=== PATIENT | male | born 1950 | race Caucasian/White ===

== ENCOUNTER 2019-08-12 12:22 | Emergency (ER) | payer MEDICARE, BC ==
[2019-08-12 12:59] VITALS: BP 138/66; PULSE 92
--- NOTE | 2019-08-12 14:16 | EDM.PDOC ---
ED HPI GENERAL MEDICAL PROBLEM - General Chief Complaint: Head Injury Stated Complaint: FALL - R EYE SWOLLEN Time Seen by Provider: 08/12/19 13:45 Source of Information: Reports: Patient History Limitations: Reports: No Limitations - History of Present Illness INITIAL COMMENTS - FREE TEXT/NARRATIVE: Very pleasant 69-year-old presents with his son today for evaluation of head trauma. He has had ongoing issues with falls at home, currently undergoing workup by multiple specialists and working with his PCP to determine the etiology of this. He presents today because two nights ago he had 3 falls at home and struck the right side of his face. This morning he noted the bruising and swelling had become quite prominent, his son contacted a friend who is an ER doctor and they were instructed to come to the emergency department. 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 In addition to this he has COPD , currently on home O2, as well as extensive coronary artery disease. The patient denies any significant pain. He is having no headache. No vision changes. No numbness or weakness in the extremities. No neck pain. - Related Data Allergies Allergy/AdvReac Type Severity Reaction Status Date / Time No Known Allergies Allergy Verified 08/12/19 12:41 Home Meds: Home Meds Latanoprost [Xalatan 0.005% Ophth Soln] 1 drop EYEBOTH BEDTIME 02/03/14 [History ] Metoprolol Tartrate [Lopressor] 25 mg PO BID 02/03/14 [History] Multivitamin [Multivitamins] 1 each PO DAILY 02/03/14 [History] Simvastatin [Zocor] 20 mg PO BEDTIME 02/07/14 [History] Citalopram Hydrobromide [Celexa] 20 mg PO DAILY 08/03/19 [History] ClonazePAM [KlonoPIN] 0.5 mg PO BEDTIME 08/03/19 [History] Furosemide 40 mg PO BID 08/03/19 [History] Losartan [Cozaar] 25 mg PO DAILY 08/03/19 [History] Melatonin 5 mg PO BEDTIME 08/03/19 [History] NIFEdipine [Adalat cc] 30 mg PO DAILY 08/03/19 [History] Naproxen Sodium 220 mg PO DAILY 08/03/19 [History] Rivaroxaban [Xarelto] 20 mg PO BEDTIME 08/03/19 [History] Timolol [Betimol 0.5% Ophth Soln] 1 drop EYEBOTH ASDIRECTED 08/03/19 [History] Zolpidem Tartrate 10 mg PO BEDTIME 08/03/19 [History] Past Medical History HEENT History: Reports: Hard of Hearing, Impaired Vision Cardiovascular History: Reports: CAD, Heart Failure, High Cholesterol, Hypertension, PVD, Stents Respiratory History: Reports: COPD, Sleep Apnea, SOB Musculoskeletal History: Reports: None Psychiatric History: Reports: Anxiety, Depression Endocrine/Metabolic History: Reports: Obesity/BMI 30+ Hematologic History: Reports: Anticoagulation Therapy, Blood Transfusion(s) Oncologic (Cancer) History: Reports: Basal Cell Carcinoma 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 Dermatologic History: Reports: None - Past Surgical History Head Surgeries/Procedures: Reports: None HEENT Surgical History: Reports: None Cardiovascular Surgical History: Reports: Coronary Artery Stent Respiratory Surgical History: Reports: None Endocrine Surgical History: Reports: None Musculoskeletal Surgical History: Reports: Other (See Below) Other Musculoskeletal Surgeries/Procedures:: right leg, right thumb, knee surgery Oncologic Surgical History: Reports: None Dermatological Surgical History: Reports: Skin Biopsy, Skin Graft Social & Family History - Tobacco Use Smoking Status *Q: Current Every Day Smoker Years of Tobacco use: 55 Packs/Tins Daily: 1 Used Tobacco, but Quit: No Second Hand Smoke Exposure: No - Caffeine Use Caffeine Use: Reports: Coffee, Soda - Recreational Drug Use Recreational Drug Use: No ED ROS GENERAL - Review of Systems Review Of Systems: See Below Constitutional: Reports: No Symptoms HEENT: Reports: No Symptoms Respiratory: Reports: No Symptoms Cardiovascular: Reports: No Symptoms Endocrine: Reports: No Symptoms GI/Abdominal: Reports: No Symptoms : Reports: No Symptoms Musculoskeletal: Reports: No Symptoms Skin: Reports: Bruising Neurological: Reports: No Symptoms Psychiatric: Reports: No Symptoms Hematologic/Lymphatic: Reports: Easy Bruising Immunologic: Reports: No Symptoms ED EXAM, HEAD INJURY - Physical Exam Exam: See Below Exam Limited By: No Limitations General Appearance: Alert, No Apparent Distress Head: Other (Scattered ecchymosis on the right forehead, periorbital, and right cheek. Extraocular movements are intact without pain. No proptosis. No facial bone instability.) Nexus Criteria: No: Posterior, Midline Cervical Tenderness, Evidence of Intoxication, Altered Level of Consciousness, Focal Neurological Deficit, Painful Distraction Injuries Eyes: Bilateral Eye: EOMI Ears: Normal External Exam Nose: Normal Inspection Throat/Mouth: Normal Inspection Neck: Non-Tender. No: Limited Range of Motion, Painful Range of Motion, Paraspinous Muscle Tender, Spinous Processes Tender, Tenderness, Tender Lateral , Tender Midline Respiratory: No Respiratory Distress, Other (distant lung sounds) Cardiovascular: Regular Rate, Rhythm GI/Abdominal Exam: Soft, Non-Tender Back Exam: Other (old appearing soft tissue echymosis right flank) Neurologic: No Motor/Sensory Deficits, Oriented x 3. No: Motor Weakness Skin: Normal Color, Warm/Dry Course - Vital Signs Last Recorded V/S: Last Vital Signs Temp 35.9 C 08/12/19 12:51 Pulse 92 08/12/19 12:51 Resp 18 08/12/19 12:51 BP 138/66 08/12/19 12:51 Pulse Ox 91 L 08/12/19 12:51 - Re-Assessments/Exams Free Text/Narrative Re-Assessment/Exam: 69-year-old presents with concerns of right-sided facial trauma after mechanical fall. He is on xarelto. He is neurologically intact. We had a long discussion regarding the risks benefits of his Xarelto given his frequent falls at home. Is not clear to me whether he is on this for provoked vs unprovoked DVT. He is planning to discuss this with his jewelry finisher at upcoming appointment this week and his PCP. His son was also present and understands the importance of sorting out whether it is appropriate to continue him on anticoagulation. Regarding the traumatic workup, he has no evidence of facial bone instability, intact extraocular movements setting of previous dedicated facial bone imaging. We will obtain a noncontrast CT of the head. I have clinically cleared his C-spine. Do not feel that further traumatic workup is indicated at this time. 08/12/19 14:18 Free Text/Narrative Re-Assessment/Exam: Head CT unremarkable Safe for discharge in care of his son 08/12/19 15:25 Departure - Departure Time of Disposition: 15:25 Disposition: Home, Self-Care 01 Clinical Impression: Anticoagulant long-term use Facial bruising Qualifiers: Encounter type: initial encounter Qualified Code(s): S00.83XA - Contusion of other part of head, initial encounter Fall Qualifiers: Encounter type: initial encounter Qualified Code(s): W19.XXXA - Unspecified fall, initial encounter - Discharge Information Referrals: Sixto Kay MD [Primary Care Provider] - Forms: ED Department Discharge Additional Instructions: Please discuss your falls with your jewelry finisher and primary doctor, as you may want to consider stopping your blood thinner. Return to the ER anytime you fall and hit your head while you are on blood thinners.
--- NOTE | 2019-08-12 15:17 | CRLCT ---
INDICATION: Fall. Patient on blood thinners. TECHNIQUE: CT head without contrast. COMPARISON: Brain MRI August 08, 2019. FINDINGS: CSF spaces: Within normal limits for age. Brain parenchyma and extra-axial spaces: The jasso-white differentiation is normal. No sign of mass, hemorrhage, or midline shift. No extra-axial fluid collection. Skull base and calvarium: The visualized paranasal sinuses and mastoid air cells demonstrate no acute or significant findings. The visualized orbits are grossly unremarkable. No skull fractures. There are right frontal post craniotomy changes. A frontal scalp hematoma is present. IMPRESSION: Frontal scalp hematoma. No intracranial hemorrhage or fracture. Dictated by Monroe Hayes MD @ 08/12/2019 3:16:19 PM Please note that all CT scans at this facility use dose modulation, iterative reconstruction, and/or weight-based dosing when appropriate to reduce radiation dose to as low as reasonably achievable. Dictated by: Monroe Hayes MD @ 08/12/2019 15:16:23 (Electronically Signed)
== END 2019-08-12 15:36 | disposition home or self-care (01) ==
LOC: JP.ED 12:22
DX: S00.83XA Contusion of other part of head, initial encounter (principal); J44.9 Chronic obstructive pulmonary disease, unspecified; F17.210 Nicotine dependence, cigarettes, uncomplicated; E78.00 Pure hypercholesterolemia, unspecified; E66.9 Obesity, unspecified; F41.9 Anxiety disorder, unspecified; F32.9 Major depressive disorder, single episode, unspecified; Z79.01 Long term (current) use of anticoagulants; Z79.899 Other long term (current) drug therapy; Z68.43 Body mass index [BMI] 50.0-59.9, adult; W19.XXXA Unspecified fall, initial encounter
CPT/HCPCS: 70450; 99282; 99283-25

== ENCOUNTER 2019-08-25 11:37 | Inpatient (IN) | payer MEDICARE, BC ==
[2019-08-25] MEDS ORDERED: Albuterol 0.083% 2.5 MG/3 ML Neb Soln NEB PRN (11:53)
[2019-08-25] MEDS ORDERED: Sodium Chloride 0.9% 10 ML Syringe FLUSH PRN (11:53)
--- NOTE | 2019-08-25 12:07 | PCM.HP.2 ---
H&P History of Present Illness - General Date of Service: 08/25/19 Admit Problem/Dx: Admission Diagnosis/Problem Admission Diagnosis/Problem Edema of lower extremity Source of Information: Patient, Family, Old Records, Provider, RN Notes Reviewed History Limitations: Reports: No Limitations - History of Present Illness Initial Comments - Free Text/Narative: Mr. Wilson is a 69-year-old gentleman who was admitted direct admission from the clinic with progressive hypoxia and anasarca. He has had difficulty over the past 3 months with progressive increase in shortness of breath and progressive fluid retention. He is undergone fairly extensive evaluation including CT scan of the chest without contrast that showed no obvious abnormalities. CT scan of the chest with IV contrast showing no evidence of pulmonary emboli or other significant abnormalities. Echocardiogram showing normal left ventricular systolic function with severe left ventricular hypertrophy and moderate diastolic dysfunction. There were no significant valvular abnormalities, they were unable to accurately assess right ventricular pressures. He has received diuretic therapy and is experienced moderate weight loss. Extremely sleepy and lethargic when seen today, commonly falling asleep during the interview. He has been evaluated for sleep apnea and is awaiting a second study for CPAP titration. Supplemental oxygen which she had not previously required. - Related Data Allergies/Adverse Reactions: Allergies Allergy/AdvReac Type Severity Reaction Status Date / Time cephalexin [From Keflex] Allergy Intermediate Swelling Verified 08/25/19 12:33 Home Medications: Home Meds Latanoprost [Xalatan 0.005% Ophth Soln] 1 drop EYEBOTH BEDTIME 02/03/14 [History ] Metoprolol Tartrate [Lopressor] 25 mg PO BID 02/03/14 [History] Multivitamin [Multivitamins] 1 each PO DAILY 02/03/14 [History] Simvastatin [Zocor] 20 mg PO BEDTIME 02/07/14 [History] Citalopram Hydrobromide [Celexa] 20 mg PO DAILY 08/03/19 [History] ClonazePAM [KlonoPIN] 0.5 mg PO BEDTIME PRN 08/03/19 [History] Furosemide 40 mg PO BID 08/03/19 [History] Losartan [Cozaar] 25 mg PO DAILY 08/03/19 [History] Melatonin 5 mg PO BEDTIME 08/03/19 [History] NIFEdipine [Adalat cc] 30 mg PO DAILY 08/03/19 [History] Naproxen Sodium 220 mg PO DAILY 08/03/19 [History] Rivaroxaban [Xarelto] 20 mg PO BEDTIME 08/03/19 [History] Zolpidem Tartrate 10 mg PO BEDTIME 08/03/19 [History] Albuterol/Ipratropium [DuoNeb 3.0-0.5 MG/3 ML] 1 vial INH Q4H PRN 08/25/19 [ History] Past Medical History HEENT History: Reports: Hard of Hearing, Impaired Vision Cardiovascular History: Reports: CAD, Heart Failure, High Cholesterol, Hypertension, PVD, Stents Respiratory History: Reports: COPD, Sleep Apnea, SOB Musculoskeletal History: Reports: None Psychiatric History: Reports: Anxiety, Depression Endocrine/Metabolic History: Reports: Obesity/BMI 30+ Hematologic History: Reports: Anticoagulation Therapy, Blood Transfusion(s) Oncologic (Cancer) History: Reports: Basal Cell Carcinoma 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 Dermatologic History: Reports: None - Past Surgical History Head Surgeries/Procedures: Reports: None HEENT Surgical History: Reports: None Cardiovascular Surgical History: Reports: Coronary Artery Stent Respiratory Surgical History: Reports: None Endocrine Surgical History: Reports: None Musculoskeletal Surgical History: Reports: Other (See Below) Other Musculoskeletal Surgeries/Procedures:: right leg, right thumb, knee surgery Oncologic Surgical History: Reports: None Dermatological Surgical History: Reports: Skin Biopsy, Skin Graft Social & Family History - Caffeine Use Caffeine Use: Reports: Coffee, Soda H&P Review of Systems - Review of Systems: Review Of Systems: See Below General: Reports: Malaise, Weakness. Denies: Fever, Chills HEENT: Reports: No Symptoms Pulmonary: Reports: Shortness of Breath, Cough. Denies: Wheezing, Pleuritic Chest Pain, Sputum, Hemoptysis Cardiovascular: Reports: Dyspnea on Exertion, Edema. Denies: Chest Pain, Palpitations, Orthopnea, PND, Lightheadedness Gastrointestinal: Reports: No Symptoms Genitourinary: Reports: No Symptoms Musculoskeletal: Reports: No Symptoms Skin: Reports: No Symptoms Psychiatric: Reports: No Symptoms Neurological: Reports: No Symptoms Hematologic/Lymphatic: Reports: No Symptoms Immunologic: Reports: No Symptoms Exam - Exam Exam: See Below - Exam Quality Assessment: DVT Prophylaxis General: Oriented, Cooperative, Mild Distress, Lethargic HEENT: Conjunctiva Clear, Hearing Intact, Mucosa Moist & [place], Normal Nasal Septum, Posterior Pharynx Clear, Pupils Equal Neck: Supple, Trachea Midline, +2 Carotid Pulse wo Bruit Lungs: Clear to Auscultation, Normal Respiratory Effort, Decreased Breath Sounds. No: Rales, Rhonchi, Wheezing Cardiovascular: Regular Rate, Regular Rhythm, Normal S1, Normal S2. No: Systolic Murmur, Diastolic Murmur GI/Abdominal Exam: Soft, Non-Tender, No Organomegaly, No Distention Back Exam: Normal Inspection, Full Range of Motion Extremities: Other (Anasarca with changes of chronic venous stasis) Skin: Warm, Dry Neurological: Cranial Nerves Intact, Strength Equal Bilateral, Normal Speech, Normal Tone, Sensation Intact. No: Focal Deficit Neuro Extensive - Mental Status: Normal Mood/Affect, Normal Cognition, Memory Intact - Patient Data Result Diagrams: 08/25/19 12:22 08/25/19 12:22 *Q Meaningful Use (ADM) - VTE Risk Assess *Q Each Risk Factor Represents 1 Point: Obesity ( BMI > 25 kg/m2), Congestive heart failure (CHF), Abnormal Pulmonary Function (COPD) Total Score 1 Point Risk Factors: 3 Each Risk Factor Represents 2 Points: Age 60 - 74 Years Total Score 2 Point Risk Factors: 2 Each Risk Factor Represents 3 Points: None Total Score 3 Point Risk Factors: 0 Each Risk Factor Represents 5 Points: None Total Score 5 Point Risk Factors: 0 Venous Thromboembolism Risk Factor Score *Q: 5 Problem List Initiated/Reviewed/Updated: Yes Orders Last 24hrs: Active Orders 24 hr Category Date Time Status Patient Status [ADT] Routine ADT 08/25/19 11:53 Active Ambulate [RC] QID Care 08/25/19 11:53 Active Cardiac Monitoring [RC] .As Directed Care 08/25/19 11:55 Active Height and Weight [RC] DAILY Care 08/25/19 11:53 Active Intake and Output [RC] QSHIFT Care 08/25/19 11:53 Active Notify Provider Vital Signs [RC] ASDIRECTED Care 08/25/19 11:53 Active Oxygen Therapy [RC] PRN Care 08/25/19 11:53 Active Pulse Oximetry [RC] CONTINUOUS Care 08/25/19 11:56 Active RT Aerosol Therapy [RC] ASDIRECTED Care 08/25/19 11:59 Active Up With Assistance [RC] ASDIRECTED Care 08/25/19 11:53 Active Up to Chair [RC] QID Care 08/25/19 11:53 Active VTE/DVT Education [RC] Per Unit Routine Care 08/25/19 11:53 Active Vital Signs [RC] Q4H Care 08/25/19 11:53 Active 2 Gram Sodium Diet [DIET] Diet 08/25/19 Lunch Active Chest 2V [CR] Stat Exams 08/25/19 11:53 Ordered CBC WITH AUTO DIFF [HEME] Stat Lab 08/25/19 11:53 Ordered COMPREHENSIVE METABOLIC PN,CMP [CHEM] Stat Lab 08/25/19 11:53 Ordered MAGNESIUM [CHEM] Stat Lab 08/25/19 11:53 Ordered Acetaminophen [Tylenol] Med 08/25/19 11:53 Active 650 mg PO Q4H PRN Albuterol [Proventil Neb Soln] Med 08/25/19 11:53 Active 2.5 mg NEB Q4H PRN Albuterol/Ipratropium [DuoNeb 3.0-0.5 MG/3 ML] Med 08/25/19 16:00 Ordered 3 ml NEB QID Bumetanide [Bumex] Med 08/25/19 11:53 Once 4 mg IVPUSH ONETIME ONE Polyethylene Glycol 3350 [MiraLAX] Med 08/25/19 11:53 Ordered 17 gm PO DAILY PRN Sodium Chloride 0.9% [Saline Flush] Med 08/25/19 11:53 Ordered 10 ml FLUSH ASDIRECTED PRN Saline Lock Insert [OM.PC] Routine Oth 08/25/19 11:53 Ordered Resuscitation Status Routine Resus Stat 08/25/19 11:53 Ordered Medication Orders Acetaminophen (Tylenol) 650 mg PO Q4H PRN PRN Reason: Pain (Mild 1-3)/fever Albuterol (Proventil Neb Soln) 2.5 mg NEB Q4H PRN PRN Reason: Shortness Of Breath/wheezing Albuterol/Ipratropium (Duoneb 3.0-0.5 Mg/3 Ml) 3 ml NEB QID VANESSA Bumetanide (Bumex) 4 mg IVPUSH ONETIME ONE Stop: 08/25/19 11:54 Polyethylene Glycol (Miralax) 17 gm PO DAILY PRN PRN Reason: Constipation Sodium Chloride (Saline Flush) 10 ml FLUSH ASDIRECTED PRN PRN Reason: Keep Vein Open Assessment/Plan Comment:: ASSESSMENT AND PLAN HYPOXIA-likely multifactorial secondary to hypoventilation from obesity and chronic sleep apnea. There also appears to be some component of diastolic congestive heart failure. As the x-ray shows atelectasis versus infiltrate right middle lobe. White blood cell count is within normal range, he has had no significant temperature elevation, minimal cough, moderate elevation in CRP and normal procalcitonin. Previous evaluation has included negative CT scan for pulmonary emboli and echocardiogram showing normal systolic function with moderate diastolic dysfunction and severe left ventricular hypertrophy. -Arterial blood gases -Hold on antibiotic therapy -Trial of BiPAP -IV Bumex for diuresis -Repeat echocardiogram to reassess left ventricular function ANASARCA-he has a known history of chronic peripheral edema with venous stasis, significantly worse over the past few months. Echocardiogram was unable to estimate right-sided pressures, suspect that he does have some component of cor pulmonale related to underlying lung disease and sleep apnea. -2 g sodium diet -Diuretic therapy as above DIASTOLIC CONGESTIVE HEART FAILURE -Diuretic therapy as above SLEEP APNEA-he has undergone a sleep study showing evidence of obstructive sleep apnea. He has been unable to get in for his CPAP titration study. -Trial of BiPAP as above CORONARY ARTERY DISEASE-currently asymptomatic, denies any symptoms of chest pain or pressure. Recently saw cardiology and did undergo some testing in [place]. Will obtain cardiology notes for review. -Continue outpatient medical therapy MAINTENANCE ISSUES -DVT prophylaxis; current therapy with Xarelto should provide adequate DVT prophylaxis -GI prophylaxis; not indicated -Pena catheter; not indicated -Nutrition; 2 g sodium diet -Nicotine dependence; 21 mg nicotine patch CODE STATUS-FULL CODE ADMISSION STATUS-patient will be admitted to inpatient status, expect at least a 2 night hospital stay for evaluation and management of problems as outlined above. At the time of this admission I do not reasonably expected evaluation and management of this problem will require more than a 96 hour hospital stay. DISPOSITION-anticipate discharge to home after the hospital stay. PRIMARY CARE PROVIDER-Dr. Kay - Mortality Measure Prognosis:: Good
--- NOTE | 2019-08-25 13:01 | CRLCR ---
Indication: Hypoxia Technique: Chest 2 views Comparison: None Findings: Cardiovascular and mediastinum: Cardiomegaly with diffuse pulmonary vascular congestion. Lungs and pleural spaces: Large dense airspace opacity in the right middle lobe. Remainder of the lungs and pleural spaces are clear. No pneumothorax. Bones and soft tissues: No significant findings. Impression: Large area of pneumonia and/or atelectasis in the right middle lobe. There is also evidence of CHF with diffuse interstitial edema. Dictated by Monroe Hayes MD @ Aug 25 2019 12:58PM Signed by Dr. Monroe Hayes @ Aug 25 2019 12:59PM
[2019-08-25] MEDS ORDERED: Bumetanide 1 MG/4 ML MDV IVPUSH ONE (14:00)
[2019-08-25] MEDS: Albuterol/Ipratropium 3.0-0.5 MG/3 ML Neb Soln NEB SCH ×2 (14:27→20:24)
[2019-08-25] MEDS: Rivaroxaban 10 MG Tab PO SCH (17:04)
[2019-08-25] MEDS: Levofloxacin/Dextrose 5%-Water 750 MG in Premix Bag 1 BAG IV SCH (20:29)
[2019-08-25] MEDS ORDERED: Non-Formulary Medication 1 Each (Rivaroxaban [Xarelto] 20 MG) PO SCH (21:00)
[2019-08-25] MEDS ORDERED: Non-Formulary Medication 1 Each (Melatonin [Melatonin] 5 MG) PO SCH (21:00)
[2019-08-25] MEDS: Melatonin 3 MG Tab PO SCH (21:20)
[2019-08-25] MEDS: Latanoprost 0.005% Ophth Soln 2.5 ML Bottle EYEBOTH SCH (21:21)
[2019-08-25] MEDS: Metoprolol Tartrate 25 MG Tab PO SCH (21:21)
[2019-08-26] MEDS: ClonazePAM 0.5 MG Tab PO PRN ×2 (03:37→22:40)
[2019-08-26] MEDS: Albuterol/Ipratropium 3.0-0.5 MG/3 ML Neb Soln NEB SCH ×4 (06:59→21:07)
[2019-08-26] MEDS ORDERED: Potassium Chloride 20 MEQ Tab.ER PO ONE ×2 (09:00→17:00)
[2019-08-26] MEDS ORDERED: Bumetanide 1 MG/4 ML MDV IVPUSH ONE (09:00)
[2019-08-26] MEDS ORDERED: Non-Formulary Medication 1 Each (Citalopram Hydrobromide [Celexa] 20 MG) PO SCH (09:00)
[2019-08-26] MEDS ORDERED: Citalopram 20 MG Tab PO SCH (09:00)
[2019-08-26] MEDS: Losartan 25 MG Tab PO SCH (09:02)
[2019-08-26] MEDS: Metoprolol Tartrate 25 MG Tab PO SCH ×2 (09:03→21:14)
--- NOTE | 2019-08-26 10:55 | CRLCR ---
Indication: Follow-up atelectasis/infiltrate. Technique: Single AP portable view of the chest was obtained Comparison: August 25, 2019. Findings: The heart is enlarged. Bibasilar atelectasis and/or infiltrates are identified. There is improved aeration of the right lower lobe. No pleural effusion or pneumothorax identified. Median sternotomy wires are identified. Impression: Improved aeration of the right lower lobe Dictated by Sarah Roche MD @ Aug 26 2019 10:53AM Signed by Dr. Sarah Roche @ Aug 26 2019 10:54AM
--- NOTE | 2019-08-26 10:56 | PCM.PN ---
- General Info Date of Service: 08/26/19 Subjective Update: Mr. Wilson is shown only very minimal improvement since admission yesterday. He is currently on noninvasive positive pressure ventilation with adequate tidal volumes. Chest x-ray shows area of atelectasis versus infiltrate somewhat improved. Continued evidence of congestive heart failure. Renal function slightly worse with diuresis yesterday. He remains very sleepy and lethargic, difficult to arouse and does admit to ongoing depression. He is not very interested in participating in conversation, unable to obtain a meaningful history concerning symptoms or review of systems. - Review of Systems General: Denies: Chills - Patient Data Vitals - Most Recent: Last Vital Signs Temp 96.0 F 08/26/19 07:00 Pulse 88 08/26/19 09:03 Resp 22 H 08/26/19 09:00 BP 133/78 08/26/19 09:03 Pulse Ox 96 08/26/19 09:00 Weight - Most Recent: 336 lb 6.4 oz I&O - Last 24 Hours: Intake & Output 08/25/19 08/26/19 08/26/19 22:59 06:59 14:59 Intake Total 690 780 Output Total 2400 900 600 Balance -1710 -120 -600 Lab Results Last 24 Hours: Laboratory Results - last 24 hr 08/25/19 08/25/19 08/25/19 Range/Units 12:20 12:22 12:22 WBC 8.6 (4.5-11.0) K/uL RBC 4.13 L (4.30-5.90) M/uL Hgb 10.8 L (12.0-15.0) g/dL Hct 37.6 L (40.0-54.0) % MCV 91 (80-98) fL MCH 26 L (27-31) pg MCHC 29 L (32-36) % Plt Count 191 (150-400) K/uL Neut % (Auto) 71 H (36-66) % Lymph % (Auto) 14 L (24-44) % [place] % (Auto) 13 H (2-6) % Eos % (Auto) 2 (2-4) % Baso % (Auto) 1 (0-1) % Puncture Site ABG pH (7.350-7.450) ABG pCO2 (35.0-42.0) mmHg ABG pO2 (75.0-100.0) mmHg ABG HCO3 (22.0-26.0) mmol/L ABG Total CO2 (23.0-27.0) mmol/L ABG O2 Saturation (95.0-98.0) % ABG O2 Content (15.0-23.0) %vol ABG Base Excess mm/L ABG Hemoglobin (13.5-18.0) g/dL ABG Oxyhemoglobin % ABG Carboxyhemoglobin (0.0-1.6) % ABG Methemoglobin % Santiago Test O2 Delivery Device Oxygen Flow Rate L Sodium 141 (140-148) mmol/L Potassium 3.9 (3.6-5.2) mmol/L Chloride 101 (100-108) mmol/L Carbon Dioxide 33 H (21-32) mmol/L Anion Gap 10.9 (5.0-14.0) mmol/L BUN 32 H (7-18) mg/dL Creatinine 1.3 (0.8-1.3) mg/dL Est Cr Clr Drug Dosing 53.81 mL/min Estimated GFR (MDRD) 54 L (>60) Glucose 104 (74-106) mg/dL Calcium 9.0 (8.5-10.1) mg/dL Magnesium 2.2 (1.8-2.4) mg/dL Total Bilirubin 0.8 (0.2-1.0) mg/dL AST 37 (15-37) U/L ALT 41 (12-78) U/L Alkaline Phosphatase 80 (46-116) U/L C-Reactive Protein (0.0-0.3) mg/dL Total Protein 7.5 (6.4-8.2) g/dL Albumin 2.9 L (3.4-5.0) g/dL Globulin 4.6 H (2.3-3.5) g/dL Albumin/Globulin Ratio 0.6 L (1.2-2.2) Procalcitonin < 0.05 ng/mL TSH, Ultra Sensitive (0.358-3.740) uIU/mL 08/25/19 08/25/19 08/25/19 Range/Units 15:21 15:21 22:35 WBC (4.5-11.0) K/uL RBC (4.30-5.90) M/uL Hgb (12.0-15.0) g/dL Hct (40.0-54.0) % MCV (80-98) fL MCH (27-31) pg MCHC (32-36) % Plt Count (150-400) K/uL Neut % (Auto) (36-66) % Lymph % (Auto) (24-44) % [place] % (Auto) (2-6) % Eos % (Auto) (2-4) % Baso % (Auto) (0-1) % Puncture Site Rt radial ABG pH 7.416 (7.350-7.450) ABG pCO2 55.3 H (35.0-42.0) mmHg ABG pO2 62.4 L (75.0-100.0) mmHg ABG HCO3 34.9 H (22.0-26.0) mmol/L ABG Total CO2 32.2 H (23.0-27.0) mmol/L ABG O2 Saturation 91.2 L (95.0-98.0) % ABG O2 Content 12.8 L (15.0-23.0) %vol ABG Base Excess 9.2 mm/L ABG Hemoglobin 10.3 L (13.5-18.0) g/dL ABG Oxyhemoglobin 88.4 % ABG Carboxyhemoglobin 2.6 H (0.0-1.6) % ABG Methemoglobin 0.5 % Santiago Test Pass O2 Delivery Device Nasal cannula Oxygen Flow Rate L Sodium (140-148) mmol/L Potassium (3.6-5.2) mmol/L Chloride (100-108) mmol/L Carbon Dioxide (21-32) mmol/L Anion Gap (5.0-14.0) mmol/L BUN (7-18) mg/dL Creatinine (0.8-1.3) mg/dL Est Cr Clr Drug Dosing mL/min Estimated GFR (MDRD) (>60) Glucose (74-106) mg/dL Calcium (8.5-10.1) mg/dL Magnesium (1.8-2.4) mg/dL Total Bilirubin (0.2-1.0) mg/dL AST (15-37) U/L ALT (12-78) U/L Alkaline Phosphatase (46-116) U/L C-Reactive Protein 2.71 H (0.0-0.3) mg/dL Total Protein (6.4-8.2) g/dL Albumin (3.4-5.0) g/dL Globulin (2.3-3.5) g/dL Albumin/Globulin Ratio (1.2-2.2) Procalcitonin ng/mL TSH, Ultra Sensitive 1.613 (0.358-3.740) uIU/mL 08/26/19 08/26/19 08/26/19 Range/Units 05:40 05:40 10:25 WBC 7.9 (4.5-11.0) K/uL RBC 3.86 L (4.30-5.90) M/uL Hgb 10.3 L (12.0-15.0) g/dL Hct 35.4 L (40.0-54.0) % MCV 92 (80-98) fL MCH 27 (27-31) pg MCHC 29 L (32-36) % Plt Count 179 (150-400) K/uL Neut % (Auto) 72 H (36-66) % Lymph % (Auto) 14 L (24-44) % [place] % (Auto) 12 H (2-6) % Eos % (Auto) 2 (2-4) % Baso % (Auto) 0 (0-1) % Puncture Site Rt radial ABG pH 7.421 (7.350-7.450) ABG pCO2 53.3 H (35.0-42.0) mmHg ABG pO2 64.1 L (75.0-100.0) mmHg ABG HCO3 34.0 H (22.0-26.0) mmol/L ABG Total CO2 31.3 H (23.0-27.0) mmol/L ABG O2 Saturation 92.0 L (95.0-98.0) % ABG O2 Content 13.3 L (15.0-23.0) %vol ABG Base Excess 8.6 mm/L ABG Hemoglobin 10.6 L (13.5-18.0) g/dL ABG Oxyhemoglobin 89.3 % ABG Carboxyhemoglobin 2.3 H (0.0-1.6) % ABG Methemoglobin 0.6 % Santiago Test Passed O2 Delivery Device Bipap Oxygen Flow Rate L Sodium 140 (140-148) mmol/L Potassium 3.4 L (3.6-5.2) mmol/L Chloride 100 (100-108) mmol/L Carbon Dioxide 34 H (21-32) mmol/L Anion Gap 9.4 (5.0-14.0) mmol/L BUN 32 H (7-18) mg/dL Creatinine 1.4 H (0.8-1.3) mg/dL Est Cr Clr Drug Dosing 49.97 mL/min Estimated GFR (MDRD) 50 L (>60) Glucose 99 (74-106) mg/dL Calcium 8.3 L (8.5-10.1) mg/dL Magnesium (1.8-2.4) mg/dL Total Bilirubin (0.2-1.0) mg/dL AST (15-37) U/L ALT (12-78) U/L Alkaline Phosphatase (46-116) U/L C-Reactive Protein (0.0-0.3) mg/dL Total Protein (6.4-8.2) g/dL Albumin (3.4-5.0) g/dL Globulin (2.3-3.5) g/dL Albumin/Globulin Ratio (1.2-2.2) Procalcitonin ng/mL TSH, Ultra Sensitive (0.358-3.740) uIU/mL Med Orders - Current: Current Medications Acetaminophen (Tylenol) 650 mg PO Q4H PRN PRN Reason: Pain (Mild 1-3)/fever Albuterol (Proventil Neb Soln) 2.5 mg NEB Q4H PRN PRN Reason: Shortness Of Breath/wheezing Albuterol/Ipratropium (Duoneb 3.0-0.5 Mg/3 Ml) 3 ml NEB QIDRT [facility] Last Admin: 08/26/19 06:59 Dose: 3 ml Bumetanide (Bumex) 2 mg IVPUSH Q12H [facility] Citalopram Hydrobromide (Celexa) 40 mg PO DAILY [facility] Clonazepam (Klonopin) 0.5 mg PO BEDTIME PRN PRN Reason: Anxiety Last Admin: 08/26/19 03:37 Dose: 0.5 mg Levofloxacin/Dextrose 750 mg/ (Premix) 150 mls @ 100 mls/hr IV Q24H [facility] Last Admin: 08/25/19 20:29 Dose: 100 mls/hr Latanoprost (Xalatan 0.005% Ophth Soln) 0 ml EYEBOTH BEDTIME [facility] Last Admin: 08/25/19 21:21 Dose: 1 drop Losartan Potassium (Cozaar) 25 mg PO DAILY [facility] Last Admin: 08/26/19 09:02 Dose: 25 mg Melatonin (Melatonin) 6 mg PO BEDTIME [facility] Last Admin: 08/25/19 21:20 Dose: Not Given Metoprolol Tartrate (Lopressor) 25 mg PO BID [facility] Last Admin: 08/26/19 09:03 Dose: 25 mg Polyethylene Glycol (Miralax) 17 gm PO DAILY PRN PRN Reason: Constipation Potassium Chloride (Klor-Con M20) 40 meq PO ONETIME ONE Stop: 08/26/19 17:01 Rivaroxaban (Xarelto) 20 mg PO WITHDINNER [facility] Last Admin: 08/25/19 17:04 Dose: 20 mg Sodium Chloride (Saline Flush) 10 ml FLUSH ASDIRECTED PRN PRN Reason: Keep Vein Open Discontinued Medications Bumetanide (Bumex) 4 mg IVPUSH ONETIME ONE Stop: 08/25/19 14:01 Last Admin: 08/25/19 13:56 Dose: 4 mg Bumetanide (Bumex) 2 mg IVPUSH ONETIME ONE Stop: 08/26/19 09:01 Last Admin: 08/26/19 09:39 Dose: 2 mg Citalopram Hydrobromide (Celexa) 20 mg PO DAILY [facility] Last Admin: 08/26/19 09:02 Dose: 20 mg Potassium Chloride (Klor-Con M20) 40 meq PO ONETIME ONE Stop: 08/26/19 09:01 Last Admin: 08/26/19 09:03 Dose: 40 meq - Exam Quality Assessment: Supplemental Oxygen (Noninvasive positive pressure ventilation), DVT Prophylaxis General: Alert, Oriented. No: Cooperative Lungs: Decreased Breath Sounds, Rales. No: Rhonchi, Rub, Wheezing Cardiovascular: Regular Rate, No Murmurs, Irregular Rhythm GI/Abdominal Exam: Soft, Non-Tender, No Organomegaly, No Distention Extremities: Pedal Edema Sepsis Event Note - Evaluation Sepsis Screening Result: No Definite Risk - Focused Exam Vital Signs: Vital Signs Temp Pulse Pulse Resp BP BP Pulse Ox 08/26/19 09:03 88 133/78 08/26/19 09:02 133/78 08/26/19 09:00 88 22 H 133/78 96 08/26/19 07:35 95 08/26/19 07:00 96.0 F 82 22 H 137/75 90 L 08/26/19 06:59 78 08/26/19 02:47 98.0 F 83 18 114/50 L 95 08/26/19 01:21 96 Date Exam was Performed: 08/26/19 Time Exam was Performed: 10:50 - Problem List Review Problem List Initiated/Reviewed/Updated: Yes - My Orders Last 24 Hours: My Active Orders 08/25/19 11:53 Patient Status [ADT] Routine Ambulate [RC] QID Height and Weight [RC] 0400 Intake and Output [RC] QSHIFT Notify Provider Vital Signs [RC] ASDIRECTED Oxygen Therapy [RC] PRN Up With Assistance [RC] ASDIRECTED Up to Chair [RC] QID VTE/DVT Education [RC] Per Unit Routine Vital Signs [RC] Q4H Acetaminophen [Tylenol] 650 mg PO Q4H PRN Albuterol [Proventil Neb Soln] 2.5 mg NEB Q4H PRN Polyethylene Glycol 3350 [MiraLAX] 17 gm PO DAILY PRN Sodium Chloride 0.9% [Saline Flush] 10 ml FLUSH ASDIRECTED PRN Saline Lock Insert [OM.PC] Routine Resuscitation Status Routine 08/25/19 11:55 Cardiac Monitoring [RC] .As Directed 08/25/19 11:56 Pulse Oximetry [RC] CONTINUOUS 08/25/19 11:59 RT Aerosol Therapy [RC] ASDIRECTED 08/25/19 12:19 ClonazePAM [KlonoPIN] 0.5 mg PO BEDTIME PRN 08/25/19 15:00 Albuterol/Ipratropium [DuoNeb 3.0-0.5 MG/3 ML] 3 ml NEB QIDRT 08/25/19 15:54 BIPAP Adult [RT BiPAP/CPAP] [RC] ASDIRECTED 08/25/19 17:00 Rivaroxaban [Xarelto] 20 mg PO WITHDINNER 08/25/19 18:58 Blood Culture x2 Reflex Set [OM.PC] Urgent 08/25/19 19:15 CULTURE BLOOD [BC] Stat 08/25/19 19:25 CULTURE BLOOD [BC] Stat 08/25/19 20:00 Levofloxacin/Dextrose 5%-Water [Levaquin in D5W 750 MG/150 ML] 750 mg Premix Bag 1 bag IV Q24H 08/25/19 21:00 Latanoprost [Xalatan 0.005% Ophth Soln] 0 ml EYEBOTH BEDTIME Melatonin 6 mg PO BEDTIME Metoprolol Tartrate [Lopressor] 25 mg PO BID 08/25/19 Lunch 2 Gram Sodium Diet [DIET] 08/26/19 05:00 Chest 1V Frontal [CR] Routine 08/26/19 09:00 Losartan [Cozaar] 25 mg PO DAILY 08/26/19 17:00 Potassium Chloride [Klor-Con M20] 40 meq PO ONETIME ONE 08/26/19 18:30 Bumetanide [Bumex] 2 mg IVPUSH Q12H 08/27/19 05:00 BASIC METABOLIC PANEL,BMP [CHEM] Timed CBC WITH AUTO DIFF [HEME] Timed 08/27/19 09:00 Citalopram [Celexa] 40 mg PO DAILY - Plan Plan:: ASSESSMENT AND PLAN HYPOXIC AND HYPERCAPNIC RESPIRATORY FAILURE-likely multifactorial secondary to hypoventilation from obesity and chronic sleep apnea. There also appears to be some component of diastolic congestive heart failure. Possible pneumonia versus atelectasis on chest x-ray. Arterial blood gases did show evidence of CO2 retention. Repeat blood gases from this morning show that this is stable. He remains very weak and lethargic. -Continue BiPAP -IV Bumex for diuresis -Repeat echocardiogram to reassess left ventricular function RIGHT LUNG INFILTRATE-not entirely clear as to whether there is actual underlying infection. Given his very compromised respiratory status I have opted to treat for pneumonia until this becomes more clear. -Cultures pending -IV levofloxacin ANASARCA-he has a known history of chronic peripheral edema with venous stasis, significantly worse over the past few months. Echocardiogram was unable to estimate right-sided pressures, suspect that he does have some component of cor pulmonale related to underlying lung disease and sleep apnea. -2 g sodium diet -Diuretic therapy as above DIASTOLIC CONGESTIVE HEART FAILURE -Diuretic therapy as above SLEEP APNEA-he has undergone a sleep study showing evidence of obstructive sleep apnea. He has been unable to get in for his CPAP titration study. -Trial of BiPAP as above CORONARY ARTERY DISEASE-currently asymptomatic, denies any symptoms of chest pain or pressure. Recently saw cardiology and did undergo some testing in [place]. Will obtain cardiology notes for review. -Continue outpatient medical therapy MAINTENANCE ISSUES -DVT prophylaxis; current therapy with Xarelto should provide adequate DVT prophylaxis -GI prophylaxis; not indicated -Pena catheter; not indicated -Nutrition; 2 g sodium diet -Nicotine dependence; 21 mg nicotine patch CODE STATUS-FULL CODE ADMISSION STATUS-patient will be admitted to inpatient status, expect at least a 2 night hospital stay for evaluation and management of problems as outlined above. At the time of this admission I do not reasonably expected evaluation and management of this problem will require more than a 96 hour hospital stay. DISPOSITION-anticipate discharge to home after the hospital stay. PRIMARY CARE PROVIDER-Dr. Kay
[2019-08-26] MEDS: Rivaroxaban 10 MG Tab PO SCH (17:18)
[2019-08-26] MEDS: Bumetanide 2.5 MG/10 ML MDV IVPUSH SCH (17:30)
[2019-08-26] MEDS: Levofloxacin/Dextrose 5%-Water 750 MG in Premix Bag 1 BAG IV SCH (21:05)
[2019-08-26] MEDS: Melatonin 3 MG Tab PO SCH (21:14)
[2019-08-26] MEDS: Latanoprost 0.005% Ophth Soln 2.5 ML Bottle EYEBOTH SCH (21:14)
[2019-08-27] MEDS: Acetaminophen 325 MG Tab PO PRN ×3 (00:37→15:41)
[2019-08-27] MEDS: Bumetanide 2.5 MG/10 ML MDV IVPUSH SCH ×2 (06:29→17:31)
[2019-08-27] MEDS: Albuterol/Ipratropium 3.0-0.5 MG/3 ML Neb Soln NEB SCH ×4 (06:59→21:01)
[2019-08-27] MEDS: Metoprolol Tartrate 25 MG Tab PO SCH ×2 (08:36→21:21)
[2019-08-27] MEDS: Citalopram 20 MG Tab PO SCH (08:36)
[2019-08-27] MEDS: Losartan 25 MG Tab PO SCH (08:37)
[2019-08-27] MEDS ORDERED: Potassium Chloride 20 MEQ Tab.ER PO ONE ×3 (08:45→17:00)
[2019-08-27] MEDS ORDERED: Bumetanide 1 MG/4 ML MDV IVPUSH ONE (09:00)
[2019-08-27] MEDS: Polyethylene Glycol 3350 Powder 17 GM Packet PO PRN (10:55)
--- NOTE | 2019-08-27 11:20 | PCM.PN ---
- General Info Date of Service: 08/27/19 Subjective Update: Mr. Wilson is more alert and interactive today, good diuresis over the last 24 hours with IV Bumex. He has continued to experience intermittent episodes of severe anxiety with depression and suicidal ideation. Does not feel suicidal most of the time but it does seem to be triggered by severe anxiety. His dose of Celexa was increased to 40 mg yesterday. He does seem to be slowly improving with diuresis and use of non-invasive positive pressure ventilation. Functional Status: Reports: Tolerating Diet, Urinating - Review of Systems General: Reports: Weakness. Denies: Fever, Chills Pulmonary: Reports: Shortness of Breath, Cough. Denies: Pleuritic Chest Pain, Sputum, Hemoptysis, Wheezing Cardiovascular: Reports: Dyspnea on Exertion, Edema. Denies: Chest Pain, Palpitations, Orthopnea, PND, Lightheadedness Gastrointestinal: Reports: No Symptoms Psychiatric: Reports: Depression, Anxiety, Suicidal Ideation - Patient Data Vitals - Most Recent: Last Vital Signs Temp 97.7 F 08/27/19 11:03 Pulse 80 08/27/19 11:03 Resp 20 08/27/19 11:03 BP 109/46 L 08/27/19 11:03 Pulse Ox 92 L 08/27/19 11:03 Weight - Most Recent: 332 lb 12.8 oz I&O - Last 24 Hours: Intake & Output 08/26/19 08/27/19 08/27/19 22:59 06:59 14:59 Intake Total 1130 100 360 Output Total 1999 Balance -404 -539 -5878 Lab Results Last 24 Hours: Laboratory Results - last 24 hr 08/27/19 08/27/19 Range/Units 05:20 05:20 WBC 7.3 (4.5-11.0) K/uL RBC 3.98 L (4.30-5.90) M/uL Hgb 10.5 L (12.0-15.0) g/dL Hct 36.6 L (40.0-54.0) % MCV 92 (80-98) fL MCH 26 L (27-31) pg MCHC 29 L (32-36) % Plt Count 181 (150-400) K/uL Neut % (Auto) 70 H (36-66) % Lymph % (Auto) 15 L (24-44) % [place] % (Auto) 13 H (2-6) % Eos % (Auto) 2 (2-4) % Baso % (Auto) 0 (0-1) % Sodium 141 (140-148) mmol/L Potassium 3.4 L (3.6-5.2) mmol/L Chloride 99 L (100-108) mmol/L Carbon Dioxide 34 H (21-32) mmol/L Anion Gap 11.4 (5.0-14.0) mmol/L BUN 30 H (7-18) mg/dL Creatinine 1.4 H (0.8-1.3) mg/dL Est Cr Clr Drug Dosing 49.97 mL/min Estimated GFR (MDRD) 50 L (>60) Glucose 127 H (74-106) mg/dL Calcium 8.5 (8.5-10.1) mg/dL [place] Results Last 24 Hours: Microbiology 08/25/19 19:25 Aerobic Blood Culture - Preliminary Blood - Arm, Right NO GROWTH AFTER 1 DAY Anaerobic Blood Culture - Preliminary NO GROWTH AFTER 1 DAY 08/25/19 19:15 Aerobic Blood Culture - Preliminary Blood - Arm, Right NO GROWTH AFTER 1 DAY Anaerobic Blood Culture - Preliminary NO GROWTH AFTER 1 DAY Med Orders - Current: Current Medications Acetaminophen (Tylenol) 650 mg PO Q4H PRN PRN Reason: Pain (Mild 1-3)/fever Last Admin: 08/27/19 09:31 Dose: 650 mg Albuterol (Proventil Neb Soln) 2.5 mg NEB Q4H PRN PRN Reason: Shortness Of Breath/wheezing Albuterol/Ipratropium (Duoneb 3.0-0.5 Mg/3 Ml) 3 ml NEB QIDRT [facility] Last Admin: 08/27/19 10:58 Dose: 3 ml Bumetanide (Bumex) 2 mg IVPUSH Q12H [facility] Last Admin: 08/27/19 06:29 Dose: 2 mg Citalopram Hydrobromide (Celexa) 40 mg PO DAILY [facility] Last Admin: 08/27/19 08:36 Dose: 40 mg Clonazepam (Klonopin) 0.5 mg PO BEDTIME PRN PRN Reason: Anxiety Last Admin: 08/26/19 22:40 Dose: 0.5 mg Levofloxacin/Dextrose 750 mg/ (Premix) 150 mls @ 100 mls/hr IV Q24H [facility] Last Admin: 08/26/19 21:05 Dose: 100 mls/hr Latanoprost (Xalatan 0.005% Ophth Soln) 0 ml EYEBOTH BEDTIME [facility] Last Admin: 08/26/19 21:14 Dose: 1 drop Lorazepam (Ativan) 0.5 mg IVPUSH Q4H PRN PRN Reason: Anxiety Losartan Potassium (Cozaar) 25 mg PO DAILY [facility] Last Admin: 08/27/19 08:37 Dose: 25 mg Melatonin (Melatonin) 6 mg PO BEDTIME [facility] Last Admin: 08/26/19 21:14 Dose: 6 mg Metoprolol Tartrate (Lopressor) 25 mg PO BID [facility] Last Admin: 08/27/19 08:36 Dose: 25 mg Polyethylene Glycol (Miralax) 17 gm PO DAILY PRN PRN Reason: Constipation Last Admin: 08/27/19 10:55 Dose: 17 gm Potassium Chloride (Klor-Con M20) 40 meq PO ONETIME ONE Stop: 08/27/19 12:01 Potassium Chloride (Klor-Con M20) 40 meq PO ONETIME ONE Stop: 08/27/19 17:01 Rivaroxaban (Xarelto) 20 mg PO WITHDINNER [facility] Last Admin: 08/26/19 17:18 Dose: 20 mg Sodium Chloride (Saline Flush) 10 ml FLUSH ASDIRECTED PRN PRN Reason: Keep Vein Open Discontinued Medications Bumetanide (Bumex) 4 mg IVPUSH ONETIME ONE Stop: 08/25/19 14:01 Last Admin: 08/25/19 13:56 Dose: 4 mg Bumetanide (Bumex) 2 mg IVPUSH ONETIME ONE Stop: 08/26/19 09:01 Last Admin: 08/26/19 09:39 Dose: 2 mg Bumetanide (Bumex) 2 mg IVPUSH ONETIME ONE Stop: 08/27/19 09:01 Last Admin: 08/27/19 08:56 Dose: 2 mg Citalopram Hydrobromide (Celexa) 20 mg PO DAILY [facility] Last Admin: 08/26/19 09:02 Dose: 20 mg Potassium Chloride (Klor-Con M20) 40 meq PO ONETIME ONE Stop: 08/26/19 09:01 Last Admin: 08/26/19 09:03 Dose: 40 meq Potassium Chloride (Klor-Con M20) 40 meq PO ONETIME ONE Stop: 08/26/19 17:01 Last Admin: 08/26/19 17:17 Dose: 40 meq Potassium Chloride (Klor-Con M20) 40 meq PO ONETIME ONE Stop: 08/27/19 08:46 Last Admin: 08/27/19 08:37 Dose: 40 meq - Exam Quality Assessment: DVT Prophylaxis General: Alert, Oriented, Cooperative, Mild Distress Lungs: Clear to Auscultation, Normal Respiratory Effort, Decreased Breath Sounds Cardiovascular: Regular Rate, No Murmurs, Irregular Rhythm GI/Abdominal Exam: Soft, Non-Tender, No Organomegaly, No Distention Extremities: Pedal Edema Sepsis Event Note - Evaluation Sepsis Screening Result: No Definite Risk - Focused Exam Vital Signs: Vital Signs Temp Pulse Pulse Resp BP BP Pulse Ox 08/27/19 11:03 97.7 F 80 20 109/46 L 92 L 08/27/19 10:58 80 08/27/19 08:37 122/67 08/27/19 08:36 81 122/67 08/27/19 07:10 94 L 08/27/19 07:00 97.1 F 81 20 122/67 93 L 08/27/19 03:00 96.9 F 82 20 105/65 89 L 08/27/19 01:07 90 L Date Exam was Performed: 08/27/19 Time Exam was Performed: 11:10 - Problem List Review Problem List Initiated/Reviewed/Updated: Yes - My Orders Last 24 Hours: My Active Orders 08/26/19 10:54 Communication Order [RC] ASDIRECTED 08/26/19 18:30 Bumetanide [Bumex] 2 mg IVPUSH Q12H 08/27/19 09:00 Citalopram [Celexa] 40 mg PO DAILY 08/27/19 11:04 LORazepam [Ativan] 0.5 mg IVPUSH Q4H PRN 08/27/19 12:00 Potassium Chloride [Klor-Con M20] 40 meq PO ONETIME ONE 08/27/19 17:00 Potassium Chloride [Klor-Con M20] 40 meq PO ONETIME ONE 08/28/19 05:00 BASIC METABOLIC PANEL,BMP [CHEM] Timed MAGNESIUM [CHEM] Timed - Plan Plan:: ASSESSMENT AND PLAN HYPOXIC AND HYPERCAPNIC RESPIRATORY FAILURE-likely multifactorial secondary to hypoventilation from obesity and chronic sleep apnea. There also appears to be a component of diastolic congestive heart failure. Possible pneumonia versus atelectasis on chest x-ray. Arterial blood gases did show evidence of CO2 retention. Modest improvement thus far, excellent diuresis over the past 2 days. -Continue BiPAP, plan for discharged home with BiPAP -IV Bumex 2 mg every 12 hours -Repeat echocardiogram to reassess left ventricular systolic and diastolic function RIGHT LUNG INFILTRATE-not entirely clear as to whether there is actual underlying infection. Given his very compromised respiratory status I have opted to treat for pneumonia until this becomes more clear. -Cultures pending -IV levofloxacin ANASARCA-he has a known history of chronic peripheral edema with venous stasis, significantly worse over the past few months. Echocardiogram was unable to estimate right-sided pressures, suspect that he does have some component of cor pulmonale related to underlying lung disease and sleep apnea. -2 g sodium diet -Diuretic therapy as above DEPRESSION AND ANXIETY-ongoing difficulty with sleep disturbance intermittent episodes of panic attack with worsening depression and suicidal ideation. Much of this seems to be situational related to his worsening health over the past 3 months. 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 Suicidal ideation seems to be related to sporadic episodes of severe anxiety and depression with panic attacks. -Dose of Citalopram increased to 40 mg daily -Lorazepam 0.5 mg IV every 4 hours as needed -Outpatient psychiatry consult HYPOKALEMIA -Oral potassium replacement -Recheck potassium in the a.m. DIASTOLIC CONGESTIVE HEART FAILURE -Diuretic therapy as above SLEEP APNEA-he has undergone a sleep study showing evidence of obstructive sleep apnea. He has been unable to get in for his CPAP titration study. -Trial of BiPAP as above CORONARY ARTERY DISEASE-currently asymptomatic, denies any symptoms of chest pain or pressure. -Continue outpatient medical therapy MAINTENANCE ISSUES -DVT prophylaxis; current therapy with Xarelto should provide adequate DVT prophylaxis -GI prophylaxis; not indicated -Pena catheter; not indicated -Nutrition; 2 g sodium diet -Nicotine dependence; 21 mg nicotine patch CODE STATUS-FULL CODE ADMISSION STATUS-patient will be admitted to inpatient status, expect at least a 2 night hospital stay for evaluation and management of problems as outlined above. At the time of this admission I do not reasonably expected evaluation and management of this problem will require more than a 96 hour hospital stay. DISPOSITION-anticipate discharge to home after the hospital stay. PRIMARY CARE PROVIDER-Dr. Kay
[2019-08-27] MEDS ORDERED: Nicotine Polacrilex 2 MG Gum CHEW PRN (11:23)
[2019-08-27] MEDS: Nicotine 21 MG/24 Hr Patch TRDERM SCH (12:31)
[2019-08-27] MEDS: Rivaroxaban 10 MG Tab PO SCH (17:29)
[2019-08-27] MEDS: Levofloxacin/Dextrose 5%-Water 750 MG in Premix Bag 1 BAG IV SCH (19:51)
[2019-08-27] MEDS: oxyCODONE 5 MG Tab PO PRN (20:22)
[2019-08-27] MEDS: Melatonin 3 MG Tab PO SCH (21:21)
[2019-08-27] MEDS: Latanoprost 0.005% Ophth Soln 2.5 ML Bottle EYEBOTH SCH (21:22)
[2019-08-28] MEDS: oxyCODONE 5 MG Tab PO PRN ×5 (01:54→22:05)
[2019-08-28] MEDS: Polyethylene Glycol 3350 Powder 17 GM Packet PO PRN ×2 (02:05→21:07)
[2019-08-28] MEDS: Acetaminophen 325 MG Tab PO PRN ×2 (04:42→13:56)
[2019-08-28] MEDS: Bumetanide 2.5 MG/10 ML MDV IVPUSH SCH ×2 (07:10→17:55)
[2019-08-28] MEDS: Albuterol/Ipratropium 3.0-0.5 MG/3 ML Neb Soln NEB SCH ×4 (07:25→21:05)
[2019-08-28] MEDS: Nicotine 21 MG/24 Hr Patch TRDERM SCH (08:43)
[2019-08-28] MEDS: Metoprolol Tartrate 25 MG Tab PO SCH (08:44)
[2019-08-28] MEDS: Citalopram 20 MG Tab PO SCH (08:45)
[2019-08-28] MEDS: Losartan 25 MG Tab PO SCH (08:45)
--- NOTE | 2019-08-28 10:32 | PCM.PN ---
- General Info Date of Service: 08/28/19 Subjective Update: There were no acute events overnight. Patient had an excellent response to diuresis again yesterday and lower extremity edema remains fairly impressive but has been steadily improving. He is more alert and interactive today. He reports that he slept fairly well last night. He has been tolerating the NIPPV mask fairly well. Vital signs have otherwise been stable. Echocardiogram this morning showed tricuspid and mitral insufficiency as well as severe LVH and significant diastolic heart failure. Kidney function stable. Potassium normal today. Functional Status: Reports: Pain Controlled, Tolerating Diet - Review of Systems General: Reports: Weakness, Fatigue Pulmonary: Reports: Shortness of Breath Cardiovascular: Reports: Edema - Patient Data Vitals - Most Recent: Last Vital Signs Temp 36.3 C 08/28/19 07:00 Pulse 85 08/28/19 08:44 Resp 18 08/28/19 07:00 BP 140/67 08/28/19 08:45 Pulse Ox 86 L 08/28/19 10:00 Weight - Most Recent: 149.685 kg I&O - Last 24 Hours: Intake & Output 08/27/19 08/28/19 08/28/19 22:59 06:59 14:59 Intake Total 390 360 640 Output Total 1125 100 900 Balance -735 260 -260 Lab Results Last 24 Hours: Laboratory Results - last 24 hr 08/28/19 Range/Units 05:15 Sodium 141 (140-148) mmol/L Potassium 4.0 (3.6-5.2) mmol/L Chloride 100 (100-108) mmol/L Carbon Dioxide 33 H (21-32) mmol/L Anion Gap 12.0 (5.0-14.0) mmol/L BUN 28 H (7-18) mg/dL Creatinine 1.4 H (0.8-1.3) mg/dL Est Cr Clr Drug Dosing 49.97 mL/min Estimated GFR (MDRD) 50 L (>60) Glucose 104 (74-106) mg/dL Calcium 9.0 (8.5-10.1) mg/dL Magnesium 2.1 (1.8-2.4) mg/dL [facility] Results Last 24 Hours: Microbiology 08/25/19 19:15 Aerobic Blood Culture - Preliminary Blood - Arm, Right NO GROWTH AFTER 2 DAYS Anaerobic Blood Culture - Preliminary NO GROWTH AFTER 2 DAYS 08/25/19 19:25 Aerobic Blood Culture - Preliminary Blood - Arm, Right NO GROWTH AFTER 2 DAYS Anaerobic Blood Culture - Preliminary NO GROWTH AFTER 2 DAYS Med Orders - Current: Current Medications Acetaminophen (Tylenol) 650 mg PO Q4H PRN PRN Reason: Pain (Mild 1-3)/fever Last Admin: 08/28/19 04:42 Dose: 650 mg Albuterol (Proventil Neb Soln) 2.5 mg NEB Q4H PRN PRN Reason: Shortness Of Breath/wheezing Albuterol/Ipratropium (Duoneb 3.0-0.5 Mg/3 Ml) 3 ml NEB QIDRT [facility] Last Admin: 08/28/19 07:25 Dose: 3 ml Bumetanide (Bumex) 2 mg IVPUSH Q12H [facility] Last Admin: 08/28/19 07:10 Dose: 2 mg Citalopram Hydrobromide (Celexa) 40 mg PO DAILY [facility] Last Admin: 08/28/19 08:45 Dose: 40 mg Clonazepam (Klonopin) 0.5 mg PO BEDTIME PRN PRN Reason: Anxiety Last Admin: 08/26/19 22:40 Dose: 0.5 mg Latanoprost (Xalatan 0.005% Ophth Soln) 0 ml EYEBOTH BEDTIME [facility] Last Admin: 08/27/19 21:22 Dose: 1 drop Lorazepam (Ativan) 0.5 mg IVPUSH Q4H PRN PRN Reason: Anxiety Losartan Potassium (Cozaar) 25 mg PO DAILY [facility] Last Admin: 08/28/19 08:45 Dose: 25 mg Melatonin (Melatonin) 6 mg PO BEDTIME [facility] Last Admin: 08/27/19 21:21 Dose: 6 mg Nicotine (Habitrol) 21 mg TRDERM DAILY [facility] Last Admin: 08/28/19 08:43 Dose: 21 mg Nicotine Polacrilex (Nicorelief) 2 mg CHEW Q1H PRN PRN Reason: Other Oxycodone HCl (Oxycodone) 5 mg PO Q4H PRN PRN Reason: Pain Last Admin: 08/28/19 05:45 Dose: 5 mg Polyethylene Glycol (Miralax) 17 gm PO DAILY PRN PRN Reason: Constipation Last Admin: 08/28/19 02:05 Dose: 17 gm Rivaroxaban (Xarelto) 20 mg PO WITHDINNER [facility] Last Admin: 08/27/19 17:29 Dose: 20 mg Sodium Chloride (Saline Flush) 10 ml FLUSH ASDIRECTED PRN PRN Reason: Keep Vein Open Discontinued Medications Bumetanide (Bumex) 4 mg IVPUSH ONETIME ONE Stop: 08/25/19 14:01 Last Admin: 08/25/19 13:56 Dose: 4 mg Bumetanide (Bumex) 2 mg IVPUSH ONETIME ONE Stop: 08/26/19 09:01 Last Admin: 08/26/19 09:39 Dose: 2 mg Bumetanide (Bumex) 2 mg IVPUSH ONETIME ONE Stop: 08/27/19 09:01 Last Admin: 08/27/19 08:56 Dose: 2 mg Citalopram Hydrobromide (Celexa) 20 mg PO DAILY [facility] Last Admin: 08/26/19 09:02 Dose: 20 mg Levofloxacin/Dextrose 750 mg/ (Premix) 150 mls @ 100 mls/hr IV Q24H [facility] Last Admin: 08/27/19 19:51 Dose: 100 mls/hr Metoprolol Tartrate (Lopressor) 25 mg PO BID [facility] Last Admin: 08/28/19 08:44 Dose: 25 mg Potassium Chloride (Klor-Con M20) 40 meq PO ONETIME ONE Stop: 08/26/19 09:01 Last Admin: 08/26/19 09:03 Dose: 40 meq Potassium Chloride (Klor-Con M20) 40 meq PO ONETIME ONE Stop: 08/26/19 17:01 Last Admin: 08/26/19 17:17 Dose: 40 meq Potassium Chloride (Klor-Con M20) 40 meq PO ONETIME ONE Stop: 08/27/19 08:46 Last Admin: 08/27/19 08:37 Dose: 40 meq Potassium Chloride (Klor-Con M20) 40 meq PO ONETIME ONE Stop: 08/27/19 12:01 Last Admin: 08/27/19 12:32 Dose: 40 meq Potassium Chloride (Klor-Con M20) 40 meq PO ONETIME ONE Stop: 08/27/19 17:01 Last Admin: 08/27/19 17:29 Dose: 40 meq - Exam Quality Assessment: Supplemental Oxygen General: Alert, Oriented, Cooperative, No Acute Distress Lungs: Clear to Auscultation, Normal Respiratory Effort Cardiovascular: Regular Rate, Regular Rhythm GI/Abdominal Exam: Soft, No Distention Extremities: Pedal Edema (left > right ). No: Increased Warmth Skin: Warm, Dry Psy/Mental Status: Alert, Normal Affect Sepsis Event Note - Evaluation Sepsis Screening Result: No Definite Risk - Focused Exam Vital Signs: Vital Signs Temp Pulse Pulse Resp BP BP Pulse Ox 08/28/19 10:00 86 L 08/28/19 09:23 92 L 08/28/19 08:45 140/67 08/28/19 08:44 85 140/67 08/28/19 07:26 79 94 L 08/28/19 07:00 36.3 C 85 18 140/67 92 L 08/28/19 02:09 95 08/28/19 02:08 36.2 C 68 18 131/76 92 L 08/27/19 23:44 35.8 C 80 18 119/62 96 Pulse Ox 08/28/19 10:00 08/28/19 09:23 08/28/19 08:45 08/28/19 08:44 08/28/19 07:26 95 08/28/19 07:00 08/28/19 02:09 08/28/19 02:08 08/27/19 23:44 Date Exam was Performed: 08/28/19 Time Exam was Performed: 11:48 - Problem List Review Problem List Initiated/Reviewed/Updated: Yes - My Orders Last 24 Hours: My Active Orders 08/28/19 10:30 Discontinue Telemetry Monitoring [Cardiac Monitoring Discontinue] [RC] Click to Edit 08/28/19 20:00 levoFLOXacin [Levaquin] 750 mg PO Q24H 08/29/19 05:00 BASIC METABOLIC PANEL,BMP [CHEM] Timed - Plan Plan:: ASSESSMENT AND PLAN HYPOXIC AND HYPERCAPNIC RESPIRATORY FAILURE-likely multifactorial secondary to hypoventilation from obesity and chronic sleep apnea. There is also a component of diastolic congestive heart failure as noted on the echocardiogram today. Arterial blood gases did show evidence of CO2 retention. Modest improvement thus far, excellent diuresis over the past 3 days. -Continue nocturnal NIPPV, plan for discharge home with NIPPV -IV Bumex 2 mg every 12 hours RIGHT LUNG INFILTRATE-not entirely clear as to whether there is actual underlying infection. Given his very compromised respiratory status I have opted to treat for pneumonia until this becomes more clear. -Cultures pending, negative so far -Continue levofloxacin for 3 more days ANASARCA-he has a known history of chronic peripheral edema with venous stasis, significantly worse over the past few months. Echocardiogram showed diastolic dysfunction. He is improving with diuretic therapy and management as above. -2 g sodium diet -Diuretic therapy as above DEPRESSION AND ANXIETY-ongoing difficulty with sleep disturbance intermittent episodes of panic attack with worsening depression and suicidal ideation. Much of this seems to be situational related to his worsening health over the past 3 months. 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 Suicidal ideation seems to be related to sporadic episodes of severe anxiety and depression with panic attacks. -Dose of Citalopram increased to 40 mg daily -Lorazepam 0.5 mg IV every 4 hours as needed -Outpatient psychiatry consult HYPOKALEMIA improved with supplementation- -Recheck potassium in the a.m. DIASTOLIC CONGESTIVE HEART FAILURE-slowly improving. With his LVH I think he would benefit from carvedilol more than the metoprolol tartrate. -Change beta-soraida to carvedilol twice daily -Diuretic therapy as above SLEEP APNEA-he has undergone a sleep study showing evidence of obstructive sleep apnea. He has been unable to get in for his CPAP titration study. -Trial of NIPPV as above CORONARY ARTERY DISEASE-currently asymptomatic, denies any symptoms of chest pain or pressure. -Continue outpatient medical therapy MAINTENANCE ISSUES -DVT prophylaxis; current therapy with Xarelto should provide adequate DVT prophylaxis -GI prophylaxis; not indicated -Pena catheter; not indicated -Nutrition; 2 g sodium diet -Nicotine dependence; 21 mg nicotine patch DISPOSITION-anticipate discharge to home after the hospital stay. Sp Garcia MD
[2019-08-28] MEDS: Rivaroxaban 10 MG Tab PO SCH (17:55)
[2019-08-28] MEDS ORDERED: Levofloxacin 500 MG Tab PO SCH (20:00)
[2019-08-28] MEDS: Melatonin 3 MG Tab PO SCH (21:08)
[2019-08-28] MEDS: Latanoprost 0.005% Ophth Soln 2.5 ML Bottle EYEBOTH SCH (21:08)
[2019-08-28] MEDS: ClonazePAM 0.5 MG Tab PO PRN (23:37)
[2019-08-29] MEDS: oxyCODONE 5 MG Tab PO PRN ×5 (03:13→22:53)
[2019-08-29] MEDS: Acetaminophen 325 MG Tab PO PRN (03:13)
[2019-08-29] MEDS: Bumetanide 2.5 MG/10 ML MDV IVPUSH SCH ×2 (06:00→17:56)
[2019-08-29] MEDS: Albuterol/Ipratropium 3.0-0.5 MG/3 ML Neb Soln NEB SCH ×4 (07:00→20:14)
[2019-08-29] MEDS: Losartan 25 MG Tab PO SCH (08:47)
[2019-08-29] MEDS: Citalopram 20 MG Tab PO SCH (08:48)
[2019-08-29] MEDS: Nicotine 21 MG/24 Hr Patch TRDERM SCH (08:56)
[2019-08-29] MEDS ORDERED: Gabapentin 100 MG Cap PO ONE (09:35)
--- NOTE | 2019-08-29 09:38 | PCM.PN ---
- General Info Date of Service: 08/29/19 Subjective Update: Overnight the patient had difficulty with urinary frequency and urgency. He had several small frequent voids. This seems to be a little bit better this morning. He also had difficulty with pain in his right buttocks and right hip. He had some weakness in the right leg last night but this has improved this morning. He had some anxiety overnight but seems to be doing okay this morning. Still weak and requiring a walker as well as an assist of 2 to get up from the chair. Good response to diuresis again yesterday. Kidney function stable. He did have difficulty with the NIPPV last night because of the frequent urination. Functional Status: Reports: Pain Controlled, Tolerating Diet - Review of Systems General: Reports: Weakness Musculoskeletal: Reports: Leg Pain (right hip ) - Patient Data Vitals - Most Recent: Last Vital Signs Temp 36.2 C 08/29/19 06:44 Pulse 88 08/29/19 07:01 Resp 22 H 08/29/19 06:44 BP 144/82 H 08/29/19 08:47 Pulse Ox 90 L 08/29/19 06:44 Weight - Most Recent: 146.51 kg I&O - Last 24 Hours: Intake & Output 08/28/19 08/29/19 08/29/19 22:59 06:59 14:59 Intake Total 440 60 240 Output Total 750 175 650 Balance -310 -115 -410 Lab Results Last 24 Hours: Laboratory Results - last 24 hr 08/29/19 Range/Units 05:51 Sodium 139 L (140-148) mmol/L Potassium 3.7 (3.6-5.2) mmol/L Chloride 98 L (100-108) mmol/L Carbon Dioxide 33 H (21-32) mmol/L Anion Gap 11.7 (5.0-14.0) mmol/L BUN 28 H (7-18) mg/dL Creatinine 1.4 H (0.8-1.3) mg/dL Est Cr Clr Drug Dosing 50.09 mL/min Estimated GFR (MDRD) 50 L (>60) Glucose 107 H (74-106) mg/dL Calcium 9.1 (8.5-10.1) mg/dL [facility] Results Last 24 Hours: Microbiology 08/25/19 19:25 Aerobic Blood Culture - Preliminary Blood - Arm, Right NO GROWTH AFTER 3 DAYS Anaerobic Blood Culture - Preliminary NO GROWTH AFTER 3 DAYS 08/25/19 19:15 Aerobic Blood Culture - Preliminary Blood - Arm, Right NO GROWTH AFTER 3 DAYS Anaerobic Blood Culture - Preliminary NO GROWTH AFTER 3 DAYS Med Orders - Current: Current Medications Acetaminophen (Tylenol) 650 mg PO Q4H PRN PRN Reason: Pain (Mild 1-3)/fever Last Admin: 08/29/19 03:13 Dose: 650 mg Albuterol (Proventil Neb Soln) 2.5 mg NEB Q4H PRN PRN Reason: Shortness Of Breath/wheezing Albuterol/Ipratropium (Duoneb 3.0-0.5 Mg/3 Ml) 3 ml NEB QIDRT [facility] Last Admin: 08/29/19 07:00 Dose: 3 ml Bumetanide (Bumex) 2 mg IVPUSH Q12H [facility] Last Admin: 08/29/19 06:00 Dose: 2 mg Citalopram Hydrobromide (Celexa) 40 mg PO DAILY [facility] Last Admin: 08/29/19 08:48 Dose: 40 mg Clonazepam (Klonopin) 0.5 mg PO BEDTIME PRN PRN Reason: Anxiety Last Admin: 08/28/19 23:37 Dose: 0.5 mg Latanoprost (Xalatan 0.005% Ophth Soln) 0 ml EYEBOTH BEDTIME [facility] Last Admin: 08/28/19 21:08 Dose: 1 drop Levofloxacin 250 mg/ (Levofloxacin 500 mg) 750 mg PO Q24H [facility] Stop: 08/30/19 20:01 Last Admin: 08/28/19 19:15 Dose: 750 mg Lorazepam (Ativan) 0.5 mg IVPUSH Q4H PRN PRN Reason: Anxiety Losartan Potassium (Cozaar) 25 mg PO DAILY [facility] Last Admin: 08/29/19 08:47 Dose: 25 mg Melatonin (Melatonin) 6 mg PO BEDTIME [facility] Last Admin: 08/28/19 21:08 Dose: 6 mg Nicotine (Habitrol) 21 mg TRDERM DAILY [facility] Last Admin: 08/29/19 08:56 Dose: 21 mg Nicotine Polacrilex (Nicorelief) 2 mg CHEW Q1H PRN PRN Reason: Other Oxycodone HCl (Oxycodone) 5 mg PO Q4H PRN PRN Reason: Pain Last Admin: 08/29/19 08:53 Dose: 5 mg Polyethylene Glycol (Miralax) 17 gm PO DAILY PRN PRN Reason: Constipation Last Admin: 08/28/19 21:07 Dose: 17 gm Rivaroxaban (Xarelto) 20 mg PO WITHDINNER [facility] Last Admin: 08/28/19 17:55 Dose: 20 mg Sodium Chloride (Saline Flush) 10 ml FLUSH ASDIRECTED PRN PRN Reason: Keep Vein Open Last Admin: 08/29/19 08:49 Dose: 10 ml Discontinued Medications Bumetanide (Bumex) 4 mg IVPUSH ONETIME ONE Stop: 08/25/19 14:01 Last Admin: 08/25/19 13:56 Dose: 4 mg Bumetanide (Bumex) 2 mg IVPUSH ONETIME ONE Stop: 08/26/19 09:01 Last Admin: 08/26/19 09:39 Dose: 2 mg Bumetanide (Bumex) 2 mg IVPUSH ONETIME ONE Stop: 08/27/19 09:01 Last Admin: 08/27/19 08:56 Dose: 2 mg Citalopram Hydrobromide (Celexa) 20 mg PO DAILY [facility] Last Admin: 08/26/19 09:02 Dose: 20 mg Levofloxacin/Dextrose 750 mg/ (Premix) 150 mls @ 100 mls/hr IV Q24H [facility] Last Admin: 08/27/19 19:51 Dose: 100 mls/hr Metoprolol Tartrate (Lopressor) 25 mg PO BID [facility] Last Admin: 08/28/19 08:44 Dose: 25 mg Potassium Chloride (Klor-Con M20) 40 meq PO ONETIME ONE Stop: 08/26/19 09:01 Last Admin: 08/26/19 09:03 Dose: 40 meq Potassium Chloride (Klor-Con M20) 40 meq PO ONETIME ONE Stop: 08/26/19 17:01 Last Admin: 08/26/19 17:17 Dose: 40 meq Potassium Chloride (Klor-Con M20) 40 meq PO ONETIME ONE Stop: 08/27/19 08:46 Last Admin: 08/27/19 08:37 Dose: 40 meq Potassium Chloride (Klor-Con M20) 40 meq PO ONETIME ONE Stop: 08/27/19 12:01 Last Admin: 08/27/19 12:32 Dose: 40 meq Potassium Chloride (Klor-Con M20) 40 meq PO ONETIME ONE Stop: 08/27/19 17:01 Last Admin: 08/27/19 17:29 Dose: 40 meq - Exam Quality Assessment: Supplemental Oxygen General: Alert, Oriented, Cooperative, No Acute Distress Lungs: Normal Respiratory Effort GI/Abdominal Exam: Soft, No Distention Extremities: Pedal Edema. No: Increased Warmth Skin: Warm, Dry Psy/Mental Status: Alert, Normal Affect Sepsis Event Note - Evaluation Sepsis Screening Result: No Definite Risk - Focused Exam Vital Signs: Vital Signs Temp Pulse Resp BP BP Pulse Ox 08/29/19 08:47 144/82 H 08/29/19 07:01 88 08/29/19 06:44 36.2 C 113 H 22 H 144/82 H 90 L 08/29/19 03:08 36.6 C 111 H 18 134/59 L 91 L 08/28/19 23:26 36.6 C 50 L 20 128/60 96 Date Exam was Performed: 08/29/19 Time Exam was Performed: 11:20 - Problem List Review Problem List Initiated/Reviewed/Updated: Yes - My Orders Last 24 Hours: My Active Orders 08/28/19 20:00 Levofloxacin [Levaquin] 750 mg PO Q24H 08/29/19 09:07 PT Evaluation and Treatment [CONS] Routine 08/29/19 09:35 Gabapentin [Neurontin] 100 mg PO ONETIME ONE 08/29/19 21:00 Gabapentin [Neurontin] 300 mg PO BEDTIME 08/30/19 05:00 BASIC METABOLIC PANEL,BMP [CHEM] Timed - Plan Plan:: ASSESSMENT AND PLAN Acute on chronic respiratory failure-likely multifactorial with COPD as well as diastolic congestive heart failure and possibly a component of obesity hypoventilation. He has chronic CO2 retention. Does seem to be improving with the NIPPV and would benefit from ongoing use of a noninvasive ventilation unit such as a trilogy. This will help reduce the work of breathing, decrease interruption of respiratory status and reduce the risk and severity of CO2 retention. I would anticipate this will be a lifelong treatment modality. He is receiving optimal therapy for both COPD and diastolic congestive heart failure. -Continue nocturnal NIPPV, plan for discharge home with NIPPV -IV Bumex 2 mg every 12 hours RIGHT LUNG INFILTRATE-not entirely clear as to whether there is actual underlying infection. Given his very compromised respiratory status we have opted to treat for pneumonia. -Cultures pending, negative so far -Continue levofloxacin for 2 more days ANASARCA-he has a known history of chronic peripheral edema with venous stasis, significantly worse over the past few months. Echocardiogram showed diastolic dysfunction. He is improving with diuretic therapy and management as above but still has significant fluid retention. -2 g sodium diet -Diuretic therapy as above DEPRESSION AND ANXIETY-ongoing difficulty with sleep disturbance intermittent episodes of panic attack with worsening depression and suicidal ideation. Much of this seems to be situational related to his worsening health over the past 3 months. 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 Suicidal ideation seems to be related to sporadic episodes of severe anxiety and depression with panic attacks. -Dose of Citalopram increased to 40 mg daily -Lorazepam 0.5 mg IV every 4 hours as needed, consider transition to p.o. -Outpatient psychiatry consult HYPOKALEMIA-improved with supplementation. -Recheck potassium in the a.m. DIASTOLIC CONGESTIVE HEART FAILURE-slowly improving. With his LVH I think he would benefit from carvedilol more than the metoprolol tartrate. -Continue carvedilol twice daily -Diuretic therapy as above SLEEP APNEA-he has undergone a sleep study showing evidence of obstructive sleep apnea. He has been unable to get in for his CPAP titration study. -Trial of NIPPV as above -Plan for home NIPPV CORONARY ARTERY DISEASE-currently asymptomatic, denies any symptoms of chest pain or pressure. -Continue outpatient medical therapy MAINTENANCE ISSUES -DVT prophylaxis; current therapy with rivaroxaban should provide adequate DVT prophylaxis -GI prophylaxis; not indicated -Pena catheter; not indicated -Nutrition; 2 g sodium diet -Nicotine dependence; 21 mg nicotine patch DISPOSITION-anticipate discharge to home with home care after the hospital stay. Sp Garcia MD
[2019-08-29] MEDS: LORazepam 2 MG/ML SDV IVPUSH PRN ×2 (10:16→16:47)
[2019-08-29] MEDS: Rivaroxaban 10 MG Tab PO SCH (16:48)
[2019-08-29] MEDS: Gabapentin 300 MG Cap PO SCH (20:13)
[2019-08-29] MEDS: Melatonin 3 MG Tab PO SCH (20:13)
[2019-08-29] MEDS: Latanoprost 0.005% Ophth Soln 2.5 ML Bottle EYEBOTH SCH (20:14)
[2019-08-29] MEDS: Magnesium Hydroxide 400 MG/5 ML Susp 30 ML Cup PO PRN (21:35)
[2019-08-29] MEDS: ClonazePAM 0.5 MG Tab PO PRN (22:53)
[2019-08-30] MEDS: Bumetanide 2.5 MG/10 ML MDV IVPUSH SCH (06:09)
[2019-08-30] MEDS: oxyCODONE 5 MG Tab PO PRN ×3 (07:22→22:35)
[2019-08-30] MEDS: Albuterol/Ipratropium 3.0-0.5 MG/3 ML Neb Soln NEB SCH ×4 (07:37→20:58)
[2019-08-30] MEDS: Losartan 25 MG Tab PO SCH (08:47)
[2019-08-30] MEDS: Citalopram 20 MG Tab PO SCH (08:47)
[2019-08-30] MEDS: Nicotine 21 MG/24 Hr Patch TRDERM SCH (08:48)
--- NOTE | 2019-08-30 10:11 | PCM.PN ---
- General Info Date of Service: 08/30/19 Subjective Update: No acute events overnight but patient did again have trouble with urinary frequency as well as pain in the right lower back and into the right buttocks and right thigh. He did have a bowel movement last night. He continues to require supplemental oxygen. Lower extremity edema and anasarca slightly better again today. Creatinine is slightly higher today than it was yesterday. Patient did sleep a little better last night than the night before. Only able to use his noninvasive ventilation for short periods of time because of the urinary frequency and leg pain. Functional Status: Reports: Tolerating Diet. Denies: Pain Controlled - Review of Systems General: Reports: Weakness. Denies: Fever Pulmonary: Reports: Shortness of Breath Musculoskeletal: Reports: Leg Pain - Patient Data Vitals - Most Recent: Last Vital Signs Temp 36.8 C 08/30/19 08:58 Pulse 119 H 08/30/19 08:58 Resp 18 08/30/19 08:58 BP 142/75 H 08/30/19 08:58 Pulse Ox 89 L 08/30/19 08:58 Weight - Most Recent: 144.696 kg I&O - Last 24 Hours: Intake & Output 08/29/19 08/30/19 08/30/19 22:59 06:59 14:59 Intake Total 300 Output Total 1350 450 100 Balance -1050 -450 -100 Lab Results Last 24 Hours: Laboratory Results - last 24 hr 08/30/19 Range/Units 05:15 Sodium 140 (140-148) mmol/L Potassium 3.8 (3.6-5.2) mmol/L Chloride 99 L (100-108) mmol/L Carbon Dioxide 36 H (21-32) mmol/L Anion Gap 8.8 (5.0-14.0) mmol/L BUN 33 H (7-18) mg/dL Creatinine 1.7 H (0.8-1.3) mg/dL Est Cr Clr Drug Dosing 41.25 mL/min Estimated GFR (MDRD) 40 L (>60) Glucose 99 (74-106) mg/dL Calcium 9.1 (8.5-10.1) mg/dL [place] Results Last 24 Hours: Microbiology 08/25/19 19:15 Aerobic Blood Culture - Preliminary Blood - Arm, Right NO GROWTH AFTER 4 DAYS Anaerobic Blood Culture - Preliminary NO GROWTH AFTER 4 DAYS 08/25/19 19:25 Aerobic Blood Culture - Preliminary Blood - Arm, Right NO GROWTH AFTER 4 DAYS Anaerobic Blood Culture - Preliminary NO GROWTH AFTER 4 DAYS Med Orders - Current: Current Medications Acetaminophen (Tylenol) 650 mg PO Q4H PRN PRN Reason: Pain (Mild 1-3)/fever Last Admin: 08/29/19 03:13 Dose: 650 mg Albuterol (Proventil Neb Soln) 2.5 mg NEB Q4H PRN PRN Reason: Shortness Of Breath/wheezing Albuterol/Ipratropium (Duoneb 3.0-0.5 Mg/3 Ml) 3 ml NEB QIDRT [facility] Last Admin: 08/30/19 07:37 Dose: 3 ml Citalopram Hydrobromide (Celexa) 40 mg PO DAILY [facility] Last Admin: 08/30/19 08:47 Dose: 40 mg Clonazepam (Klonopin) 0.5 mg PO BEDTIME PRN PRN Reason: Anxiety Last Admin: 08/29/19 22:53 Dose: 0.5 mg Gabapentin (Neurontin) 300 mg PO BEDTIME [facility] Last Admin: 08/29/19 20:13 Dose: 300 mg Latanoprost (Xalatan 0.005% Ophth Soln) 0 ml EYEBOTH BEDTIME [facility] Last Admin: 08/29/19 20:14 Dose: 1 drop Lorazepam (Ativan) 0.5 mg IVPUSH Q4H PRN PRN Reason: Anxiety Last Admin: 08/29/19 16:47 Dose: 0.5 mg Losartan Potassium (Cozaar) 25 mg PO DAILY [facility] Last Admin: 08/30/19 08:47 Dose: 25 mg Magnesium Hydroxide (Milk Of Magnesia) 30 ml PO Q4H PRN PRN Reason: Constipation Last Admin: 08/29/19 21:35 Dose: 30 ml Melatonin (Melatonin) 6 mg PO BEDTIME [facility] Last Admin: 08/29/19 20:13 Dose: 6 mg Nicotine (Habitrol) 21 mg TRDERM DAILY [facility] Last Admin: 08/30/19 08:48 Dose: 21 mg Nicotine Polacrilex (Nicorelief) 2 mg CHEW Q1H PRN PRN Reason: Other Oxycodone HCl (Oxycodone) 5 mg PO Q4H PRN PRN Reason: Pain Last Admin: 08/30/19 07:22 Dose: 5 mg Polyethylene Glycol (Miralax) 17 gm PO DAILY PRN PRN Reason: Constipation Last Admin: 08/28/19 21:07 Dose: 17 gm Rivaroxaban (Xarelto) 20 mg PO WITHDINNER [facility] Last Admin: 08/29/19 16:48 Dose: 20 mg Sodium Chloride (Saline Flush) 10 ml FLUSH ASDIRECTED PRN PRN Reason: Keep Vein Open Last Admin: 08/29/19 08:49 Dose: 10 ml Tamsulosin HCl (Flomax) 0.4 mg PO PCBREAKFAST [facility] Tamsulosin HCl (Flomax) 0.4 mg PO ONETIME ONE Stop: 08/30/19 10:10 Discontinued Medications Bumetanide (Bumex) 4 mg IVPUSH ONETIME ONE Stop: 08/25/19 14:01 Last Admin: 08/25/19 13:56 Dose: 4 mg Bumetanide (Bumex) 2 mg IVPUSH ONETIME ONE Stop: 08/26/19 09:01 Last Admin: 08/26/19 09:39 Dose: 2 mg Bumetanide (Bumex) 2 mg IVPUSH Q12H [facility] Last Admin: 08/30/19 06:09 Dose: 2 mg Bumetanide (Bumex) 2 mg IVPUSH ONETIME ONE Stop: 08/27/19 09:01 Last Admin: 08/27/19 08:56 Dose: 2 mg Citalopram Hydrobromide (Celexa) 20 mg PO DAILY [facility] Last Admin: 08/26/19 09:02 Dose: 20 mg Gabapentin (Neurontin) 100 mg PO ONETIME ONE Stop: 08/29/19 09:36 Last Admin: 08/29/19 10:16 Dose: 100 mg Levofloxacin/Dextrose 750 mg/ (Premix) 150 mls @ 100 mls/hr IV Q24H [facility] Last Admin: 08/27/19 19:51 Dose: 100 mls/hr Levofloxacin 250 mg/ (Levofloxacin 500 mg) 750 mg PO Q24H [facility] Stop: 08/30/19 20:01 Last Admin: 08/29/19 20:13 Dose: 750 mg Metoprolol Tartrate (Lopressor) 25 mg PO BID [facility] Last Admin: 08/28/19 08:44 Dose: 25 mg Potassium Chloride (Klor-Con M20) 40 meq PO ONETIME ONE Stop: 08/26/19 09:01 Last Admin: 08/26/19 09:03 Dose: 40 meq Potassium Chloride (Klor-Con M20) 40 meq PO ONETIME ONE Stop: 08/26/19 17:01 Last Admin: 08/26/19 17:17 Dose: 40 meq Potassium Chloride (Klor-Con M20) 40 meq PO ONETIME ONE Stop: 08/27/19 08:46 Last Admin: 08/27/19 08:37 Dose: 40 meq Potassium Chloride (Klor-Con M20) 40 meq PO ONETIME ONE Stop: 08/27/19 12:01 Last Admin: 08/27/19 12:32 Dose: 40 meq Potassium Chloride (Klor-Con M20) 40 meq PO ONETIME ONE Stop: 08/27/19 17:01 Last Admin: 08/27/19 17:29 Dose: 40 meq - Exam Quality Assessment: Supplemental Oxygen General: Alert, Oriented, Cooperative, No Acute Distress Lungs: Normal Respiratory Effort Cardiovascular: Regular Rate, Regular Rhythm GI/Abdominal Exam: Soft, No Distention Back Exam: Other (ttp right lateral buttocks). No: Full Range of Motion, Vertebral Tenderness Extremities: Pedal Edema. No: Increased Warmth Skin: Warm, Dry, Ecchymosis (bilateral lower back ) Psy/Mental Status: Alert, Normal Affect Sepsis Event Note - Evaluation Sepsis Screening Result: No Definite Risk - Focused Exam Vital Signs: Vital Signs Temp Pulse Resp BP BP Pulse Ox Pulse Ox 08/30/19 08:58 36.8 C 119 H 18 142/75 H 89 L 08/30/19 08:47 142/75 H 08/30/19 07:38 125 H 90 L 08/30/19 03:11 18 08/29/19 22:52 37.2 C 67 20 114/44 L 90 L Date Exam was Performed: 08/30/19 Time Exam was Performed: 12:47 - Problem List & Annotations (1) Chronic respiratory failure with hypercapnia Status: Acute Current Visit: Yes - Problem List Review Problem List Initiated/Reviewed/Updated: Yes - My Orders Last 24 Hours: My Active Orders 08/29/19 21:00 Gabapentin [Neurontin] 300 mg PO BEDTIME 08/29/19 21:21 Magnesium Hydroxide [Milk of Magnesia] 30 ml PO Q4H PRN 08/30/19 08:43 OT Evaluation and Treatment [CONS] Routine 08/30/19 09:54 Lumbar Spine wo Cont [CT] Routine Pelvis wo Cont [CT] Routine 08/30/19 10:09 LORazepam [Ativan] 0.5 mg PO Q4H PRN Tamsulosin [Flomax] 0.4 mg PO ONETIME ONE 08/31/19 05:00 BASIC METABOLIC PANEL,BMP [CHEM] Timed CBC W/O DIFF,HEMOGRAM [HEME] Timed (1) 08/31/19 09:00 Tamsulosin [Flomax] 0.4 mg PO PCBREAKFAST - Plan Plan:: ASSESSMENT AND PLAN Acute on chronic respiratory failure-likely multifactorial with COPD as well as diastolic congestive heart failure and possibly a component of obesity hypoventilation. He has chronic CO2 retention and the use of BiPAP in the hospital did not provide significant benefit. Does seem to be improving with the NIPPV and will require ongoing use of a noninvasive ventilation unit such as a trilogy after hospital discharge . This will help reduce the work of breathing, decrease interruption of respiratory status and reduce the risk and severity of CO2 retention. I would anticipate this will be a lifelong treatment modality. He is receiving optimal therapy for both COPD and diastolic congestive heart failure. -Continue nocturnal NIPPV, plan for discharge home with noninvasive ventilation/ trilogy -Hold diuresis today BPH with URINARY RETENTION-patient with increased urinary frequency. CT scan today did show distended bladder as well as some hydronephrosis likely secondary to BPH and obstruction. -Trial of tamsulosin -Insert Pena catheter RIGHT LUNG INFILTRATE-not entirely clear as to whether there is actual underlying infection. Given his very compromised respiratory status we have opted to treat for pneumonia. -Discontinue antibiotics ANASARCA-he has a known history of chronic peripheral edema with venous stasis, significantly worse over the past few months. Echocardiogram showed diastolic dysfunction. He is improving with diuretic therapy and management as above but still has significant fluid retention. Creatinine slightly higher today so diuresis will be slowed. -2 g sodium diet -Diuretic therapy as above STAGE III CHRONIC KIDNEY DISEASE-slight worsening of creatinine today with diuresis. Possibly contribution from his hydronephrosis. Plan to hold off on diuresis today and reassess tomorrow. -Repeat labs in the morning DEPRESSION AND ANXIETY-ongoing difficulty with sleep disturbance intermittent episodes of panic attack with worsening depression and suicidal ideation. Much of this seems to be situational related to his worsening health over the past 3 months. 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 Suicidal ideation seems to be related to sporadic episodes of severe anxiety and depression with panic attacks. -Dose of Citalopram increased to 40 mg daily -Lorazepam 0.5 mg as needed -Outpatient psychiatry consult HYPOKALEMIA-improved with supplementation. -Recheck potassium in the a.m. DIASTOLIC CONGESTIVE HEART FAILURE-slowly improving. he has been transitioned to carvedilol from short acting metoprolol. -Continue carvedilol twice daily -Diuretic therapy as above SLEEP APNEA-he has undergone a sleep study showing evidence of obstructive sleep apnea. He has been unable to get in for his CPAP titration study. -Trial of NIPPV as above -Plan for home NIPPV CORONARY ARTERY DISEASE-currently asymptomatic, denies any symptoms of chest pain or pressure. -Continue outpatient medical therapy TOBACCO DEPENDENCE-patient will need ongoing discussions about the importance of tobacco cessation. Currently using a nicotine patch. MAINTENANCE ISSUES -DVT prophylaxis; current therapy with rivaroxaban should provide adequate DVT prophylaxis -GI prophylaxis; not indicated -Pena catheter; not indicated -Nutrition; 2 g sodium diet DISPOSITION-anticipate discharge to home with home care after the hospital stay. Sp Garcia MD
[2019-08-30] MEDS ORDERED: Tamsulosin 0.4 MG Cap.ER PO ONE (10:30)
--- NOTE | 2019-08-30 11:13 | CRLCT ---
INDICATION: Low back pain radiating down the right leg after fall. COMPARISON: None. TECHNIQUE: Multi detector imaging of the bony pelvis with axial, coronal and sagittal reformats. FINDINGS: Body habitus limits image quality. Large distended urinary bladder. No appreciable wall thickening. Prostate size does not appear particularly enlarged. Prominent atherosclerosis of aorta and iliacs. Moderate atherosclerosis of femoral arteries. Degenerative disk height loss and mild anterolisthesis and minor leftward listhesis at L4-5. Disc mineralization L5-S1. Relatively minor degenerative facet arthrosis throughout the visualized lumbosacral facets. Sacroiliac joints are symmetric with mild subarticular sclerosis and spurring bilaterally. No acute pelvic fracture. Changes from prior now removed intramedullary nail in left femur. No acute femoral fracture or hip fracture. Presumed synovial herniation pit lucency posterior right small neck. IMPRESSION: 1. No acute bone findings. 2. Distended urinary bladder. Although this could be prominent physiologic distention, clinical correlation for neurogenic change or outlet obstruction recommended. 3. Degenerative disc and facet changes in the visualized lumbosacral spine as described. Minor listhesis L4-5. 4. Mild osteoarthritis sacroiliac joints. Please note that all CT scans at this facility use dose modulation, iterative reconstruction, and/or weight-based dosing when appropriate to reduce radiation dose to as low as reasonably achievable. Dictated by Leo Maradiaga MD @ Aug 30 2019 11:10AM Signed by Dr. Leo Maradiaga @ Aug 30 2019 11:10AM
--- NOTE | 2019-08-30 11:48 | CRLCT ---
Indication: Fall, low back pain with radiating down right leg. Technique: CT lumbar spine without IV contrast. Coronal and sagittal reconstructions. Comparison: None. Findings: There are 5 lumbar-type vertebral bodies. No acute fracture or traumatic malalignment of the lumbar spine. Mild retrolisthesis of L1 on L2 and L2 on L3. Mild anterolisthesis of L4 on L5. Vertebral body heights are well maintained. Spondylotic changes in lumbar spine including hypertrophic spurring, lower lumbar facet arthropathy, and disc space narrowing throughout. Mild broad-based disc bulge at L4-L5 which causes mild spinal canal stenosis in combination with facet arthropathy. No significant neural foraminal narrowing. Mild subcutaneous edema in the midline lower back. Nonspecific thickening of the adrenal glands bilaterally. Right renal atrophy. Multiple small nonobstructing right renal caliceal stones. Left hydroureteronephrosis. No obstructing stone is identified. The urinary bladder is moderately distended. Mildly enlarged prostate. Aortoiliac vascular calcifications. Few prominent left periaortic lymph nodes (for example series 4, image 64). Impression: 1. No acute fracture or traumatic malalignment of the lumbar spine. 2. Spondylotic changes of the lumbar spine, including a broad-based disc bulge at L4-5 which causes mild spinal canal stenosis. 3. Left hydroureteronephrosis without obstructing stone identified. 4. Moderately distended urinary bladder. 5. Few prominent left periaortic lymph nodes are indeterminate. Please note that all CT scans at this facility use dose modulation, iterative reconstruction, and/or weight-based dosing when appropriate to reduce radiation dose to as low as reasonably achievable. Dictated by Vivi Toure MD @ Aug 30 2019 11:34AM Signed by Dr. Vivi Toure @ Aug 30 2019 11:45AM
[2019-08-30] MEDS: Rivaroxaban 10 MG Tab PO SCH (17:32)
[2019-08-30] MEDS: Melatonin 3 MG Tab PO SCH (20:54)
[2019-08-30] MEDS: Latanoprost 0.005% Ophth Soln 2.5 ML Bottle EYEBOTH SCH (20:55)
[2019-08-30] MEDS: Gabapentin 300 MG Cap PO SCH (20:55)
[2019-08-30] MEDS: Acetaminophen 325 MG Tab PO PRN (20:57)
[2019-08-31] MEDS: Albuterol/Ipratropium 3.0-0.5 MG/3 ML Neb Soln NEB SCH ×4 (07:01→21:15)
[2019-08-31] MEDS: Citalopram 20 MG Tab PO SCH (08:16)
[2019-08-31] MEDS: Tamsulosin 0.4 MG Cap.ER PO SCH (08:19)
[2019-08-31] MEDS: Nicotine 21 MG/24 Hr Patch TRDERM SCH (08:19)
[2019-08-31] MEDS: oxyCODONE 5 MG Tab PO PRN ×3 (08:20→18:25)
[2019-08-31] MEDS ORDERED: Apixaban 5 MG Tab PO SCH (09:00)
[2019-08-31] MEDS ORDERED: Potassium Chloride 20 MEQ Tab.ER PO ONE (09:30)
--- NOTE | 2019-08-31 09:51 | PCM.PN ---
- General Info Date of Service: 08/31/19 Functional Status: Reports: Tolerating Diet. Denies: Pain Controlled - Review of Systems General: Reports: Weakness Pulmonary: Denies: Shortness of Breath Musculoskeletal: Reports: Leg Pain - Patient Data Vitals - Most Recent: Last Vital Signs Temp 36.0 C 08/31/19 07:07 Pulse 86 08/31/19 08:18 Resp 20 08/31/19 08:18 BP 100/70 08/31/19 08:18 Pulse Ox 90 L 08/31/19 08:18 Weight - Most Recent: 143.834 kg I&O - Last 24 Hours: Intake & Output 08/30/19 08/31/19 08/31/19 22:59 06:59 14:59 Intake Total 540 600 Output Total 450 550 350 Balance 90 50 -350 Lab Results Last 24 Hours: Laboratory Results - last 24 hr 08/31/19 08/31/19 Range/Units 04:49 04:49 WBC 9.8 (4.5-11.0) K/uL RBC 4.18 L (4.30-5.90) M/uL Hgb 11.0 L (12.0-15.0) g/dL Hct 37.8 L (40.0-54.0) % MCV 90 (80-98) fL MCH 26 L (27-31) pg MCHC 29 L (32-36) % Plt Count 180 (150-400) K/uL Sodium 139 L (140-148) mmol/L Potassium 3.4 L (3.6-5.2) mmol/L Chloride 98 L (100-108) mmol/L Carbon Dioxide 34 H (21-32) mmol/L Anion Gap 10.4 (5.0-14.0) mmol/L BUN 39 H (7-18) mg/dL Creatinine 1.9 H (0.8-1.3) mg/dL Est Cr Clr Drug Dosing 36.91 mL/min Estimated GFR (MDRD) 35 L (>60) Glucose 108 H (74-106) mg/dL Calcium 9.1 (8.5-10.1) mg/dL [place] Results Last 24 Hours: Microbiology 08/25/19 19:15 Aerobic Blood Culture - Final Blood - Arm, Right NO GROWTH AFTER 5 DAYS Anaerobic Blood Culture - Final NO GROWTH AFTER 5 DAYS 08/25/19 19:25 Aerobic Blood Culture - Final Blood - Arm, Right NO GROWTH AFTER 5 DAYS Anaerobic Blood Culture - Final NO GROWTH AFTER 5 DAYS Med Orders - Current: Current Medications Acetaminophen (Tylenol) 650 mg PO Q4H PRN PRN Reason: Pain (Mild 1-3)/fever Last Admin: 08/30/19 20:57 Dose: 650 mg Albuterol (Proventil Neb Soln) 2.5 mg NEB Q4H PRN PRN Reason: Shortness Of Breath/wheezing Albuterol/Ipratropium (Duoneb 3.0-0.5 Mg/3 Ml) 3 ml NEB QIDRT [facility] Last Admin: 08/31/19 07:01 Dose: 3 ml Citalopram Hydrobromide (Celexa) 40 mg PO DAILY [facility] Last Admin: 08/31/19 08:16 Dose: 40 mg Clonazepam (Klonopin) 0.5 mg PO BEDTIME PRN PRN Reason: Anxiety Last Admin: 08/29/19 22:53 Dose: 0.5 mg Gabapentin (Neurontin) 300 mg PO BEDTIME [facility] Last Admin: 08/30/19 20:55 Dose: 300 mg Latanoprost (Xalatan 0.005% Ophth Soln) 0 ml EYEBOTH BEDTIME [facility] Last Admin: 08/30/19 20:55 Dose: 1 drop Lorazepam (Ativan) 0.5 mg IVPUSH Q4H PRN PRN Reason: Severe anxiety Last Admin: 08/29/19 16:47 Dose: 0.5 mg Lorazepam (Ativan) 0.5 mg PO Q4H PRN PRN Reason: Mild to Moderate anxiety Losartan Potassium (Cozaar) 25 mg PO DAILY [facility] Last Admin: 08/30/19 08:47 Dose: 25 mg Magnesium Hydroxide (Milk Of Magnesia) 30 ml PO Q4H PRN PRN Reason: Constipation Last Admin: 08/29/19 21:35 Dose: 30 ml Melatonin (Melatonin) 6 mg PO BEDTIME [facility] Last Admin: 08/30/19 20:54 Dose: 6 mg Nicotine (Habitrol) 21 mg TRDERM DAILY [facility] Last Admin: 08/31/19 08:19 Dose: 21 mg Nicotine Polacrilex (Nicorelief) 2 mg CHEW Q1H PRN PRN Reason: Other Oxycodone HCl (Oxycodone) 5 mg PO Q4H PRN PRN Reason: Pain Last Admin: 08/31/19 08:20 Dose: 5 mg Polyethylene Glycol (Miralax) 17 gm PO DAILY PRN PRN Reason: Constipation Last Admin: 08/28/19 21:07 Dose: 17 gm Sodium Chloride (Saline Flush) 10 ml FLUSH ASDIRECTED PRN PRN Reason: Keep Vein Open Last Admin: 08/29/19 08:49 Dose: 10 ml Tamsulosin HCl (Flomax) 0.4 mg PO PCBREAKFAST [facility] Last Admin: 08/31/19 08:19 Dose: 0.4 mg Discontinued Medications Apixaban (Eliquis) 5 mg PO BID [facility] Bumetanide (Bumex) 4 mg IVPUSH ONETIME ONE Stop: 08/25/19 14:01 Last Admin: 08/25/19 13:56 Dose: 4 mg Bumetanide (Bumex) 2 mg IVPUSH ONETIME ONE Stop: 08/26/19 09:01 Last Admin: 08/26/19 09:39 Dose: 2 mg Bumetanide (Bumex) 2 mg IVPUSH Q12H [facility] Last Admin: 08/30/19 06:09 Dose: 2 mg Bumetanide (Bumex) 2 mg IVPUSH ONETIME ONE Stop: 08/27/19 09:01 Last Admin: 08/27/19 08:56 Dose: 2 mg Citalopram Hydrobromide (Celexa) 20 mg PO DAILY [facility] Last Admin: 08/26/19 09:02 Dose: 20 mg Gabapentin (Neurontin) 100 mg PO ONETIME ONE Stop: 08/29/19 09:36 Last Admin: 08/29/19 10:16 Dose: 100 mg Levofloxacin/Dextrose 750 mg/ (Premix) 150 mls @ 100 mls/hr IV Q24H [facility] Last Admin: 08/27/19 19:51 Dose: 100 mls/hr Levofloxacin 250 mg/ (Levofloxacin 500 mg) 750 mg PO Q24H [facility] Stop: 08/30/19 20:01 Last Admin: 08/29/19 20:13 Dose: 750 mg Metoprolol Tartrate (Lopressor) 25 mg PO BID [facility] Last Admin: 08/28/19 08:44 Dose: 25 mg Potassium Chloride (Klor-Con M20) 40 meq PO ONETIME ONE Stop: 08/26/19 09:01 Last Admin: 08/26/19 09:03 Dose: 40 meq Potassium Chloride (Klor-Con M20) 40 meq PO ONETIME ONE Stop: 08/26/19 17:01 Last Admin: 08/26/19 17:17 Dose: 40 meq Potassium Chloride (Klor-Con M20) 40 meq PO ONETIME ONE Stop: 08/27/19 08:46 Last Admin: 08/27/19 08:37 Dose: 40 meq Potassium Chloride (Klor-Con M20) 40 meq PO ONETIME ONE Stop: 08/27/19 12:01 Last Admin: 08/27/19 12:32 Dose: 40 meq Potassium Chloride (Klor-Con M20) 40 meq PO ONETIME ONE Stop: 08/27/19 17:01 Last Admin: 08/27/19 17:29 Dose: 40 meq Potassium Chloride (Klor-Con M20) 40 meq PO ONETIME ONE Stop: 08/31/19 09:31 Last Admin: 08/31/19 09:19 Dose: 40 meq Rivaroxaban (Xarelto) 20 mg PO WITHDINNER [facility] Last Admin: 08/30/19 17:32 Dose: 20 mg Tamsulosin HCl (Flomax) 0.4 mg PO ONETIME ONE Stop: 08/30/19 10:31 Last Admin: 08/30/19 11:05 Dose: 0.4 mg - Exam Quality Assessment: Supplemental Oxygen General: Alert, Oriented, Cooperative, No Acute Distress Lungs: Normal Respiratory Effort. No: Wheezing Cardiovascular: Regular Rate, Regular Rhythm GI/Abdominal Exam: Soft, No Distention Extremities: Pedal Edema. No: Increased Warmth Skin: Warm, Dry Psy/Mental Status: Alert, Normal Affect Sepsis Event Note - Evaluation Sepsis Screening Result: No Definite Risk - Focused Exam Vital Signs: Vital Signs Temp Pulse Resp BP Pulse Ox 08/31/19 08:18 86 20 100/70 90 L 08/31/19 07:07 36.0 C 60 16 86/67 L 97 08/31/19 07:01 88 08/31/19 03:00 35.0 C L 84 18 100/60 88 L 08/30/19 22:37 36.3 C 87 18 102/62 89 L Date Exam was Performed: 08/31/19 Time Exam was Performed: 11:28 - Problem List & Annotations (1) Chronic respiratory failure with hypercapnia Status: Acute Current Visit: Yes - Problem List Review Problem List Initiated/Reviewed/Updated: Yes - My Orders Last 24 Hours: My Active Orders 08/30/19 10:09 LORazepam [Ativan] 0.5 mg PO Q4H PRN 08/30/19 12:02 Urinary Catheter Assessment [RC] Q12H 08/30/19 12:15 Insert Pena Catheter [Insert Urinary Catheter] [OM.PC] Q24H 08/31/19 09:00 UA W/MICROSCOPIC [URIN] Routine Tamsulosin [Flomax] 0.4 mg PO PCBREAKFAST 09/01/19 05:00 BASIC METABOLIC PANEL,BMP [CHEM] Timed - Plan Plan:: ASSESSMENT AND PLAN Acute on chronic respiratory failure-likely multifactorial with COPD as well as diastolic congestive heart failure and possibly a component of obesity hypoventilation. He has chronic CO2 retention and the use of BiPAP in the hospital did not provide significant benefit. Does seem to be improving with the NIPPV and will require ongoing use of a noninvasive ventilator such as a trilogy after hospital discharge . This will help reduce the work of breathing , decrease interruption of respiratory status, reduce the risk and severity of CO2 retention and reduce risk of readmission because of the severity of his chronic respiratory failure. I would anticipate this will be a lifelong treatment modality. He is receiving optimal therapy for both COPD and diastolic congestive heart failure. -Continue nocturnal NIPPV, plan for discharge home with noninvasive ventilator/ trilogy -Hold diuresis today BPH with URINARY RETENTION-patient with increased urinary frequency. CT scan yesterday did show distended bladder as well as some hydronephrosis likely secondary to BPH and obstruction. -Trial of tamsulosin -Continue Pena catheter, reassess tomorrow RIGHT LUNG INFILTRATE-not entirely clear as to whether there is actual underlying infection. He has completed adequate antibiotic therapy. -Discontinue antibiotics ANASARCA-he has a known history of chronic peripheral edema with venous stasis, significantly worse over the past few months. Echocardiogram showed diastolic dysfunction. Slowly improving but rising creatinine and hypotension are limiting diuresis. - regular diet -Diuretic therapy as above STAGE III CHRONIC KIDNEY DISEASE-slight worsening of creatinine again. Today with diuresis. Possibly contribution from his hydronephrosis. Plan to hold off on diuresis today and reassess tomorrow. -Repeat labs in the morning DEPRESSION AND ANXIETY-ongoing difficulty with sleep disturbance intermittent episodes of panic attack with worsening depression and suicidal ideation. Much of this seems to be situational related to his worsening health over the past 3 months. 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 Suicidal ideation seems to be related to sporadic episodes of severe anxiety and depression with panic attacks. -Dose of Citalopram increased to 40 mg daily -Lorazepam 0.5 mg as needed -Outpatient psychiatry consult HYPOKALEMIA-potassium level little low again today and will require supplementation. -KCL 40 meq POx1 -Recheck potassium in the a.m. RIGHT LUMBAR RADICULOPATHY-steady increase in pain over the past few days, likely secondary to fall at home. Not much improvement with gabapentin. -Continue pain control -Consider epidural steroid injections -Consider trial of dexamethasone DIASTOLIC CONGESTIVE HEART FAILURE-slowly improving. He has been transitioned to carvedilol from short acting metoprolol. -Continue carvedilol twice daily -Diuretic therapy as above SLEEP APNEA-he has undergone a sleep study showing evidence of obstructive sleep apnea. He has been unable to get in for his CPAP titration study. -Trial of NIPPV as above -Plan for home NIPPV CORONARY ARTERY DISEASE-currently asymptomatic, denies any symptoms of chest pain or pressure. -Continue outpatient medical therapy TOBACCO DEPENDENCE-patient will need ongoing discussions about the importance of tobacco cessation. Currently using a nicotine patch. MAINTENANCE ISSUES -DVT prophylaxis; holding pharmacological prophylaxis secondary to hematuria -GI prophylaxis; not indicated -Pena catheter; not indicated -Nutrition; regular DISPOSITION-anticipate discharge to home with home care after the hospital stay. pS Garcia MD
[2019-08-31] MEDS ORDERED: Dexamethasone 4 MG Tab PO ONE (16:30)
[2019-08-31] MEDS: Melatonin 3 MG Tab PO SCH (21:16)
[2019-08-31] MEDS: Gabapentin 300 MG Cap PO SCH (21:16)
[2019-08-31] MEDS: Latanoprost 0.005% Ophth Soln 2.5 ML Bottle EYEBOTH SCH (21:17)
[2019-09-01] MEDS: oxyCODONE 5 MG Tab PO PRN (05:41)
[2019-09-01] MEDS: Polyethylene Glycol 3350 Powder 17 GM Packet PO PRN (05:50)
[2019-09-01] MEDS: Albuterol/Ipratropium 3.0-0.5 MG/3 ML Neb Soln NEB SCH ×4 (07:01→21:12)
[2019-09-01] MEDS: Dexamethasone 4 MG Tab PO SCH ×2 (08:39→21:10)
[2019-09-01] MEDS: Citalopram 20 MG Tab PO SCH (08:39)
[2019-09-01] MEDS: Nicotine 21 MG/24 Hr Patch TRDERM SCH (08:39)
[2019-09-01] MEDS: Tamsulosin 0.4 MG Cap.ER PO SCH (08:39)
[2019-09-01] MEDS ORDERED: Bumetanide 1 MG/4 ML MDV IVPUSH ONE (09:30)
--- NOTE | 2019-09-01 10:53 | PCM.PN ---
- General Info Date of Service: 09/01/19 Subjective Update: There were no acute events overnight. Patient continues to experience mild pain in the right hip and thigh area at rest but has severe pain anytime he tries to stand up. He is able to ambulate only 30 feet or so before he has significant pain and dyspnea. He has not had any fevers. Weight is down a couple pounds again today. Kidney function is slightly better. Blood pressures are better today. Functional Status: Reports: Tolerating Diet. Denies: Pain Controlled - Review of Systems General: Reports: Weakness. Denies: Fever Cardiovascular: Reports: Dyspnea on Exertion Musculoskeletal: Reports: Leg Pain - Patient Data Vitals - Most Recent: Last Vital Signs Temp 36.7 C 09/01/19 07:00 Pulse 103 H 09/01/19 07:02 Resp 18 09/01/19 07:00 BP 116/68 09/01/19 07:00 Pulse Ox 92 L 09/01/19 09:00 Weight - Most Recent: 143.834 kg I&O - Last 24 Hours: Intake & Output 08/31/19 09/01/19 09/01/19 22:59 06:59 14:59 Intake Total 1400 560 Output Total 750 1175 400 Balance 650 -615 -400 Lab Results Last 24 Hours: Laboratory Results - last 24 hr 08/31/19 09/01/19 Range/Units 12:28 04:24 Sodium 138 L (140-148) mmol/L Potassium 4.4 (3.6-5.2) mmol/L Chloride 99 L (100-108) mmol/L Carbon Dioxide 32 (21-32) mmol/L Anion Gap 11.4 (5.0-14.0) mmol/L BUN 37 H (7-18) mg/dL Creatinine 1.6 H (0.8-1.3) mg/dL Est Cr Clr Drug Dosing 43.83 mL/min Estimated GFR (MDRD) 43 L (>60) Glucose 137 H (74-106) mg/dL Calcium 9.1 (8.5-10.1) mg/dL Urine Color Brown A (YELLOW) Urine Appearance Turbid A (CLEAR) Urine pH 5.5 (5.0-8.0) Ur Specific [place] 1.020 (1.008-1.030) Urine Protein 30 H (NEGATIVE) mg/dL Urine Glucose (UA) Negative (NEGATIVE) mg/dL Urine Ketones Negative (NEGATIVE) mg/dL Urine Occult Blood Large H (NEGATIVE) Urine Nitrite Negative (NEGATIVE) Urine Bilirubin Negative (NEGATIVE) Urine Urobilinogen 1.0 (0.2-1.0) EU/dL Ur Leukocyte Esterase Trace H (NEGATIVE) Urine RBC 75-100 H (0-5) Urine WBC 5-10 H (0-5) Ur Epithelial Cells Not seen Amorphous Sediment Many Urine Bacteria Moderate Urine Mucus Not seen Urine Other See note Med Orders - Current: Current Medications Acetaminophen (Tylenol) 650 mg PO Q4H PRN PRN Reason: Pain (Mild 1-3)/fever Last Admin: 08/30/19 20:57 Dose: 650 mg Albuterol (Proventil Neb Soln) 2.5 mg NEB Q4H PRN PRN Reason: Shortness Of Breath/wheezing Albuterol/Ipratropium (Duoneb 3.0-0.5 Mg/3 Ml) 3 ml NEB QIDRT [facility] Last Admin: 09/01/19 07:01 Dose: 3 ml Citalopram Hydrobromide (Celexa) 40 mg PO DAILY [facility] Last Admin: 09/01/19 08:39 Dose: 40 mg Clonazepam (Klonopin) 0.5 mg PO BEDTIME PRN PRN Reason: Anxiety Last Admin: 08/29/19 22:53 Dose: 0.5 mg Dexamethasone (Dexamethasone) 4 mg PO BID [facility] Last Admin: 09/01/19 08:39 Dose: 4 mg Gabapentin (Neurontin) 300 mg PO BEDTIME [facility] Last Admin: 08/31/19 21:16 Dose: 300 mg Hydromorphone HCl (Dilaudid) 2 - 4 mg PO Q3H PRN PRN Reason: Pain Latanoprost (Xalatan 0.005% Ophth Soln) 0 ml EYEBOTH BEDTIME [facility] Last Admin: 08/31/19 21:17 Dose: 1 drop Lorazepam (Ativan) 0.5 mg IVPUSH Q4H PRN PRN Reason: Severe anxiety Last Admin: 08/29/19 16:47 Dose: 0.5 mg Lorazepam (Ativan) 0.5 mg PO Q4H PRN PRN Reason: Mild to Moderate anxiety Losartan Potassium (Cozaar) 25 mg PO DAILY [facility] Last Admin: 08/30/19 08:47 Dose: 25 mg Magnesium Hydroxide (Milk Of Magnesia) 30 ml PO Q4H PRN PRN Reason: Constipation Last Admin: 08/29/19 21:35 Dose: 30 ml Melatonin (Melatonin) 6 mg PO BEDTIME [facility] Last Admin: 08/31/19 21:16 Dose: 6 mg Nicotine (Habitrol) 21 mg TRDERM DAILY [facility] Last Admin: 09/01/19 08:39 Dose: 21 mg Nicotine Polacrilex (Nicorelief) 2 mg CHEW Q1H PRN PRN Reason: Other Polyethylene Glycol (Miralax) 17 gm PO DAILY PRN PRN Reason: Constipation Last Admin: 09/01/19 05:50 Dose: 17 gm Sodium Chloride (Saline Flush) 10 ml FLUSH ASDIRECTED PRN PRN Reason: Keep Vein Open Last Admin: 08/29/19 08:49 Dose: 10 ml Tamsulosin HCl (Flomax) 0.4 mg PO PCBREAKFAST [facility] Last Admin: 09/01/19 08:39 Dose: 0.4 mg Discontinued Medications Apixaban (Eliquis) 5 mg PO BID [facility] Bumetanide (Bumex) 4 mg IVPUSH ONETIME ONE Stop: 08/25/19 14:01 Last Admin: 08/25/19 13:56 Dose: 4 mg Bumetanide (Bumex) 2 mg IVPUSH ONETIME ONE Stop: 08/26/19 09:01 Last Admin: 08/26/19 09:39 Dose: 2 mg Bumetanide (Bumex) 2 mg IVPUSH Q12H [facility] Last Admin: 08/30/19 06:09 Dose: 2 mg Bumetanide (Bumex) 2 mg IVPUSH ONETIME ONE Stop: 08/27/19 09:01 Last Admin: 08/27/19 08:56 Dose: 2 mg Bumetanide (Bumex) 2 mg IVPUSH ONETIME ONE Stop: 09/01/19 09:31 Last Admin: 09/01/19 10:30 Dose: 2 mg Citalopram Hydrobromide (Celexa) 20 mg PO DAILY [facility] Last Admin: 08/26/19 09:02 Dose: 20 mg Dexamethasone (Dexamethasone) 8 mg PO ONETIME ONE Stop: 08/31/19 16:31 Last Admin: 08/31/19 17:21 Dose: 8 mg Gabapentin (Neurontin) 100 mg PO ONETIME ONE Stop: 08/29/19 09:36 Last Admin: 08/29/19 10:16 Dose: 100 mg Levofloxacin/Dextrose 750 mg/ (Premix) 150 mls @ 100 mls/hr IV Q24H [facility] Last Admin: 08/27/19 19:51 Dose: 100 mls/hr Levofloxacin 250 mg/ (Levofloxacin 500 mg) 750 mg PO Q24H [facility] Stop: 08/30/19 20:01 Last Admin: 08/29/19 20:13 Dose: 750 mg Metoprolol Tartrate (Lopressor) 25 mg PO BID [facility] Last Admin: 08/28/19 08:44 Dose: 25 mg Oxycodone HCl (Oxycodone) 5 mg PO Q4H PRN PRN Reason: Pain Last Admin: 09/01/19 05:41 Dose: 5 mg Potassium Chloride (Klor-Con M20) 40 meq PO ONETIME ONE Stop: 08/26/19 09:01 Last Admin: 08/26/19 09:03 Dose: 40 meq Potassium Chloride (Klor-Con M20) 40 meq PO ONETIME ONE Stop: 08/26/19 17:01 Last Admin: 08/26/19 17:17 Dose: 40 meq Potassium Chloride (Klor-Con M20) 40 meq PO ONETIME ONE Stop: 08/27/19 08:46 Last Admin: 08/27/19 08:37 Dose: 40 meq Potassium Chloride (Klor-Con M20) 40 meq PO ONETIME ONE Stop: 08/27/19 12:01 Last Admin: 08/27/19 12:32 Dose: 40 meq Potassium Chloride (Klor-Con M20) 40 meq PO ONETIME ONE Stop: 08/27/19 17:01 Last Admin: 08/27/19 17:29 Dose: 40 meq Potassium Chloride (Klor-Con M20) 40 meq PO ONETIME ONE Stop: 08/31/19 09:31 Last Admin: 08/31/19 09:19 Dose: 40 meq Rivarox[facility] ([facility]to) [facility] Last Admin: 08/30/19 17:32 Dose: 20 mg Tamsulosin HCl (Flomax) 0.4 mg PO ONETIME ONE Stop: 08/30/19 10:31 Last Admin: 08/30/19 11:05 Dose: 0.4 mg - Exam Quality Assessment: Supplemental Oxygen General: Alert, Oriented, Cooperative, No Acute Distress Lungs: Normal Respiratory Effort Cardiovascular: Regular Rate, Regular Rhythm GI/Abdominal Exam: Soft, No Distention Extremities: Pedal Edema Skin: Warm, Dry Psy/Mental Status: Alert, Normal Affect Sepsis Event Note - Evaluation Sepsis Screening Result: No Definite Risk - Focused Exam Vital Signs: Vital Signs Temp Pulse Resp BP Pulse Ox Pulse Ox 09/01/19 09:00 92 L 09/01/19 07:02 103 H 09/01/19 07:00 36.7 C 81 18 116/68 96 09/01/19 03:00 36.3 C 98 18 137/72 90 L Date Exam was Performed: 09/01/19 Time Exam was Performed: 10:50 - Problem List & Annotations (1) Chronic respiratory failure with hypercapnia Status: Acute Current Visit: Yes - Problem List Review Problem List Initiated/Reviewed/Updated: Yes - My Orders Last 24 Hours: My Active Orders 08/31/19 13:15 CULTURE URINE [RM] Routine 08/31/19 Lunch Regular Diet [DIET] 09/01/19 09:00 dexAMETHasone 4 mg PO BID 09/01/19 10:44 HYDROmorphone [Dilaudid] 2 - 4 mg PO Q3H PRN - Plan Plan:: ASSESSMENT AND PLAN Acute on chronic respiratory failure-likely multifactorial with COPD as well as diastolic congestive heart failure and possibly a component of obesity hypoventilation. He has chronic CO2 retention and the use of BiPAP in the hospital did not provide significant benefit. Does seem to be improving with the NIPPV and will require ongoing use of a noninvasive ventilator such as a trilogy after hospital discharge . This will help reduce the work of breathing , decrease interruption of respiratory status, reduce the risk and severity of CO2 retention and reduce risk of readmission because of the severity of his chronic respiratory failure. I would anticipate this will be a lifelong treatment modality. He is receiving optimal therapy for both COPD and diastolic congestive heart failure. -Continue nocturnal NIPPV, plan for discharge home with noninvasive ventilator/ trilogy -Hold diuresis today BPH with URINARY RETENTION-patient with increased urinary frequency. CT scan did show distended bladder as well as some hydronephrosis likely secondary to BPH and obstruction. -Trial of tamsulosin -Continue Pena catheter, reassess again tomorrow ANASARCA-he has a known history of chronic peripheral edema with venous stasis, significantly worse over the past few months. Echocardiogram showed diastolic dysfunction. Slowly improving and we have been able to resume diuresis. -regular diet -Diuretic therapy as above STAGE III CHRONIC KIDNEY DISEASE-creatinine slightly better today and we have resumed diuresis. -Repeat labs in the morning DEPRESSION AND ANXIETY-ongoing difficulty with sleep disturbance intermittent episodes of panic attack with worsening depression and suicidal ideation. Much of this seems to be situational related to his worsening health over the past 3 months. 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 Suicidal ideation seems to be related to sporadic episodes of severe anxiety and depression with panic attacks. -Dose of Citalopram increased to 40 mg daily -Lorazepam 0.5 mg as needed -Outpatient psychiatry consult HYPOKALEMIA-potassium better today. -Recheck potassium in the a.m. RIGHT LUMBAR RADICULOPATHY-steady increase in pain over the past few days, likely secondary to fall at home. Not much improvement with gabapentin. Steroids initiated yesterday. -Continue pain control -Consider epidural steroid injections Wednesday -Consider trial of dexamethasone DIASTOLIC CONGESTIVE HEART FAILURE-slowly improving. Tolerating carvedilol. -Continue carvedilol twice daily -Diuretic therapy as above SLEEP APNEA-he has undergone a sleep study showing evidence of obstructive sleep apnea. He has been unable to get in for his CPAP titration study. -Trial of NIPPV as above -Plan for home NIPPV CORONARY ARTERY DISEASE-currently asymptomatic, denies any symptoms of chest pain or pressure. -Continue outpatient medical therapy TOBACCO DEPENDENCE-patient will need ongoing discussions about the importance of tobacco cessation. Currently using a nicotine patch. MAINTENANCE ISSUES -DVT prophylaxis; holding pharmacological prophylaxis secondary to hematuria -GI prophylaxis; not indicated -Pena catheter; not indicated -Nutrition; regular DISPOSITION-anticipate discharge to home with home care after the hospital stay. Sp Garcia MD
[2019-09-01] MEDS: HYDROmorphone 2 MG Tab PO PRN ×2 (13:36→21:53)
[2019-09-01] MEDS: Latanoprost 0.005% Ophth Soln 2.5 ML Bottle EYEBOTH SCH (21:10)
[2019-09-01] MEDS: Melatonin 3 MG Tab PO SCH (21:10)
[2019-09-01] MEDS: Gabapentin 300 MG Cap PO SCH (21:10)
[2019-09-01] MEDS: LORazepam 0.5 MG Tab PO PRN (21:53)
[2019-09-01] MEDS: Acetaminophen 325 MG Tab PO PRN (21:53)
[2019-09-02] MEDS: Albuterol/Ipratropium 3.0-0.5 MG/3 ML Neb Soln NEB SCH ×4 (07:27→21:10)
[2019-09-02] MEDS: Tamsulosin 0.4 MG Cap.ER PO SCH (08:10)
[2019-09-02] MEDS: Citalopram 20 MG Tab PO SCH (08:11)
[2019-09-02] MEDS: Dexamethasone 4 MG Tab PO SCH ×2 (08:11→21:09)
[2019-09-02] MEDS: Nicotine 21 MG/24 Hr Patch TRDERM SCH (08:12)
[2019-09-02] MEDS: Polyethylene Glycol 3350 Powder 17 GM Packet PO PRN (08:19)
--- NOTE | 2019-09-02 09:24 | PCM.PN ---
- General Info Date of Service: 09/02/19 Subjective Update: There were no acute events overnight. He had a good response to diuresis again yesterday but his weight is up a little bit today compared to yesterday. He thinks his edema especially in his thighs is better today. Right thigh and buttocks pain is quite a bit better today and he is able to bear weight. He thinks his shortness of breath is a little better today and he is not requiring supplemental oxygen this morning. No hematuria noted today. Functional Status: Reports: Pain Controlled, Tolerating Diet - Review of Systems General: Denies: Fever Pulmonary: Denies: Shortness of Breath Musculoskeletal: Reports: Leg Pain (mild right leg/hip) - Patient Data Vitals - Most Recent: Last Vital Signs Temp 36.2 C 09/02/19 07:00 Pulse 81 09/02/19 07:29 Resp 18 09/02/19 07:00 BP 145/79 H 09/02/19 07:00 Pulse Ox 95 09/02/19 07:29 Weight - Most Recent: 145.376 kg I&O - Last 24 Hours: Intake & Output 09/01/19 09/02/19 09/02/19 22:59 06:59 14:59 Intake Total 60 300 560 Output Total 900 1000 Balance -840 -700 560 [place] Results Last 24 Hours: Microbiology 08/31/19 13:15 Urine Culture - Preliminary Urine, Catheterized NO GROWTH AFTER 1 DAY Med Orders - Current: Current Medications Acetaminophen (Tylenol) 650 mg PO Q4H PRN PRN Reason: Pain (Mild 1-3)/fever Last Admin: 09/01/19 21:53 Dose: 650 mg Albuterol (Proventil Neb Soln) 2.5 mg NEB Q4H PRN PRN Reason: Shortness Of Breath/wheezing Albuterol/Ipratropium (Duoneb 3.0-0.5 Mg/3 Ml) 3 ml NEB QIDRT [facility] Last Admin: 09/02/19 07:27 Dose: 3 ml Bumetanide (Bumex) 2 mg IVPUSH ONETIME ONE Stop: 09/02/19 09:31 Citalopram Hydrobromide (Celexa) 40 mg PO DAILY [facility] Last Admin: 09/02/19 08:11 Dose: 40 mg Clonazepam (Klonopin) 0.5 mg PO BEDTIME PRN PRN Reason: Anxiety Last Admin: 08/29/19 22:53 Dose: 0.5 mg Dexamethasone (Dexamethasone) 4 mg PO BID [facility] Last Admin: 09/02/19 08:11 Dose: 4 mg Gabapentin (Neurontin) 300 mg PO BEDTIME [facility] Last Admin: 09/01/19 21:10 Dose: 300 mg Hydromorphone HCl (Dilaudid) 2 - 4 mg PO Q3H PRN PRN Reason: Pain Last Admin: 09/01/19 21:53 Dose: 2 mg Latanoprost (Xalatan 0.005% Ophth Soln) 0 ml EYEBOTH BEDTIME [facility] Last Admin: 09/01/19 21:10 Dose: 1 drop Lorazepam (Ativan) 0.5 mg IVPUSH Q4H PRN PRN Reason: Severe anxiety Last Admin: 08/29/19 16:47 Dose: 0.5 mg Lorazepam (Ativan) 0.5 mg PO Q4H PRN PRN Reason: Mild to Moderate anxiety Last Admin: 09/01/19 21:53 Dose: 0.5 mg Losartan Potassium (Cozaar) 25 mg PO DAILY [facility] Last Admin: 08/30/19 08:47 Dose: 25 mg Magnesium Hydroxide (Milk Of Magnesia) 30 ml PO Q4H PRN PRN Reason: Constipation Last Admin: 08/29/19 21:35 Dose: 30 ml Melatonin (Melatonin) 6 mg PO BEDTIME [facility] Last Admin: 09/01/19 21:10 Dose: 6 mg Nicotine (Habitrol) 21 mg TRDERM DAILY [facility] Last Admin: 09/02/19 08:12 Dose: 21 mg Nicotine Polacrilex (Nicorelief) 2 mg CHEW Q1H PRN PRN Reason: Other Polyethylene Glycol (Miralax) 17 gm PO DAILY PRN PRN Reason: Constipation Last Admin: 09/02/19 08:19 Dose: 17 gm Sodium Chloride (Saline Flush) 10 ml FLUSH ASDIRECTED PRN PRN Reason: Keep Vein Open Last Admin: 08/29/19 08:49 Dose: 10 ml Tamsulosin HCl (Flomax) 0.4 mg PO PCBREAKFAST [facility] Last Admin: 09/02/19 08:10 Dose: 0.4 mg Discontinued Medications Apixaban (Eliquis) 5 mg PO BID [facility] Bumetanide (Bumex) 4 mg IVPUSH ONETIME ONE Stop: 08/25/19 14:01 Last Admin: 08/25/19 13:56 Dose: 4 mg Bumetanide (Bumex) 2 mg IVPUSH ONETIME ONE Stop: 08/26/19 09:01 Last Admin: 08/26/19 09:39 Dose: 2 mg Bumetanide (Bumex) 2 mg IVPUSH Q12H [facility] Last Admin: 08/30/19 06:09 Dose: 2 mg Bumetanide (Bumex) 2 mg IVPUSH ONETIME ONE Stop: 08/27/19 09:01 Last Admin: 08/27/19 08:56 Dose: 2 mg Bumetanide (Bumex) 2 mg IVPUSH ONETIME ONE Stop: 09/01/19 09:31 Last Admin: 09/01/19 10:30 Dose: 2 mg Citalopram Hydrobromide (Celexa) 20 mg PO DAILY [facility] Last Admin: 08/26/19 09:02 Dose: 20 mg Dexamethasone (Dexamethasone) 8 mg PO ONETIME ONE Stop: 08/31/19 16:31 Last Admin: 08/31/19 17:21 Dose: 8 mg Gabapentin (Neurontin) 100 mg PO ONETIME ONE Stop: 08/29/19 09:36 Last Admin: 08/29/19 10:16 Dose: 100 mg Levofloxacin/Dextrose 750 mg/ (Premix) 150 mls @ 100 mls/hr IV Q24H [facility] Last Admin: 08/27/19 19:51 Dose: 100 mls/hr Levofloxacin 250 mg/ (Levofloxacin 500 mg) 750 mg PO Q24H [facility] Stop: 08/30/19 20:01 Last Admin: 08/29/19 20:13 Dose: 750 mg Metoprolol Tartrate (Lopressor) 25 mg PO BID [facility] Last Admin: 08/28/19 08:44 Dose: 25 mg Oxycodone HCl (Oxycodone) 5 mg PO Q4H PRN PRN Reason: Pain Last Admin: 09/01/19 05:41 Dose: 5 mg Potassium Chloride (Klor-Con M20) 40 meq PO ONETIME ONE Stop: 08/26/19 09:01 Last Admin: 08/26/19 09:03 Dose: 40 meq Potassium Chloride (Klor-Con M20) 40 meq PO ONETIME ONE Stop: 08/26/19 17:01 Last Admin: 08/26/19 17:17 Dose: 40 meq Potassium Chloride (Klor-Con M20) 40 meq PO ONETIME ONE Stop: 08/27/19 08:46 Last Admin: 08/27/19 08:37 Dose: 40 meq Potassium Chloride (Klor-Con M20) 40 meq PO ONETIME ONE Stop: 08/27/19 12:01 Last Admin: 08/27/19 12:32 Dose: 40 meq Potassium Chloride (Klor-Con M20) 40 meq PO ONETIME ONE Stop: 08/27/19 17:01 Last Admin: 08/27/19 17:29 Dose: 40 meq Potassium Chloride (Klor-Con M20) 40 meq PO ONETIME ONE Stop: 08/31/19 09:31 Last Admin: 08/31/19 09:19 Dose: 40 meq Rivaroxaban (Xarelto) 20 mg PO WITHDINNER [facility] Last Admin: 08/30/19 17:32 Dose: 20 mg Tamsulosin HCl (Flomax) 0.4 mg PO ONETIME ONE Stop: 08/30/19 10:31 Last Admin: 08/30/19 11:05 Dose: 0.4 mg - Exam Quality Assessment: No: Supplemental Oxygen General: Alert, Oriented, Cooperative, No Acute Distress Lungs: Normal Respiratory Effort Cardiovascular: Regular Rate, Regular Rhythm GI/Abdominal Exam: Soft, No Distention Extremities: Pedal Edema Skin: Warm, Dry Psy/Mental Status: Alert, Normal Affect Sepsis Event Note - Evaluation Sepsis Screening Result: No Definite Risk - Focused Exam Vital Signs: Vital Signs Temp Pulse Resp BP Pulse Ox Pulse Ox 09/02/19 07:29 81 95 09/02/19 07:00 36.2 C 82 18 145/79 H 93 L 09/02/19 05:18 97 09/02/19 03:26 36.3 C 81 18 153/83 H 95 09/02/19 02:56 36.3 C 20 147/91 H 92 L 09/01/19 22:06 37.4 C 105 H 20 129/59 L 92 L Date Exam was Performed: 09/02/19 Time Exam was Performed: 11:08 - Problem List & Annotations (1) Chronic respiratory failure with hypercapnia Status: Acute Current Visit: Yes - Problem List Review Problem List Initiated/Reviewed/Updated: Yes - My Orders Last 24 Hours: My Active Orders 09/01/19 09:00 dexAMETHasone 4 mg PO BID 09/01/19 10:44 HYDROmorphone [Dilaudid] 2 - 4 mg PO Q3H PRN 09/02/19 09:30 Bumetanide [Bumex] 2 mg IVPUSH ONETIME ONE 09/02/19 12:15 Insert Pena Catheter [Insert Urinary Catheter] [OM.PC] Q24H 09/02/19 18:00 Bumetanide [Bumex] 1 mg IVPUSH ONETIME ONE 09/03/19 05:00 BASIC METABOLIC PANEL,BMP [CHEM] Timed - Plan Plan:: ASSESSMENT AND PLAN Acute on chronic respiratory failure-likely multifactorial with COPD as well as diastolic congestive heart failure and possibly a component of obesity hypoventilation. Slowly improving with diuresis. -Continue nocturnal NIPPV, plan for discharge home with noninvasive ventilator/ trilogy -Continue diuresis with bumetanide BPH with URINARY RETENTION-patient with increased urinary frequency. CT scan did show distended bladder as well as some hydronephrosis likely secondary to BPH and obstruction. -Continue tamsulosin -Continue Pena catheter, reassess again tomorrow ANASARCA-he has a known history of chronic peripheral edema with venous stasis, significantly worse over the past few months. Echocardiogram showed diastolic dysfunction. Ongoing slow improvement. -regular diet -Diuretic therapy as above STAGE III CHRONIC KIDNEY DISEASE-creatinine has been stable. -Repeat labs in the morning DEPRESSION AND ANXIETY-ongoing difficulty with sleep disturbance intermittent episodes of panic attack with worsening depression and suicidal ideation. Much of this seems to be situational related to his worsening health over the past 3 months. 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 Suicidal ideation seems to be related to sporadic episodes of severe anxiety and depression with panic attacks. -Dose of Citalopram increased to 40 mg daily -Lorazepam 0.5 mg as needed -Outpatient psychiatry consult HYPOKALEMIA- -Recheck potassium in the a.m. RIGHT LUMBAR RADICULOPATHY-pain is finally starting to improve with oral steroids. -Continue pain control -epidural steroid injections Wednesday -Continue dexamethasone DIASTOLIC CONGESTIVE HEART FAILURE-slowly improving. Tolerating carvedilol. -Continue carvedilol twice daily -Diuretic therapy as above SLEEP APNEA-he has undergone a sleep study showing evidence of obstructive sleep apnea. He has been unable to get in for his CPAP titration study. -Trial of NIPPV as above -Plan for home NIPPV CORONARY ARTERY DISEASE-currently asymptomatic, denies any symptoms of chest pain or pressure. -Continue outpatient medical therapy TOBACCO DEPENDENCE-patient will need ongoing discussions about the importance of tobacco cessation. Currently using a nicotine patch. MAINTENANCE ISSUES -DVT prophylaxis; holding pharmacological prophylaxis secondary to hematuria -GI prophylaxis; not indicated -Pena catheter; not indicated -Nutrition; regular DISPOSITION-anticipate discharge to home with home care after the hospital stay. Sp Garcia MD
[2019-09-02] MEDS ORDERED: Bumetanide 2.5 MG/10 ML MDV IVPUSH ONE (09:30)
[2019-09-02] MEDS: Losartan 25 MG Tab PO SCH (09:45)
[2019-09-02] MEDS: Acetaminophen 325 MG Tab PO PRN ×2 (17:15→21:11)
[2019-09-02] MEDS: HYDROmorphone 2 MG Tab PO PRN ×2 (17:16→21:10)
[2019-09-02] MEDS ORDERED: Bumetanide 1 MG/4 ML MDV IVPUSH ONE (18:00)
[2019-09-02] MEDS: Magnesium Hydroxide 400 MG/5 ML Susp 30 ML Cup PO PRN (19:51)
[2019-09-02] MEDS: Melatonin 3 MG Tab PO SCH (21:09)
[2019-09-02] MEDS: Latanoprost 0.005% Ophth Soln 2.5 ML Bottle EYEBOTH SCH (21:10)
[2019-09-02] MEDS: LORazepam 0.5 MG Tab PO PRN (21:10)
[2019-09-03] MEDS: Albuterol/Ipratropium 3.0-0.5 MG/3 ML Neb Soln NEB SCH ×4 (07:26→20:00)
[2019-09-03] MEDS: Polyethylene Glycol 3350 Powder 17 GM Packet PO PRN (08:08)
[2019-09-03] MEDS: Dexamethasone 4 MG Tab PO SCH ×2 (08:10→20:00)
[2019-09-03] MEDS: Citalopram 20 MG Tab PO SCH (08:10)
[2019-09-03] MEDS: Tamsulosin 0.4 MG Cap.ER PO SCH (08:10)
[2019-09-03] MEDS: Nicotine 21 MG/24 Hr Patch TRDERM SCH (08:11)
[2019-09-03] MEDS: Losartan 25 MG Tab PO SCH (08:11)
[2019-09-03] MEDS ORDERED: Bupivacaine 0.25% 10 ML SDV ONE (08:56)
[2019-09-03] MEDS ORDERED: methylPREDNISolone Acetate 80 MG/ML SDV ONE (08:56)
[2019-09-03] MEDS ORDERED: Lidocaine 1% 20 ML MDV ONE (08:58)
--- NOTE | 2019-09-03 09:55 | ANES ---
DATE OF SERVICE: 09/03/2019 INDICATION: Fabio is inpatient currently at , in for respiratory failure and exacerbation of CHF. Had been admitted earlier this week. On admission, he was complaining of some leg pain. Dr. Garcia did a CT scan on him and showed that the gentleman had a disk bulge at L4-5 and L5-S1, and Dr. Garcia had requested us to do an epidural steroid injection with the patient. The patient was on Xarelto when first consulted. So, we waited until this morning, Wednesday, to do the AMY to make sure that the patient was off Xarelto for more than three days. The patient last took the Xarelto at approximately 1700, on August 30, so he has been off it for more than, about, three and a half days. Risks and benefits were reviewed with the patient regarding the epidural steroid injection. The patient verbalized his understanding and wishes to proceed with the epidural steroid injection today. Please refer to the doctor's notes for ICD-10 code and diagnosis. TECHNIQUE: The patient then was sat at the edge of the bed. Betadine prep x3 to the lumbar region was done. Sterile drape was placed. 1% lidocaine skin wheal and deep was done. A 17-gauge Tuohy needle was inserted at approximately the L4-L5 position. Loss of resistance was easily achieved and good loss of resistance was noted. Negative paresthesia, negative heme, and negative CSF were noted. I then proceeded to give the patient 7 mL of sterile normal saline with 2 mL of 0.25% Sensorcaine and 1 mL of 80 mg Depo-Medrol. Tuohy needle was then flushed and withdrawn. Sterile drape was taken down. Betadine was cleaned off the back and a Band-Aid was applied to the puncture site for hemostasis. It was noted, I did hold a little extra pressure because he did have a little oozing from the puncture site, but after a couple of minutes that bleeding was resolved. He had no visible hematomas noted either around the site. Did have some tingling in his left calf with injection and a little bit of pain, but nothing too significant was noted. The patient is uncomfortable trying to lay supine, so we just left him sitting for now. We will reschedule him sometime in the middle of September for his second AMY. Since he is on Xarelto, he would need to be off three days prior to his next AMY. The patient tolerated the procedure without difficulty. Please refer to the nurse's notes for vital signs. Saturnino Wright CRNA /[id number]
--- NOTE | 2019-09-03 11:04 | PCM.PN ---
- General Info Date of Service: 09/03/19 Subjective Update: There were no acute events overnight. He was able to utilize the noninvasive ventilation for a while. Still having some right hip/buttocks pain but this is better. Leg is much stronger today. Creatinine is down to 1.2. Excellent response to diuresis again yesterday. No fevers. Tolerated steroid injections well today. Functional Status: Reports: Pain Controlled, Tolerating Diet - Review of Systems General: Reports: Weakness Cardiovascular: Reports: Edema - Patient Data Vitals - Most Recent: Last Vital Signs Temp 36.7 C 09/03/19 10:15 Pulse 52 L 09/03/19 10:15 Resp 18 09/03/19 10:15 BP 176/71 H 09/03/19 10:15 Pulse Ox 97 09/03/19 10:15 Weight - Most Recent: 143.335 kg I&O - Last 24 Hours: Intake & Output 09/02/19 09/03/19 09/03/19 22:59 06:59 14:59 Intake Total 500 840 760 Output Total 800 1700 Balance -300 -860 760 Lab Results Last 24 Hours: Laboratory Results - last 24 hr 09/03/19 Range/Units 05:42 Sodium 137 L (140-148) mmol/L Potassium 3.7 (3.6-5.2) mmol/L Chloride 97 L (100-108) mmol/L Carbon Dioxide 35 H (21-32) mmol/L Anion Gap 8.7 (5.0-14.0) mmol/L BUN 38 H (7-18) mg/dL Creatinine 1.2 (0.8-1.3) mg/dL Est Cr Clr Drug Dosing 58.44 mL/min Estimated GFR (MDRD) 60 (>60) Glucose 135 H (74-106) mg/dL Calcium 9.0 (8.5-10.1) mg/dL [place] Results Last 24 Hours: Microbiology 08/31/19 13:15 Urine Culture - Final Urine, Catheterized NO GROWTH AFTER 2 DAYS Med Orders - Current: Current Medications Acetaminophen (Tylenol) 650 mg PO Q4H PRN PRN Reason: Pain (Mild 1-3)/fever Last Admin: 09/02/19 21:11 Dose: 650 mg Albuterol (Proventil Neb Soln) 2.5 mg NEB Q4H PRN PRN Reason: Shortness Of Breath/wheezing Albuterol/Ipratropium (Duoneb 3.0-0.5 Mg/3 Ml) 3 ml NEB QIDRT [facility] Last Admin: 09/03/19 07:26 Dose: 3 ml Citalopram Hydrobromide (Celexa) 40 mg PO DAILY [facility] Last Admin: 09/03/19 08:10 Dose: 40 mg Clonazepam (Klonopin) 0.5 mg PO BEDTIME PRN PRN Reason: Anxiety Last Admin: 08/29/19 22:53 Dose: 0.5 mg Dexamethasone (Dexamethasone) 4 mg PO BID [facility] Last Admin: 09/03/19 08:10 Dose: 4 mg Hydromorphone HCl (Dilaudid) 2 - 4 mg PO Q3H PRN PRN Reason: Pain Last Admin: 09/02/19 21:10 Dose: 2 mg Latanoprost (Xalatan 0.005% Ophth Soln) 0 ml EYEBOTH BEDTIME [facility] Last Admin: 09/02/19 21:10 Dose: 1 drop Lorazepam (Ativan) 0.5 mg IVPUSH Q4H PRN PRN Reason: Severe anxiety Last Admin: 08/29/19 16:47 Dose: 0.5 mg Lorazepam (Ativan) 0.5 mg PO Q4H PRN PRN Reason: Mild to Moderate anxiety Last Admin: 09/02/19 21:10 Dose: 0.5 mg Losartan Potassium (Cozaar) 25 mg PO DAILY [facility] Last Admin: 09/03/19 08:11 Dose: 25 mg Magnesium Hydroxide (Milk Of Magnesia) 30 ml PO Q4H PRN PRN Reason: Constipation Last Admin: 09/02/19 19:51 Dose: 30 ml Melatonin (Melatonin) 6 mg PO BEDTIME [facility] Last Admin: 09/02/19 21:09 Dose: 6 mg Nicotine (Habitrol) 21 mg TRDERM DAILY [facility] Last Admin: 09/03/19 08:11 Dose: 21 mg Nicotine Polacrilex (Nicorelief) 2 mg CHEW Q1H PRN PRN Reason: Other Polyethylene Glycol (Miralax) 17 gm PO DAILY PRN PRN Reason: Constipation Last Admin: 09/03/19 08:08 Dose: 17 gm Sodium Chloride (Saline Flush) 10 ml FLUSH ASDIRECTED PRN PRN Reason: Keep Vein Open Last Admin: 08/29/19 08:49 Dose: 10 ml Tamsulosin HCl (Flomax) 0.4 mg PO PCBREAKFAST [facility] Last Admin: 09/03/19 08:10 Dose: 0.4 mg Discontinued Medications Apixaban (Eliquis) 5 mg PO BID [facility] Bumetanide (Bumex) 4 mg IVPUSH ONETIME ONE Stop: 08/25/19 14:01 Last Admin: 08/25/19 13:56 Dose: 4 mg Bumetanide (Bumex) 2 mg IVPUSH ONETIME ONE Stop: 08/26/19 09:01 Last Admin: 08/26/19 09:39 Dose: 2 mg Bumetanide (Bumex) 2 mg IVPUSH Q12H [facility] Last Admin: 08/30/19 06:09 Dose: 2 mg Bumetanide (Bumex) 2 mg IVPUSH ONETIME ONE Stop: 08/27/19 09:01 Last Admin: 08/27/19 08:56 Dose: 2 mg Bumetanide (Bumex) 2 mg IVPUSH ONETIME ONE Stop: 09/01/19 09:31 Last Admin: 09/01/19 10:30 Dose: 2 mg Bumetanide (Bumex) 2 mg IVPUSH ONETIME ONE Stop: 09/02/19 09:31 Last Admin: 09/02/19 09:45 Dose: 2 mg Bumetanide (Bumex) 1 mg IVPUSH ONETIME ONE Stop: 09/02/19 18:01 Last Admin: 09/02/19 17:24 Dose: 1 mg Bupivacaine HCl (Sensorcaine-Mpf 0.25%) Confirm Administered Dose 10 ml .ROUTE .STK-MED ONE Stop: 09/03/19 08:57 Citalopram Hydrobromide (Celexa) 20 mg PO DAILY [facility] Last Admin: 08/26/19 09:02 Dose: 20 mg Dexamethasone (Dexamethasone) 8 mg PO ONETIME ONE Stop: 08/31/19 16:31 Last Admin: 08/31/19 17:21 Dose: 8 mg Gabapentin (Neurontin) 100 mg PO ONETIME ONE Stop: 08/29/19 09:36 Last Admin: 08/29/19 10:16 Dose: 100 mg Gabapentin (Neurontin) 300 mg PO BEDTIME [facility] Last Admin: 09/01/19 21:10 Dose: 300 mg Levofloxacin/Dextrose 750 mg/ (Premix) 150 mls @ 100 mls/hr IV Q24H [facility] Last Admin: 08/27/19 19:51 Dose: 100 mls/hr Levofloxacin 250 mg/ (Levofloxacin 500 mg) 750 mg PO Q24H [facility] Stop: 08/30/19 20:01 Last Admin: 08/29/19 20:13 Dose: 750 mg Lidocaine HCl (Xylocaine 1%) Confirm Administered Dose 20 ml .ROUTE .STK-MED ONE Stop: 09/03/19 08:59 Methylprednisolone Acetate (Depo-Medrol) Confirm Administered Dose 80 mg .ROUTE .STK-MED ONE Stop: 09/03/19 08:57 Metoprolol Tartrate (Lopressor) 25 mg PO BID [facility] Last Admin: 08/28/19 08:44 Dose: 25 mg Oxycodone HCl (Oxycodone) 5 mg PO Q4H PRN PRN Reason: Pain Last Admin: 09/01/19 05:41 Dose: 5 mg Potassium Chloride (Klor-Con M20) 40 meq PO ONETIME ONE Stop: 08/26/19 09:01 Last Admin: 08/26/19 09:03 Dose: 40 meq Potassium Chloride (Klor-Con M20) 40 meq PO ONETIME ONE Stop: 08/26/19 17:01 Last Admin: 08/26/19 17:17 Dose: 40 meq Potassium Chloride (Klor-Con M20) 40 meq PO ONETIME ONE Stop: 08/27/19 08:46 Last Admin: 08/27/19 08:37 Dose: 40 meq Potassium Chloride (Klor-Con M20) 40 meq PO ONETIME ONE Stop: 08/27/19 12:01 Last Admin: 08/27/19 12:32 Dose: 40 meq Potassium Chloride (Klor-Con M20) 40 meq PO ONETIME ONE Stop: 08/27/19 17:01 Last Admin: 08/27/19 17:29 Dose: 40 meq Potassium Chloride (Klor-Con M20) 40 meq PO ONETIME ONE Stop: 08/31/19 09:31 Last Admin: 08/31/19 09:19 Dose: 40 meq Rivaroxaban (Xarelto) 20 mg PO WITHDINNER [facility] Last Admin: 08/30/19 17:32 Dose: 20 mg Tamsulosin HCl (Flomax) 0.4 mg PO ONETIME ONE Stop: 08/30/19 10:31 Last Admin: 08/30/19 11:05 Dose: 0.4 mg - Exam Quality Assessment: Supplemental Oxygen General: Alert, Oriented, Cooperative, No Acute Distress Lungs: Normal Respiratory Effort Cardiovascular: Regular Rate, Regular Rhythm GI/Abdominal Exam: Soft, No Distention Extremities: Pedal Edema. No: Increased Warmth Psy/Mental Status: Alert, Normal Affect Sepsis Event Note - Evaluation Sepsis Screening Result: No Definite Risk - Focused Exam Vital Signs: Vital Signs Temp Pulse Resp BP BP Pulse Ox Pulse Ox 09/03/19 10:15 36.7 C 52 L 18 176/71 H 97 09/03/19 10:00 106 H 172/84 H 98 09/03/19 09:50 105 H 18 179/80 H 93 L 09/03/19 09:26 53 L 18 169/70 H 93 L 09/03/19 08:11 123/68 09/03/19 07:58 36.8 C 75 16 123/68 92 L 09/03/19 07:26 85 91 L 09/03/19 02:09 36.6 C 85 16 129/79 92 L 09/03/19 01:20 96 Date Exam was Performed: 09/03/19 Time Exam was Performed: 15:03 - Problem List & Annotations (1) Chronic respiratory failure with hypercapnia Status: Acute Current Visit: Yes - Problem List Review Problem List Initiated/Reviewed/Updated: Yes - My Orders Last 24 Hours: My Active Orders 09/02/19 12:15 Insert Pena Catheter [Insert Urinary Catheter] [OM.PC] Q24H 09/03/19 11:01 Potassium Chloride [Klor-Con M20] 40 meq PO ONETIME ONE 09/03/19 11:15 Bumetanide [Bumex] 2 mg IVPUSH Q12H 09/04/19 05:00 BASIC METABOLIC PANEL,BMP [CHEM] Timed - Plan Plan:: ASSESSMENT AND PLAN Acute on chronic respiratory failure-likely multifactorial with COPD as well as diastolic congestive heart failure and possibly a component of obesity hypoventilation. Slowly improving with diuresis. -Continue nocturnal NIPPV, plan for discharge home with noninvasive ventilator/ trilogy -Continue diuresis with bumetanide BPH with URINARY RETENTION-patient with increased urinary frequency. CT scan did show distended bladder as well as some hydronephrosis likely secondary to BPH and obstruction. -Continue tamsulosin -Continue Pena catheter, plan to remove tomorrow morning ANASARCA-he has a known history of chronic peripheral edema with venous stasis, significantly worse over the past few months. Echocardiogram showed diastolic dysfunction. Ongoing slow improvement. -regular diet -Diuretic therapy as above STAGE III CHRONIC KIDNEY DISEASE-creatinine has has improved over the past 24 hours. -Repeat labs in the morning DEPRESSION AND ANXIETY-ongoing difficulty with sleep disturbance intermittent episodes of panic attack with worsening depression and suicidal ideation. Much of this seems to be situational related to his worsening health over the past 3 months. 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 Suicidal ideation seems to be related to sporadic episodes of severe anxiety and depression with panic attacks. -Dose of Citalopram increased to 40 mg daily -Lorazepam 0.5 mg as needed -Outpatient psychiatry consult HYPOKALEMIA-potassium on the low side of normal today. -Supplement this morning -Recheck potassium in the a.m. RIGHT LUMBAR RADICULOPATHY-pain and strength have improved significantly. Tolerated epidural steroid injections today. -Continue pain control -epidural steroid injections completed today -Continue dexamethasone today, discontinue tomorrow DIASTOLIC CONGESTIVE HEART FAILURE-slowly improving. Tolerating carvedilol. -Continue carvedilol twice daily -Diuretic therapy as above SLEEP APNEA-he has undergone a sleep study showing evidence of obstructive sleep apnea. He has been unable to get in for his CPAP titration study. -Trial of NIPPV as above -Plan for home NIPPV CORONARY ARTERY DISEASE-currently asymptomatic, denies any symptoms of chest pain or pressure. -Continue outpatient medical therapy TOBACCO DEPENDENCE-patient will need ongoing discussions about the importance of tobacco cessation. Currently using a nicotine patch. MAINTENANCE ISSUES -DVT prophylaxis; holding pharmacological prophylaxis secondary to hematuria -GI prophylaxis; not indicated -Pena catheter; not indicated -Nutrition; regular DISPOSITION-anticipate discharge to home with home care after the hospital stay. Sp Garcia MD
[2019-09-03] MEDS: Bumetanide 2.5 MG/10 ML MDV IVPUSH SCH ×2 (11:20→23:11)
[2019-09-03] MEDS ORDERED: Potassium Chloride 20 MEQ Tab.ER PO ONE (12:00)
[2019-09-03] MEDS: Magnesium Hydroxide 400 MG/5 ML Susp 30 ML Cup PO PRN ×2 (15:36→21:32)
[2019-09-03] MEDS ORDERED: Bisacodyl 10 MG Supp RECTAL ONE (19:37)
[2019-09-03] MEDS: Melatonin 3 MG Tab PO SCH (20:00)
[2019-09-03] MEDS: Latanoprost 0.005% Ophth Soln 2.5 ML Bottle EYEBOTH SCH (20:00)
[2019-09-03] MEDS: LORazepam 0.5 MG Tab PO PRN (23:20)
[2019-09-04] MEDS: Albuterol/Ipratropium 3.0-0.5 MG/3 ML Neb Soln NEB SCH ×4 (07:17→20:47)
[2019-09-04] MEDS: Nicotine 21 MG/24 Hr Patch TRDERM SCH (09:10)
[2019-09-04] MEDS: Citalopram 20 MG Tab PO SCH (09:10)
[2019-09-04] MEDS: Dexamethasone 4 MG Tab PO SCH (09:10)
[2019-09-04] MEDS: Tamsulosin 0.4 MG Cap.ER PO SCH (09:10)
[2019-09-04] MEDS: Losartan 25 MG Tab PO SCH (09:11)
--- NOTE | 2019-09-04 10:18 | PCM.PN ---
- General Info Date of Service: 09/04/19 Subjective Update: There were no acute events overnight. Patient did have a bowel movement last night shortly after midnight. No abdominal pain or nausea. Shortness of breath slowly continues to get better. Lower extremity edema is slightly better. Kidney function stable. Functional Status: Reports: Pain Controlled, Tolerating Diet - Review of Systems General: Reports: Weakness Musculoskeletal: Reports: Leg Pain (right lateral thigh and knee ) - Patient Data Vitals - Most Recent: Last Vital Signs Temp 37.1 C 09/04/19 07:09 Pulse 51 L 09/04/19 07:17 Resp 18 09/04/19 07:09 BP 147/66 H 09/04/19 09:11 Pulse Ox 95 09/04/19 07:17 Weight - Most Recent: 143.244 kg I&O - Last 24 Hours: Intake & Output 09/03/19 09/04/19 09/04/19 22:59 06:59 14:59 Intake Total 720 720 Output Total 0167 4537 350 Balance -1720 -2155 -350 Lab Results Last 24 Hours: Laboratory Results - last 24 hr 09/04/19 Range/Units 05:40 Sodium 136 L (140-148) mmol/L Potassium 3.9 (3.6-5.2) mmol/L Chloride 97 L (100-108) mmol/L Carbon Dioxide 34 H (21-32) mmol/L Anion Gap 8.9 (5.0-14.0) mmol/L BUN 40 H (7-18) mg/dL Creatinine 1.3 (0.8-1.3) mg/dL Est Cr Clr Drug Dosing 53.95 mL/min Estimated GFR (MDRD) 54 L (>60) Glucose 122 H (74-106) mg/dL Calcium 9.2 (8.5-10.1) mg/dL [place] Results Last 24 Hours: Microbiology 08/31/19 13:15 Urine Culture - Final Urine, Catheterized NO GROWTH AFTER 2 DAYS Med Orders - Current: Current Medications Acetaminophen (Tylenol) 650 mg PO Q4H PRN PRN Reason: Pain (Mild 1-3)/fever Last Admin: 09/02/19 21:11 Dose: 650 mg Albuterol (Proventil Neb Soln) 2.5 mg NEB Q4H PRN PRN Reason: Shortness Of Breath/wheezing Albuterol/Ipratropium (Duoneb 3.0-0.5 Mg/3 Ml) 3 ml NEB QIDRT [facility] Last Admin: 09/04/19 07:17 Dose: 3 ml Citalopram Hydrobromide (Celexa) 40 mg PO DAILY [facility] Last Admin: 09/04/19 09:10 Dose: 40 mg Clonazepam (Klonopin) 0.5 mg PO BEDTIME PRN PRN Reason: Anxiety Last Admin: 08/29/19 22:53 Dose: 0.5 mg Hydromorphone HCl (Dilaudid) 2 - 4 mg PO Q3H PRN PRN Reason: Pain Last Admin: 09/02/19 21:10 Dose: 2 mg Latanoprost (Xalatan 0.005% Ophth Soln) 0 ml EYEBOTH BEDTIME [facility] Last Admin: 09/03/19 20:00 Dose: 1 drop Lorazepam (Ativan) 0.5 mg IVPUSH Q4H PRN PRN Reason: Severe anxiety Last Admin: 08/29/19 16:47 Dose: 0.5 mg Lorazepam (Ativan) 0.5 mg PO Q4H PRN PRN Reason: Mild to Moderate anxiety Last Admin: 09/03/19 23:20 Dose: 0.5 mg Losartan Potassium (Cozaar) 25 mg PO DAILY [facility] Last Admin: 09/04/19 09:11 Dose: 25 mg Magnesium Hydroxide (Milk Of Magnesia) 30 ml PO Q4H PRN PRN Reason: Constipation Last Admin: 09/03/19 21:32 Dose: 30 ml Melatonin (Melatonin) 6 mg PO BEDTIME [facility] Last Admin: 09/03/19 20:00 Dose: 6 mg Nicotine (Habitrol) 21 mg TRDERM DAILY [facility] Last Admin: 09/04/19 09:10 Dose: 21 mg Nicotine Polacrilex (Nicorelief) 2 mg CHEW Q1H PRN PRN Reason: Other Polyethylene Glycol (Miralax) 17 gm PO DAILY PRN PRN Reason: Constipation Last Admin: 09/03/19 08:08 Dose: 17 gm Sodium Chloride (Saline Flush) 10 ml FLUSH ASDIRECTED PRN PRN Reason: Keep Vein Open Last Admin: 08/29/19 08:49 Dose: 10 ml Tamsulosin HCl (Flomax) 0.4 mg PO PCBREAKFAST [facility] Last Admin: 09/04/19 09:10 Dose: 0.4 mg Discontinued Medications Apixaban (Eliquis) 5 mg PO BID [facility] Bisacodyl (Dulcolax) 10 mg RECTAL ONETIME ONE Stop: 09/03/19 19:38 Last Admin: 09/03/19 20:00 Dose: 10 mg Bumetanide (Bumex) 4 mg IVPUSH ONETIME ONE Stop: 08/25/19 14:01 Last Admin: 08/25/19 13:56 Dose: 4 mg Bumetanide (Bumex) 2 mg IVPUSH ONETIME ONE Stop: 08/26/19 09:01 Last Admin: 08/26/19 09:39 Dose: 2 mg Bumetanide (Bumex) 2 mg IVPUSH Q12H [facility] Last Admin: 08/30/19 06:09 Dose: 2 mg Bumetanide (Bumex) 2 mg IVPUSH ONETIME ONE Stop: 08/27/19 09:01 Last Admin: 08/27/19 08:56 Dose: 2 mg Bumetanide (Bumex) 2 mg IVPUSH ONETIME ONE Stop: 09/01/19 09:31 Last Admin: 09/01/19 10:30 Dose: 2 mg Bumetanide (Bumex) 2 mg IVPUSH ONETIME ONE Stop: 09/02/19 09:31 Last Admin: 09/02/19 09:45 Dose: 2 mg Bumetanide (Bumex) 1 mg IVPUSH ONETIME ONE Stop: 09/02/19 18:01 Last Admin: 09/02/19 17:24 Dose: 1 mg Bumetanide (Bumex) 2 mg IVPUSH Q12H [facility] Stop: 09/03/19 23:01 Last Admin: 09/03/19 23:11 Dose: 2 mg Bupivacaine HCl (Sensorcaine-Mpf 0.25%) Confirm Administered Dose 10 ml .ROUTE .STK-MED ONE Stop: 09/03/19 08:57 Citalopram Hydrobromide (Celexa) 20 mg PO DAILY [facility] Last Admin: 08/26/19 09:02 Dose: 20 mg Dexamethasone (Dexamethasone) 8 mg PO ONETIME ONE Stop: 08/31/19 16:31 Last Admin: 08/31/19 17:21 Dose: 8 mg Dexamethasone (Dexamethasone) 4 mg PO BID [facility] Stop: 09/04/19 10:00 Last Admin: 09/04/19 09:10 Dose: 4 mg Gabapentin (Neurontin) 100 mg PO ONETIME ONE Stop: 08/29/19 09:36 Last Admin: 08/29/19 10:16 Dose: 100 mg Gabapentin (Neurontin) 300 mg PO BEDTIME [facility] Last Admin: 09/01/19 21:10 Dose: 300 mg Levofloxacin/Dextrose 750 mg/ (Premix) 150 mls @ 100 mls/hr IV Q24H [facility] Last Admin: 08/27/19 19:51 Dose: 100 mls/hr Levofloxacin 250 mg/ (Levofloxacin 500 mg) 750 mg PO Q24H [facility] Stop: 08/30/19 20:01 Last Admin: 08/29/19 20:13 Dose: 750 mg Lidocaine HCl (Xylocaine 1%) Confirm Administered Dose 20 ml .ROUTE .STK-MED ONE Stop: 09/03/19 08:59 Methylprednisolone Acetate (Depo-Medrol) Confirm Administered Dose 80 mg .ROUTE .STK-MED ONE Stop: 09/03/19 08:57 Metoprolol Tartrate (Lopressor) 25 mg PO BID [facility] Last Admin: 08/28/19 08:44 Dose: 25 mg Oxycodone HCl (Oxycodone) 5 mg PO Q4H PRN PRN Reason: Pain Last Admin: 09/01/19 05:41 Dose: 5 mg Potassium Chloride (Klor-Con M20) 40 meq PO ONETIME ONE Stop: 08/26/19 09:01 Last Admin: 08/26/19 09:03 Dose: 40 meq Potassium Chloride (Klor-Con M20) 40 meq PO ONETIME ONE Stop: 08/26/19 17:01 Last Admin: 08/26/19 17:17 Dose: 40 meq Potassium Chloride (Klor-Con M20) 40 meq PO ONETIME ONE Stop: 08/27/19 08:46 Last Admin: 08/27/19 08:37 Dose: 40 meq Potassium Chloride (Klor-Con M20) 40 meq PO ONETIME ONE Stop: 08/27/19 12:01 Last Admin: 08/27/19 12:32 Dose: 40 meq Potassium Chloride (Klor-Con M20) 40 meq PO ONETIME ONE Stop: 08/27/19 17:01 Last Admin: 08/27/19 17:29 Dose: 40 meq Potassium Chloride (Klor-Con M20) 40 meq PO ONETIME ONE Stop: 08/31/19 09:31 Last Admin: 08/31/19 09:19 Dose: 40 meq Potassium Chloride (Klor-Con M20) 40 meq PO ONETIME ONE Stop: 09/03/19 12:01 Last Admin: 09/03/19 11:20 Dose: 40 meq Rivaroxaban (Xarelto) 20 mg PO WITHDINNER [facility] Last Admin: 08/30/19 17:32 Dose: 20 mg Tamsulosin HCl (Flomax) 0.4 mg PO ONETIME ONE Stop: 08/30/19 10:31 Last Admin: 08/30/19 11:05 Dose: 0.4 mg - Exam Quality Assessment: Supplemental Oxygen General: Alert, Oriented, Cooperative, No Acute Distress Lungs: Normal Respiratory Effort GI/Abdominal Exam: Soft, No Distention Extremities: Pedal Edema. No: Increased Warmth Skin: Warm, Dry Psy/Mental Status: Alert, Normal Affect Sepsis Event Note - Evaluation Sepsis Screening Result: No Definite Risk - Focused Exam Vital Signs: Vital Signs Temp Pulse Resp BP BP Pulse Ox Pulse Ox 09/04/19 09:11 147/66 H 09/04/19 07:17 51 L 95 09/04/19 07:09 37.1 C 103 H 18 117/94 H 95 09/04/19 02:41 36.7 C 52 L 18 129/74 92 L 09/03/19 23:00 37.2 C 88 18 126/72 94 L Date Exam was Performed: 09/04/19 Time Exam was Performed: 14:16 - Problem List & Annotations (1) Chronic respiratory failure with hypercapnia Status: Acute Current Visit: Yes - Problem List Review Problem List Initiated/Reviewed/Updated: Yes - My Orders Last 24 Hours: My Active Orders 09/04/19 10:16 Remove Pena Catheter [Urinary Catheter Removal] [RC] Per Unit Routine 09/04/19 17:00 Rivaroxaban [Xarelto] 20 mg PO WITHDINNER 09/05/19 05:00 BASIC METABOLIC PANEL,BMP [CHEM] Timed - Plan Plan:: ASSESSMENT AND PLAN Acute on chronic respiratory failure-likely multifactorial with COPD as well as diastolic congestive heart failure and possibly a component of obesity hypoventilation. Slowly improving with diuresis. -Continue nocturnal NIPPV, plan for discharge home with noninvasive ventilator/ trilogy -Continue diuresis with bumetanide BPH with URINARY RETENTION-patient with increased urinary frequency. CT scan did show distended bladder as well as some hydronephrosis likely secondary to BPH and obstruction. -Continue tamsulosin -Discontinue Pena catheter ANASARCA-he has a known history of chronic peripheral edema with venous stasis, significantly worse over the past few months. Echocardiogram showed diastolic dysfunction. Ongoing but slow improvement. -regular diet -Diuretic therapy as above STAGE III CHRONIC KIDNEY DISEASE-creatinine has remained stable over the past 24 hours. -Repeat labs in the morning DEPRESSION AND ANXIETY-ongoing difficulty with sleep disturbance intermittent episodes of panic attack with worsening depression and suicidal ideation. Much of this seems to be situational related to his worsening health over the past 3 months. 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 Suicidal ideation seems to be related to sporadic episodes of severe anxiety and depression with panic attacks. -Dose of Citalopram increased to 40 mg daily -Lorazepam 0.5 mg as needed -Outpatient psychiatry consult HYPOKALEMIA-potassium normal today. -Supplement this morning -Recheck potassium in the a.m. RIGHT LUMBAR RADICULOPATHY-pain and strength have improved significantly with the help of steroids and epidural steroid injections. -Continue pain control -epidural steroid injections again in about 2 weeks DIASTOLIC CONGESTIVE HEART FAILURE-slowly improving. Tolerating carvedilol. -Continue carvedilol twice daily -Diuretic therapy as above, transition to p.o. tomorrow morning SLEEP APNEA-he has undergone a sleep study showing evidence of obstructive sleep apnea. He has been unable to get in for his CPAP titration study. -Trial of NIPPV as above -Plan for home NIPPV CORONARY ARTERY DISEASE-currently asymptomatic, denies any symptoms of chest pain or pressure. -Continue outpatient medical therapy TOBACCO DEPENDENCE-patient will need ongoing discussions about the importance of tobacco cessation. Currently using a nicotine patch. MAINTENANCE ISSUES -DVT prophylaxis; rivaroxaban -GI prophylaxis; not indicated -Pena catheter; not indicated -Nutrition; regular DISPOSITION-anticipate discharge to home with home care after the hospital stay , likely tomorrow if stable overnight Sp Garcia MD
[2019-09-04] MEDS: HYDROmorphone 2 MG Tab PO PRN (15:43)
[2019-09-04] MEDS: Bumetanide 1 MG Tab PO SCH (16:02)
[2019-09-04] MEDS ORDERED: Rivaroxaban 10 MG Tab PO SCH (17:00)
[2019-09-04] MEDS: Latanoprost 0.005% Ophth Soln 2.5 ML Bottle EYEBOTH SCH (20:47)
[2019-09-04] MEDS: Melatonin 3 MG Tab PO SCH (20:47)
[2019-09-05 07:21] VITALS: BP 145/84
[2019-09-05] MEDS: Albuterol/Ipratropium 3.0-0.5 MG/3 ML Neb Soln NEB SCH (07:23)
[2019-09-05] MEDS: Bumetanide 1 MG Tab PO SCH (07:45)
[2019-09-05] MEDS: Losartan 25 MG Tab PO SCH (08:22)
[2019-09-05] MEDS: Citalopram 20 MG Tab PO SCH (08:22)
[2019-09-05] MEDS: Tamsulosin 0.4 MG Cap.ER PO SCH (08:22)
[2019-09-05] MEDS: Nicotine 21 MG/24 Hr Patch TRDERM SCH (08:23)
[2019-09-05] MEDS ORDERED: Potassium Chloride 20 MEQ Tab.ER PO ONE (09:00)
[2019-09-05] MEDS ORDERED: Carvedilol 6.25 MG Tab PO SCH (09:00)
--- NOTE | 2019-09-05 09:42 | PCM.DCSUM1 ---
Discharge Summary - Hospital Course Brief History: 69-year-old male with history of diastolic congestive heart failure, untreated sleep apnea, tobacco dependence, stage III kidney disease and COPD who presented with increasing shortness, somnolence, recurrent falls. He was admitted for management of an exacerbation of his diastolic congestive heart failure and acute on chronic respiratory failure. Diagnosis: Stroke: No - Discharge Data Discharge Date: 09/05/19 Discharge Disposition: Home, W Home Health Agency 06 Condition: Good - Referral to Home Health Date of Face to Face Encounter: 09/05/19 Reason for Homebound Status: Acute on chronic dyspnea as well as pain with ambulation from a lumbar radiculopathy Primary Care Physician: Sixto Kay MD Skilled Need: Nursing to monitor respiratory status, assist with wound care and monitor volume status. Physical and occupational therapy to improve strength and endurance - Discharge Diagnosis/Problem(s) (1) Diastolic congestive heart failure, NYHA class 3 SNOMED Code(s): 971970352, 394521109, 185924387 ICD Code: I50.30 - UNSPECIFIED DIASTOLIC (CONGESTIVE) HEART FAILURE Status : Acute Qualifiers: Congestive heart failure chronicity: acute on chronic Qualified Code(s): I50.33 - Acute on chronic diastolic (congestive) heart failure (2) Chronic respiratory failure with hypercapnia Status: Acute (3) Obstructive sleep apnea SNOMED Code(s): 46896520 ICD Code: G47.33 - OBSTRUCTIVE SLEEP APNEA (ADULT) (PEDIATRIC) Status: Acute (4) Hypokalemia SNOMED Code(s): 58403498 ICD Code: E87.6 - HYPOKALEMIA Status: Acute (5) Tobacco dependence SNOMED Code(s): 40586439 ICD Code: F17.200 - NICOTINE DEPENDENCE, UNSPECIFIED, UNCOMPLICATED Status : Chronic (6) COPD (chronic obstructive pulmonary disease) SNOMED Code(s): 19767186 ICD Code: J44.9 - CHRONIC OBSTRUCTIVE PULMONARY DISEASE, UNSPECIFIED Status : Chronic Qualifiers: COPD type: unspecified COPD Qualified Code(s): J44.9 - Chronic obstructive pulmonary disease, unspecified (7) Morbid obesity with BMI of 45.0-49.9, adult SNOMED Code(s): 089758775, 78791499851841 ICD Code: E66.01 - MORBID (SEVERE) OBESITY DUE TO EXCESS CALORIES; Z68.42 - BODY MASS INDEX (BMI) 45.0-49.9, ADULT Status: Chronic (8) CAD (coronary artery disease) SNOMED Code(s): 91298030 ICD Code: I25.10 - ATHSCL HEART DISEASE OF [place] CORONARY ARTERY W/O ANG PCTRS Status: Chronic Qualifiers: Coronary Disease-Associated Artery/Lesion type: [place] artery [place] vs. transplanted heart: [place] heart Associated angina: without angina Qualified Code(s): I25.10 - Atherosclerotic heart disease of [place] coronary artery without angina pectoris (9) CKD (chronic kidney disease), stage III SNOMED Code(s): 701382325 ICD Code: N18.3 - CHRONIC KIDNEY DISEASE, STAGE 3 (MODERATE) Status: Chronic - Patient Summary/Data Consults: Consultations 08/29/19 09:07 PT Evaluation and Treatment [CONS] Routine Please Evaluate and Treat. PT Reason for Consult: Strengthening This query below is only for informational purposes and is not editable. Admission Diagnosis/Problem: Edema of lower extremity 08/30/19 08:43 OT Evaluation and Treatment [CONS] Routine Please Evaluate and Treat. OT Reason for Consult: ADL's Pending Discharge: Yes Discharge Disposition: Home w Home Health This query below is only for informational purposes and is not editable. Admission Diagnosis/Problem: Edema of lower extremity Hospital Course: Nathaniel presented as a direct admission from the clinic. He has been having increasing difficulty with daytime somnolence, worsening lower extremity edema and worsening dyspnea. He was admitted to the hospital for expedited work-up and treatment of presumed diastolic congestive heart failure exacerbated by untreated obstructive sleep apnea. At the time of presentation he was started on aggressive IV diuretics. Chest x-ray did not show definitive pneumonia but there could have been an atelectasis versus infiltrate change so he was empirically started on antibiotics given his fragile respiratory status. Over the next couple of days he did show some improvement in his respiratory status. He had a mild elevation of the PCO2 on blood gas testing but this remained stable despite diuresis and use of noninvasive ventilation overnight. Symptomatically he was starting to feel little better and his weight was trending down. We continued the aggressive diuresis until his kidney function bumped slightly. At this point we had to hold off on diuresis for today. His kidney function did improve and we were able to resume aggressive diuresis. He has lost significant weight throughout the course of the hospital stay. He has had impressive improvement in his anasarca but still has a fair amount of edema , mostly below the knees at this point. He does continue to require supplemental oxygen but this is a very minimal amount. He did try noninvasive ventilation overnight and initially did not tolerate well but has been doing better as the hospital stay has progressed. Kidney function has remained stable with the aggressive diuresis. He has had intermittent difficulties with hypokalemia which have responded well to the supplementation. He did stay on antibiotics for a few days for the suspected pneumonia but with the power of hindsight I do not believe that he ever had a true pneumonia. I think his respiratory difficulties stemmed from untreated sleep apnea worsening his diastolic heart failure. There may be a component of obesity hypoventilation. From a respiratory and congestive heart failure standpoint the patient is doing much better. We did transition him from metoprolol to carvedilol to help manage his heart failure with LVH noted on the echocardiogram. We have discontinued his nifedipine. Diuretics have been transitioned from his outpatient furosemide to bumetanide which will be continued at the time of discharge. With the help of Shalini we have set him up for a trilogy home ventilator system. He received teaching on the morning of discharge. He was encouraged to use this whenever he is sleeping at night and if he takes a longer nap during the day as well. His kidney function is doing well at the time of discharge and is at baseline. He is interested in home care at the time of discharge. During the hospital stay the patient did develop worsening pain in the lower back that radiated down through the right leg. Radiculopathy was suspected but he was too large for an MRI machine so we did complete a CT scan. This did show some broad-based bulging disks which were thought to be the culprits for his pain. His blood thinners were stopped and the plan was for epidural steroid injections. During the 3 days we had to have him off his blood thinners prior to the injections he was on oral steroids. We have seen significant improvement in the pain as well as his strength while he was on the steroids and after the transition to epidural steroids and stopping his oral steroids. He is not back to baseline yet but has made significant improvements with his strength. I suspect that the bulging disks are a result of recent outpatient falls and trauma to the lower back/lumbar spine. He has repeat injections planned for [address] I did also start him on tamsulosin to help with some urinary urgency type symptoms that I think are consistent with BPH. There may be some contribution from the pain pills he was using for his leg pain leading to BPH with lower urinary tract symptoms. Also addressed during the hospital stay was the patient's mental health. He reports significant depression as well as some anxiety regarding his acute and chronic medical problems. We did increase his citalopram from 20 up to 40 mg. We did also start him on lorazepam to help with the anxiety attacks. Anxiety has been getting better as his medical problems have been improving. I did send him home with a short supply of the lorazepam to help and hopefully he will not need it once his medical situation improves. He may benefit from outpatient follow-up with mental health providers. I believe a large part of this is situational and should improve assuming we can optimize treatment for his medical problems. - Patient Instructions Diet: Low Sodium Activity: As Tolerated Showering/Bathing: May Shower Notify Provider of: Fever, Increased Pain, Nausea and/or Vomiting Other/Special Instructions: 1. You were in the hospital for management of diastolic congestive heart failure with significant lower extremity and abdominal edema. Your condition has been improving with the use of noninvasive positive pressure ventilation as well as diuretic therapy. I suspect that the fluid buildup is because of obstructive sleep apnea and the resulting stress on the body and the heart. I recommend ongoing therapy with the noninvasive ventilator which you should use at night while you are sleeping per the instructions from Shalini. I also recommend that we change your diuretics from furosemide to bumetanide. Please take 2 mg twice daily, once in the morning and once in the midafternoon. Because these medications can lower your potassium level you should take a potassium supplement once daily. To help with the lower extremity edema you could wrap your legs with Petr wraps from the foot to the knee. The left lower leg has an area that is draining some fluid and you can help reduce the drainage by covering the weeping area with a non- adherent dressing and then securing it with Kerlix. These dressings are available at any pharmacy. 2. Please use the Trilogy while you are sleeping at night and if you take a longer nap during the day. Any questions about the machine can be directed to the [facility]. 3. We have increased/changed several medications. --Stop taking metoprolol. Please start taking carvedilol 6.25 mg twice daily in its place. --Stop taking nifedipine. --Increase your citalopram (Celexa) from 20 mg daily to 40 mg daily. --Start taking bumetanide (Bumex) 2 mg twice daily. Stop taking furosemide (old water pill). --Use lorazepam 0.5 mg as needed for anxiety attacks. --Use hydromorphone 2 mg as needed for moderate or severe pain in the right hip and leg. You may use acetaminophen for mild pain. 4. I have placed a referral to home health care services. They will help ease your transition home by providing nursing conical therapy at occupational services. 5. Follow up as scheduled with Dr. Kay and with the nurse power equipment technology instructor for repeat steroid injections. - Discharge Plan *PRESCRIPTION DRUG MONITORING PROGRAM REVIEWED*: Not Applicable *COPY OF PRESCRIPTION DRUG MONITORING REPORT IN PATIENT MATILDE: Not Applicable Prescriptions/Med Rec: Bumetanide [Bumex] 2 mg PO BID #60 tab carvediloL [Coreg] 6.25 mg PO BID #60 tablet Citalopram Hydrobromide [Celexa] 40 mg PO DAILY #60 tablet HYDROmorphone [Dilaudid] 2 mg PO Q4H PRN #15 tablet PRN Reason: Pain LORazepam 0.5 mg PO Q6H PRN #15 tab PRN Reason: Anxiety Potassium Chloride 20 meq PO DAILY #30 tab.er.prt Tamsulosin [Flomax] 0.4 mg PO PCBREAKFAST #30 cap.er Home Medications: Home Meds Latanoprost [Xalatan 0.005% Ophth Soln] 1 drop EYEBOTH BEDTIME 02/03/14 [History ] Multivitamin [Multivitamins] 1 each PO DAILY 02/03/14 [History] Simvastatin [Zocor] 20 mg PO BEDTIME 02/07/14 [History] ClonazePAM [KlonoPIN] 0.5 mg PO BEDTIME PRN 08/03/19 [History] Losartan [Cozaar] 25 mg PO DAILY 08/03/19 [History] Melatonin 5 mg PO BEDTIME 08/03/19 [History] Rivaroxaban [Xarelto] 20 mg PO QPM 08/03/19 [History] Zolpidem Tartrate 10 mg PO BEDTIME 08/03/19 [History] Albuterol/Ipratropium [DuoNeb 3.0-0.5 MG/3 ML] 1 vial INH Q4H PRN 08/25/19 [ History] Bumetanide [Bumex] 2 mg PO BID #60 tab 09/05/19 [Rx] Citalopram Hydrobromide [Celexa] 40 mg PO DAILY #60 tablet 09/05/19 [Rx] HYDROmorphone [Dilaudid] 2 mg PO Q4H PRN #15 tablet 09/05/19 [Rx] LORazepam 0.5 mg PO Q6H PRN #15 tab 09/05/19 [Rx] Potassium Chloride 20 meq PO DAILY #30 tab.er.prt 09/05/19 [Rx] Tamsulosin [Flomax] 0.4 mg PO PCBREAKFAST #30 cap.er 09/05/19 [Rx] carvediloL [Coreg] 6.25 mg PO BID #60 tablet 09/05/19 [Rx] Oxygen Therapy Mode: Nasal Cannula Patient Handouts: Coping with Quitting Smoking, Steps to Quit Smoking Referrals: Sixto Kay MD [Primary Care Provider] - 09/11/19 1:00 pm (Please arrive 15 minutes early to register for your appointment. ) Saturnino Wright, GUSTAVO [FISHERIES DIVER] - 09/27/19 9:15 am (Epideral Steroid Injection (AMY) in Automotive Customer Experience Advisor Unit at [facility]. No blood thinner wednesday, wednesday, or wednesday prior Arrive 15 minutes early to register ) - Discharge Summary/Plan Comment DC Time >30 min.: Yes (50 - setting up [facility] and Trilogy from [facility]) - Patient Data Vitals - Most Recent: Last Vital Signs Temp 36.8 C 09/05/19 07:00 Pulse 93 09/05/19 07:18 Resp 18 09/05/19 07:00 BP 145/84 H 09/05/19 08:22 Pulse Ox 92 L 09/05/19 07:00 Weight - Most Recent: 145.013 kg I&O - Last 24 hours: Intake & Output 09/04/19 09/05/19 09/05/19 22:59 06:59 14:59 Intake Total 1000 600 240 Balance 1000 600 240 Lab Results - Last 24 hrs: Laboratory Results - last 24 hr 09/05/19 Range/Units 05:38 Sodium 136 L (140-148) mmol/L Potassium 3.5 L (3.6-5.2) mmol/L Chloride 97 L (100-108) mmol/L Carbon Dioxide 33 H (21-32) mmol/L Anion Gap 9.5 (5.0-14.0) mmol/L BUN 45 H (7-18) mg/dL Creatinine 1.3 (0.8-1.3) mg/dL Est Cr Clr Drug Dosing 53.95 mL/min Estimated GFR (MDRD) 54 L (>60) Glucose 96 (74-106) mg/dL Calcium 8.9 (8.5-10.1) mg/dL Med Orders - Current: Current Medications Acetaminophen (Tylenol) 650 mg PO Q4H PRN PRN Reason: Pain (Mild 1-3)/fever Last Admin: 09/02/19 21:11 Dose: 650 mg Albuterol (Proventil Neb Soln) 2.5 mg NEB Q4H PRN PRN Reason: Shortness Of Breath/wheezing Albuterol/Ipratropium (Duoneb 3.0-0.5 Mg/3 Ml) 3 ml NEB QIDRT VANESSA Last Admin: 09/05/19 07:23 Dose: 3 ml Bumetanide (Bumex) 2 mg PO BIDDIURETIC VANESSA Carvedilol (Coreg) 6.25 mg PO BID VANESSA Citalopram Hydrobromide (Celexa) 40 mg PO DAILY VANESSA Last Admin: 09/05/19 08:22 Dose: 40 mg Clonazepam (Klonopin) 0.5 mg PO BEDTIME PRN PRN Reason: Anxiety Last Admin: 08/29/19 22:53 Dose: 0.5 mg Hydromorphone HCl (Dilaudid) 2 - 4 mg PO Q3H PRN PRN Reason: Pain Last Admin: 09/04/19 15:43 Dose: 2 mg Latanoprost (Xalatan 0.005% Ophth Soln) 0 ml EYEBOTH BEDTIME VANESSA Last Admin: 09/04/19 20:47 Dose: 1 drop Lorazepam (Ativan) 0.5 mg IVPUSH Q4H PRN PRN Reason: Severe anxiety Last Admin: 08/29/19 16:47 Dose: 0.5 mg Lorazepam (Ativan) 0.5 mg PO Q4H PRN PRN Reason: Mild to Moderate anxiety Last Admin: 09/03/19 23:20 Dose: 0.5 mg Losartan Potassium (Cozaar) 25 mg PO DAILY [facility] Last Admin: 09/05/19 08:22 Dose: 25 mg Magnesium Hydroxide (Milk Of Magnesia) 30 ml PO Q4H PRN PRN Reason: Constipation Last Admin: 09/03/19 21:32 Dose: 30 ml Melatonin (Melatonin) 6 mg PO BEDTIME [facility] Last Admin: 09/04/19 20:47 Dose: 6 mg Nicotine (Habitrol) 21 mg TRDERM DAILY [facility] Last Admin: 09/05/19 08:23 Dose: 21 mg Nicotine Polacrilex (Nicorelief) 2 mg CHEW Q1H PRN PRN Reason: Other Polyethylene Glycol (Miralax) 17 gm PO DAILY PRN PRN Reason: Constipation Last Admin: 09/03/19 08:08 Dose: 17 gm Rivaroxaban (Xarelto) 20 mg PO WITHDINNER [facility] Last Admin: 09/04/19 17:55 Dose: 20 mg Sodium Chloride (Saline Flush) 10 ml FLUSH ASDIRECTED PRN PRN Reason: Keep Vein Open Last Admin: 08/29/19 08:49 Dose: 10 ml Tamsulosin HCl (Flomax) 0.4 mg PO PCBREAKFAST [facility] Last Admin: 09/05/19 08:22 Dose: 0.4 mg Discontinued Medications Apixaban (Eliquis) 5 mg PO BID [facility] Bisacodyl (Dulcolax) 10 mg RECTAL ONETIME ONE Stop: 09/03/19 19:38 Last Admin: 09/03/19 20:00 Dose: 10 mg Bumetanide (Bumex) 4 mg IVPUSH ONETIME ONE Stop: 08/25/19 14:01 Last Admin: 08/25/19 13:56 Dose: 4 mg Bumetanide (Bumex) 2 mg IVPUSH ONETIME ONE Stop: 08/26/19 09:01 Last Admin: 08/26/19 09:39 Dose: 2 mg Bumetanide (Bumex) 2 mg IVPUSH Q12H [facility] Last Admin: 08/30/19 06:09 Dose: 2 mg Bumetanide (Bumex) 2 mg IVPUSH ONETIME ONE Stop: 08/27/19 09:01 Last Admin: 08/27/19 08:56 Dose: 2 mg Bumetanide (Bumex) 2 mg IVPUSH ONETIME ONE Stop: 09/01/19 09:31 Last Admin: 09/01/19 10:30 Dose: 2 mg Bumetanide (Bumex) 2 mg IVPUSH ONETIME ONE Stop: 09/02/19 09:31 Last Admin: 09/02/19 09:45 Dose: 2 mg Bumetanide (Bumex) 1 mg IVPUSH ONETIME ONE Stop: 09/02/19 18:01 Last Admin: 09/02/19 17:24 Dose: 1 mg Bumetanide (Bumex) 2 mg IVPUSH Q12H VANESSA Stop: 09/03/19 23:01 Last Admin: 09/03/19 23:11 Dose: 2 mg Bumetanide (Bumex) 1 mg PO BIDDIURETIC [facility] Last Admin: 09/05/19 07:45 Dose: 1 mg Bupivacaine HCl (Sensorcaine-Mpf 0.25%) Confirm Administered Dose 10 ml .ROUTE .STK-MED ONE Stop: 09/03/19 08:57 Citalopram Hydrobromide (Celexa) 20 mg PO DAILY [facility] Last Admin: 08/26/19 09:02 Dose: 20 mg Dexamethasone (Dexamethasone) 8 mg PO ONETIME ONE Stop: 08/31/19 16:31 Last Admin: 08/31/19 17:21 Dose: 8 mg Dexamethasone (Dexamethasone) 4 mg PO BID [facility] Stop: 09/04/19 10:00 Last Admin: 09/04/19 09:10 Dose: 4 mg Gabapentin (Neurontin) 100 mg PO ONETIME ONE Stop: 08/29/19 09:36 Last Admin: 08/29/19 10:16 Dose: 100 mg Gabapentin (Neurontin) 300 mg PO BEDTIME [facility] Last Admin: 09/01/19 21:10 Dose: 300 mg Levofloxacin/Dextrose 750 mg/ (Premix) 150 mls @ 100 mls/hr IV Q24H [facility] Last Admin: 08/27/19 19:51 Dose: 100 mls/hr Levofloxacin 250 mg/ (Levofloxacin 500 mg) 750 mg PO Q24H [facility] Stop: 08/30/19 20:01 Last Admin: 08/29/19 20:13 Dose: 750 mg Lidocaine HCl (Xylocaine 1%) Confirm Administered Dose 20 ml .ROUTE .STK-MED ONE Stop: 09/03/19 08:59 Methylprednisolone Acetate (Depo-Medrol) Confirm Administered Dose 80 mg .ROUTE .STK-MED ONE Stop: 09/03/19 08:57 Metoprolol Tartrate (Lopressor) 25 mg PO BID [facility] Last Admin: 08/28/19 08:44 Dose: 25 mg Oxycodone HCl (Oxycodone) 5 mg PO Q4H PRN PRN Reason: Pain Last Admin: 09/01/19 05:41 Dose: 5 mg Potassium Chloride (Klor-Con M20) 40 meq PO ONETIME ONE Stop: 08/26/19 09:01 Last Admin: 08/26/19 09:03 Dose: 40 meq Potassium Chloride (Klor-Con M20) 40 meq PO ONETIME ONE Stop: 08/26/19 17:01 Last Admin: 08/26/19 17:17 Dose: 40 meq Potassium Chloride (Klor-Con M20) 40 meq PO ONETIME ONE Stop: 08/27/19 08:46 Last Admin: 08/27/19 08:37 Dose: 40 meq Potassium Chloride (Klor-Con M20) 40 meq PO ONETIME ONE Stop: 08/27/19 12:01 Last Admin: 08/27/19 12:32 Dose: 40 meq Potassium Chloride (Klor-Con M20) 40 meq PO ONETIME ONE Stop: 08/27/19 17:01 Last Admin: 08/27/19 17:29 Dose: 40 meq Potassium Chloride (Klor-Con M20) 40 meq PO ONETIME ONE Stop: 08/31/19 09:31 Last Admin: 08/31/19 09:19 Dose: 40 meq Potassium Chloride (Klor-Con M20) 40 meq PO ONETIME ONE Stop: 09/03/19 12:01 Last Admin: 09/03/19 11:20 Dose: 40 meq Potassium Chloride (Klor-Con M20) 40 meq PO ONETIME ONE Stop: 09/05/19 09:01 [facility]) [facility] Last Admin: 08/30/19 17:32 Dose: 20 mg Tamsulosin HCl (Flomax) 0.4 mg PO ONETIME ONE Stop: 08/30/19 10:31 Last Admin: 08/30/19 11:05 Dose: 0.4 mg - Exam Quality Assessment: Reports: Supplemental Oxygen General: Reports: Alert, Oriented, Cooperative, No Acute Distress Lungs: Reports: Normal Respiratory Effort GI/Abdominal Exam: Soft, No Distention Extremities: Pedal Edema Psy/Mental Status: Reports: Alert, Normal Affect
[2019-09-05 10:20] VITALS: PULSE 103
[2019-09-05] MEDS ORDERED: Bumetanide 1 MG Tab PO SCH (14:00)
== END 2019-09-05 10:15 | disposition home health service (06) | DRG 291 ==
LOC: JP.MS 11:37
PROVIDERS: ADMIT Hospitalist; ATTEND Internal Medicine
PROC: 5A09457 Assistance with Respiratory Ventilation, 24-96 Consecutive Hours, Continuous Positive Airway Pressure (ICD-10-PCS; principal; 2019-08-25)
DX: I13.0 Hypertensive heart and chronic kidney disease with heart failure and stage 1 through stage 4 chronic kidney disease, or unspecified chronic kidney disease (principal); I50.33 Acute on chronic diastolic (congestive) heart failure; J96.22 Acute and chronic respiratory failure with hypercapnia; J96.21 Acute and chronic respiratory failure with hypoxia; Z68.42 Body mass index [BMI] 45.0-49.9, adult; J98.11 Atelectasis; E66.2 Morbid (severe) obesity with alveolar hypoventilation; G47.33 Obstructive sleep apnea (adult) (pediatric); E87.6 Hypokalemia; F17.210 Nicotine dependence, cigarettes, uncomplicated; I25.10 Atherosclerotic heart disease of native coronary artery without angina pectoris; J44.9 Chronic obstructive pulmonary disease, unspecified; N18.3 Chronic kidney disease, stage 3 (moderate); M51.16 Intervertebral disc disorders with radiculopathy, lumbar region; R29.6 Repeated falls; N40.1 Benign prostatic hyperplasia with lower urinary tract symptoms; R39.15 Urgency of urination; F32.9 Major depressive disorder, single episode, unspecified; H54.7 Unspecified visual loss; H91.90 Unspecified hearing loss, unspecified ear; E78.00 Pure hypercholesterolemia, unspecified; I73.9 Peripheral vascular disease, unspecified; R33.8 Other retention of urine; I08.1 Rheumatic disorders of both mitral and tricuspid valves; F41.0 Panic disorder [episodic paroxysmal anxiety]; Z79.899 Other long term (current) drug therapy; Z88.1 Allergy status to other antibiotic agents; Z95.5 Presence of coronary angioplasty implant and graft; Z79.01 Long term (current) use of anticoagulants; Z85.828 Personal history of other malignant neoplasm of skin; Z98.890 Other specified postprocedural states
CPT/HCPCS: 36415; 36600; 51702; 71045; 71046; 72131; 72192; 80048; 80053; 81001; 82803; 83735; 84145; 84443; 85025; 85027; 86140; 87040; 87086; 93306; 94640; 94660; 94762; 97110-GP; 97140-GP; 97162-GP; 97165-GO; 97530-GP; 97535-GP; A9270-GY; J1040; J1956; J2001; J2060; J3490; J7620-GY; J8540

== ENCOUNTER 2020-01-24 12:13 | Inpatient (IN) | payer MEDICARE, BC ==
[2020-01-24] MEDS ORDERED: Acetaminophen 325 MG Tab PO PRN (12:24)
[2020-01-24] MEDS ORDERED: Ondansetron 4 MG/2 ML SDV IV PRN (12:24)
[2020-01-24] MEDS ORDERED: Polyethylene Glycol 3350 Powder 17 GM Packet PO PRN (12:24)
[2020-01-24] MEDS ORDERED: Sodium Chloride 0.9% 10 ML Syringe FLUSH PRN (12:31)
--- NOTE | 2020-01-24 12:36 | PCM.HP.2 ---
H&P History of Present Illness - General Date of Service: 01/24/20 Admit Problem/Dx: Admission Diagnosis/Problem Admission Diagnosis/Problem CHF, Congestive heart failure Source of Information: Patient, Old Records, Provider, RN Notes Reviewed History Limitations: Reports: No Limitations - History of Present Illness Initial Comments - Free Text/Narative: Mr. Wilson is a 69-year-old gentleman who was admitted as a direct admission from the clinic with a recent history of increased shortness of breath and increase in peripheral edema. He was also found to have evidence of acute kidney injury and worsening anemia. He has a known history of pulmonary hypertension and underlying COPD. There is a likely component of diastolic congestive heart failure. Most recent echocardiogram obtained in August 2019 showed preserved left ventricular systolic function and right ventricular function. He had significant concentric left ventricular hypertrophy, they were unable to assess diastolic function at that time. He has experienced a 30 pound weight gain over the past several weeks and on evaluation the clinic today was noted to have a hemoglobin of 7.4 with a normal MCV and elevated creatinine from baseline of 3.2. He denies fevers, chills, sweats or chest pain. - Related Data Allergies/Adverse Reactions: Allergies Allergy/AdvReac Type Severity Reaction Status Date / Time cephalexin [From Keflex] Allergy Intermediate Swelling Verified 11/15/19 11:47 Home Medications: Home Meds Latanoprost [Xalatan 0.005% Ophth Soln] 1 drop EYEBOTH BEDTIME 02/03/14 [History ] Multivitamin [Multivitamins] 1 each PO DAILY 02/03/14 [History] Simvastatin [Zocor] 20 mg PO BEDTIME 02/07/14 [History] ClonazePAM [KlonoPIN] 1 mg PO BEDTIME PRN 08/03/19 [History] Losartan [Cozaar] 25 mg PO DAILY 08/03/19 [History] Melatonin 5 mg PO BEDTIME 08/03/19 [History] Rivaroxaban [Xarelto] 20 mg PO QPM 08/03/19 [History] Albuterol/Ipratropium [DuoNeb 3.0-0.5 MG/3 ML] 1 vial INH Q4H PRN 08/25/19 [ History] Bumetanide [Bumex] 2 mg PO BID #60 tab 09/05/19 [Rx] Citalopram Hydrobromide [Celexa] 40 mg PO DAILY #60 tablet 09/05/19 [Rx] Potassium Chloride 20 meq PO DAILY #30 tab.er.prt 09/05/19 [Rx] carvediloL [Coreg] 6.25 mg PO BID #60 tablet 09/05/19 [Rx] HYDROmorphone [Dilaudid] 2 mg PO Q4H PRN #20 tab 09/16/19 [Rx] Albuterol [Ventolin HFA] 2 inh IH Q4H PRN 01/24/20 [History] Amiodarone HCl [Pacerone] 200 mg PO DAILY 01/24/20 [History] Brimonidine/Timolol [Combigan 0.2%/0.5% Ophth Soln] 1 drop EYEBOTH BID 01/24/20 [History] Cyclobenzaprine [Flexeril] 10 mg PO BID PRN 01/24/20 [History] Latanoprost [Xalatan 0.005% Ophth Soln] 1 drop EYEBOTH BEDTIME 01/24/20 [History ] Past Medical History HEENT History: Reports: Hard of Hearing, Impaired Vision Cardiovascular History: Reports: CAD, Heart Failure, High Cholesterol, Hypertension, PVD, Stents Respiratory History: Reports: COPD, Sleep Apnea, SOB Musculoskeletal History: Reports: None Psychiatric History: Reports: Anxiety, Depression Endocrine/Metabolic History: Reports: Obesity/BMI 30+ Hematologic History: Reports: Anticoagulation Therapy, Blood Transfusion(s) Immunologic History: Reports: Other (See Below) Other Immunologic History: radiation 2005 Oncologic (Cancer) History: Reports: Basal Cell Carcinoma 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 Dermatologic History: Reports: None - Infectious Disease History Infectious Disease History: Reports: Chicken Pox, Measles, Mumps - Past Surgical History Head Surgeries/Procedures: Reports: None HEENT Surgical History: Reports: None Cardiovascular Surgical History: Reports: Coronary Artery Stent Respiratory Surgical History: Reports: None GI Surgical History: Reports: Colonoscopy Endocrine Surgical History: Reports: None Musculoskeletal Surgical History: Reports: Other (See Below) Other Musculoskeletal Surgeries/Procedures:: right leg, right thumb, knee surgery Oncologic Surgical History: Reports: None Dermatological Surgical History: Reports: Skin Biopsy, Skin Graft Social & Family History - Family History Family Medical History: Noncontributory - Tobacco Use Smoking Status *Q: Former Smoker Used Tobacco, but Quit: No - Caffeine Use Caffeine Use: Reports: Coffee, Soda - Recreational Drug Use Recreational Drug Use: No H&P Review of Systems - Review of Systems: Review Of Systems: See Below General: Reports: Weakness, Fatigue. Denies: Fever, Chills HEENT: Reports: No Symptoms Pulmonary: Reports: Shortness of Breath. Denies: Wheezing, Pleuritic Chest Pain , Cough, Sputum, Hemoptysis Cardiovascular: Reports: Dyspnea on Exertion, Edema. Denies: Chest Pain, Palpitations, Orthopnea, PND, Lightheadedness Gastrointestinal: Reports: No Symptoms Genitourinary: Reports: No Symptoms Musculoskeletal: Reports: No Symptoms Skin: Reports: No Symptoms Psychiatric: Reports: No Symptoms Neurological: Reports: No Symptoms Hematologic/Lymphatic: Reports: No Symptoms Immunologic: Reports: No Symptoms Exam - Exam Exam: See Below - Vital Signs Weight: 326 lb 12.8 oz - Exam Quality Assessment: Supplemental Oxygen, DVT Prophylaxis General: Alert, Oriented, Cooperative, Mild Distress HEENT: Conjunctiva Clear, Hearing Intact, Mucosa Moist & [place], Normal Nasal Septum, Posterior Pharynx Clear, Pupils Equal Neck: Supple, Trachea Midline, +2 Carotid Pulse wo Bruit Lungs: Clear to Auscultation, Normal Respiratory Effort, Decreased Breath Sounds Cardiovascular: Regular Rate, Regular Rhythm, Normal S1, Normal S2. No: Systolic Murmur, Diastolic Murmur GI/Abdominal Exam: Soft, Non-Tender, No Organomegaly, No Distention Extremities: Non-Tender, Pedal Edema Skin: Warm, Dry, Intact Neurological: Cranial Nerves Intact, Strength Equal Bilateral, Normal Speech, Normal Tone, Sensation Intact. No: Focal Deficit Neuro Extensive - Mental Status: Alert, Oriented x3, Normal Mood/Affect, Normal Cognition, Memory Intact *Q Meaningful Use (ADM) - VTE Risk Assess *Q Each Risk Factor Represents 1 Point: Swollen Legs, Current, Obesity ( BMI > 25 kg/m2), Congestive heart failure (CHF), Abnormal Pulmonary Function (COPD) Total Score 1 Point Risk Factors: 4 Each Risk Factor Represents 2 Points: Age 60 - 74 Years Total Score 2 Point Risk Factors: 2 Each Risk Factor Represents 3 Points: None Total Score 3 Point Risk Factors: 0 Each Risk Factor Represents 5 Points: None Total Score 5 Point Risk Factors: 0 Venous Thromboembolism Risk Factor Score *Q: 6 Problem List Initiated/Reviewed/Updated: Yes Orders Last 24hrs: Active Orders 24 hr Category Date Time Status Patient Status [ADT] Routine ADT 01/24/20 12:25 Ordered Ambulate [RC] QID Care 01/24/20 12:25 Ordered Cardiac Monitoring [RC] .As Directed Care 01/24/20 12:25 Ordered Height and Weight [RC] DAILY Care 01/24/20 12:25 Ordered Intake and Output [RC] QSHIFT Care 01/24/20 12:25 Ordered Notify Provider Vital Signs [RC] ASDIRECTED Care 01/24/20 12:25 Ordered Oxygen Therapy [RC] PRN Care 01/24/20 12:25 Ordered Up With Assistance [RC] ASDIRECTED Care 01/24/20 12:24 Ordered Up to Chair [RC] QID Care 01/24/20 12:25 Ordered VTE/DVT Education [RC] Per Unit Routine Care 01/24/20 12:25 Ordered Vital Signs [RC] Q4H Care 01/24/20 12:25 Ordered PT Evaluation and Treatment [CONS] Routine Cons 01/24/20 12:31 Ordered 2 Gram Sodium Diet [DIET] Diet 01/24/20 Lunch Ordered CBC WITH AUTO DIFF [HEME] AM Lab 01/25/20 05:11 Ordered COMPREHENSIVE METABOLIC PN,CMP [CHEM] AM Lab 01/25/20 05:11 Ordered MAGNESIUM [CHEM] AM Lab 01/25/20 05:11 Ordered RED BLOOD CELLS LP [BBK] Urgent Lab 01/24/20 12:35 Ordered TYPE AND SCREEN [BBK] Routine Lab 01/24/20 12:35 Ordered TYPE AND SCREEN [BBK] Urgent Lab 01/24/20 12:35 Ordered Acetaminophen [Tylenol] Med 01/24/20 12:24 Ordered 650 mg PO Q4H PRN Bumetanide [Bumex] Med 01/24/20 12:34 Once 4 mg IVPUSH ONETIME ONE Enoxaparin [Lovenox] Med 01/24/20 12:30 Ordered 30 mg SUBCUT DAILY Ondansetron [Zofran] Med 01/24/20 12:24 Ordered 4 mg IV Q4H PRN Sodium Chloride 0.9% [Saline Flush] Med 01/24/20 12:31 Ordered 10 ml FLUSH ASDIRECTED PRN polyethylene glycoL 3350 [MiraLAX] Med 01/24/20 12:24 Ordered 17 gm PO DAILY PRN Saline Lock Insert [OM.PC] Routine Oth 01/24/20 12:24 Ordered Transfuse Red Blood Cells [COMM] Urgent Oth 01/24/20 12:35 Ordered Resuscitation Status Routine Resus Stat 01/24/20 12:24 Ordered Medication Orders Acetaminophen (Tylenol) 650 mg PO Q4H PRN PRN Reason: Pain (Mild 1-3)/fever Bumetanide (Bumex) 4 mg IVPUSH ONETIME ONE Stop: 01/24/20 12:35 Enoxaparin Sodium (Lovenox) 30 mg SUBCUT DAILY VANESSA Ondansetron HCl (Zofran) 4 mg IV Q4H PRN PRN Reason: Nausea/Vomiting Polyethylene Glycol (Miralax) 17 gm PO DAILY PRN PRN Reason: Constipation Sodium Chloride (Saline Flush) 10 ml FLUSH ASDIRECTED PRN PRN Reason: Keep Vein Open Assessment/Plan Comment:: ASSESSMENT AND PLAN DIASTOLIC CONGESTIVE HEART FAILURE-most recent echocardiogram 5 months ago showed normal left ventricular systolic function, evidence of pulmonary hypertension, normal right ventricular function, they were unable to assess specifically for diastolic heart failure. History of 30 pound weight gain over the past few weeks. -2 g sodium diet -Bumex 4 mg IV now, reassess in a.m. PULMONARY HYPERTENSION-likely contributing to peripheral edema -Management as above CHRONIC KIDNEY DISEASE STAGE III-with acute exacerbation and decrease in GFR, creatinine at the clinic elevated at 3.2. -Closely monitor renal function with diuresis ANEMIA-likely multifactorial, at least some of this is secondary to kidney disease. Iron found to be low, normal MCV. -Transfuse 1 unit of red blood cells -Reassess hemoglobin in a.m. -Consider iron replacement -Consider EGD and colonoscopy when he is medically stable MAINTENANCE ISSUES -DVT prophylaxis; Lovenox 30 mg subcu daily -GI prophylaxis; Protonix -Pena catheter; not indicated -Nutrition; 2 g sodium diet -Nicotine dependence; not required CODE STATUS-FULL CODE ADMISSION STATUS-patient will be admitted to inpatient status, expect at least a 2 night hospital stay for evaluation and management of problems as outlined above. At the time of this admission I do not reasonably expected evaluation and management of this problem will require more than a 96 hour hospital stay. DISPOSITION-anticipate discharge to home after the hospital stay. PRIMARY CARE PROVIDER-Dr. Kay - Mortality Measure Prognosis:: Good
[2020-01-24] MEDS ORDERED: Bumetanide 1 MG/4 ML MDV IVPUSH ONE (13:00)
[2020-01-24] MEDS ORDERED: BUMETANIDE IV ONE ×2 (13:30)
[2020-01-24] MEDS ORDERED: SODIUM CHLORIDE 0.9% IV ONE ×2 (13:30)
[2020-01-24] MEDS ORDERED: Enoxaparin 30 MG/0.3 ML Syringe SUBCUT SCH (16:00)
[2020-01-24] MEDS: Pantoprazole 40 MG Tab.CR PO SCH (16:56)
[2020-01-24] MEDS: Melatonin 3 MG Tab PO SCH (21:53)
[2020-01-24] MEDS: ClonazePAM 1 MG Tab PO PRN (21:53)
[2020-01-24] MEDS: Simvastatin 20 MG Tab PO SCH (21:53)
[2020-01-24] MEDS: Losartan 25 MG Tab PO SCH (21:54)
[2020-01-24] MEDS: Carvedilol 6.25 MG Tab PO SCH (21:54)
[2020-01-24] MEDS: Amiodarone 200 MG Tab PO SCH (21:55)
[2020-01-25] MEDS: Pantoprazole 40 MG Tab.CR PO SCH ×2 (08:24→16:49)
[2020-01-25] MEDS: Carvedilol 6.25 MG Tab PO SCH ×2 (08:24→16:49)
--- NOTE | 2020-01-25 13:00 | PCM.PN ---
- General Info Date of Service: 01/25/20 Subjective Update: Mr. Wilson has noted some modest improvement in shortness of breath with diuresis yesterday. He is incontinent of urine so intake and output are not able to be accurately assessed. Continues to experience significant peripheral edema. Creatinine is up modestly from yesterday. Functional Status: Reports: Tolerating Diet, Urinating - Review of Systems General: Reports: Weakness. Denies: Fever, Chills Pulmonary: Reports: Shortness of Breath. Denies: Pleuritic Chest Pain, Cough, Sputum, Hemoptysis, Wheezing Cardiovascular: Reports: Dyspnea on Exertion, Edema. Denies: Chest Pain, Palpitations, Orthopnea, PND Gastrointestinal: Reports: No Symptoms - Patient Data Vitals - Most Recent: Last Vital Signs Temp 95.0 F L 01/25/20 08:21 Pulse 65 01/25/20 08:24 Resp 18 01/25/20 08:21 BP 156/69 H 01/25/20 08:24 Pulse Ox 95 01/25/20 08:21 Weight - Most Recent: 326 lb I&O - Last 24 Hours: Intake & Output 01/24/20 01/25/20 01/25/20 22:59 06:59 14:59 Intake Total 1392 500 240 Output Total 1550 Balance -158 500 240 Lab Results Last 24 Hours: Laboratory Results - last 24 hr 01/24/20 01/24/20 01/24/20 Range/Units 13:04 13:04 13:04 WBC (4.5-11.0) K/uL RBC (4.30-5.90) M/uL Hgb (12.0-15.0) g/dL Hct (40.0-54.0) % MCV (80-98) fL MCH (27-31) pg MCHC (32-36) % Plt Count (150-400) K/uL Neut % (Auto) (36-66) % Lymph % (Auto) (24-44) % [place] % (Auto) (2-6) % Eos % (Auto) (2-4) % Baso % (Auto) (0-1) % Percent Retic 3.6 H (0.5-1.5) % Sodium (140-148) mmol/L Potassium (3.6-5.2) mmol/L Chloride (100-108) mmol/L Carbon Dioxide (21-32) mmol/L Anion Gap (5.0-14.0) mmol/L BUN (7-18) mg/dL Creatinine (0.8-1.3) mg/dL Est Cr Clr Drug Dosing mL/min Estimated GFR (MDRD) (>60) Glucose (74-106) mg/dL Calcium (8.5-10.1) mg/dL Magnesium (1.8-2.4) mg/dL Iron (65-175) ug/dL TIBC (250-450) ug/dl % Saturation (20-55) % Total Bilirubin (0.2-1.0) mg/dL AST (15-37) U/L ALT (12-78) U/L Alkaline Phosphatase (46-116) U/L Lactate Dehydrogenase 206 (85-227) U/L Total Protein (6.4-8.2) g/dL Albumin (3.4-5.0) g/dL Globulin (2.3-3.5) g/dL Albumin/Globulin Ratio (1.2-2.2) Vitamin B12 1699 H (193-986) pg/ml Folate > 20.0 (8.6-58.9) ng/ml Blood Type A POSITIVE Gel Antibody Screen Negative Crossmatch See Detail 01/24/20 01/25/20 01/25/20 Range/Units 13:04 05:39 05:39 WBC 7.7 (4.5-11.0) K/uL RBC 3.09 L (4.30-5.90) M/uL Hgb 8.2 L D (12.0-15.0) g/dL Hct 28.4 L (40.0-54.0) % MCV 92 (80-98) fL MCH 27 (27-31) pg MCHC 29 L (32-36) % Plt Count 172 (150-400) K/uL Neut % (Auto) 67 H (36-66) % Lymph % (Auto) 15 L (24-44) % [place] % (Auto) 15 H (2-6) % Eos % (Auto) 3 (2-4) % Baso % (Auto) 0 (0-1) % Percent Retic (0.5-1.5) % Sodium 140 (140-148) mmol/L Potassium 3.8 (3.6-5.2) mmol/L Chloride 104 (100-108) mmol/L Carbon Dioxide 30 (21-32) mmol/L Anion Gap 6.1 (5.0-14.0) mmol/L BUN 72 H D (7-18) mg/dL Creatinine 3.6 H* D (0.8-1.3) mg/dL Est Cr Clr Drug Dosing 20.66 mL/min Estimated GFR (MDRD) 17 L (>60) Glucose 82 (74-106) mg/dL Calcium 8.8 (8.5-10.1) mg/dL Magnesium 2.0 (1.8-2.4) mg/dL Iron 23 L (65-175) ug/dL TIBC 388 (250-450) ug/dl % Saturation 6 L (20-55) % Total Bilirubin 1.5 H D (0.2-1.0) mg/dL AST 24 (15-37) U/L ALT 40 (12-78) U/L Alkaline Phosphatase 85 (46-116) U/L Lactate Dehydrogenase (85-227) U/L Total Protein 7.1 (6.4-8.2) g/dL Albumin 2.8 L (3.4-5.0) g/dL Globulin 4.3 H (2.3-3.5) g/dL Albumin/Globulin Ratio 0.7 L (1.2-2.2) Vitamin B12 (193-986) pg/ml Folate (8.6-58.9) ng/ml Blood Type Gel Antibody Screen Crossmatch Med Orders - Current: Current Medications Acetaminophen (Tylenol) 650 mg PO Q4H PRN PRN Reason: Pain (Mild 1-3)/fever Amiodarone HCl (Cordarone) 200 mg PO [facility]DINNER [facility] Last Admin: 01/24/20 21:55 Dose: 200 mg Carvedilol (Coreg) 6.25 mg PO BIDMEALS [facility] Last Admin: 01/25/20 08:24 Dose: 6.25 mg Clonazepam (Klonopin) 1 mg PO BEDTIME PRN PRN Reason: Anxiety Last Admin: 01/24/20 21:53 Dose: 1 mg Enoxaparin Sodium (Lovenox) 30 mg SUBCUT Q24H [facility] Last Admin: 01/24/20 15:08 Dose: 30 mg Losartan Potassium (Cozaar) 25 mg PO BEDTIME [facility] Last Admin: 01/24/20 21:54 Dose: 25 mg Melatonin (Melatonin) 6 mg PO BEDTIME [facility] Last Admin: 01/24/20 21:53 Dose: 6 mg Ondansetron HCl (Zofran) 4 mg IV Q4H PRN PRN Reason: Nausea/Vomiting Pantoprazole Sodium (Protonix) 40 mg PO BIDAC [facility] Last Admin: 01/25/20 08:24 Dose: 40 mg Polyethylene Glycol (Miralax) 17 gm PO DAILY PRN PRN Reason: Constipation Simvastatin (Zocor) 20 mg PO BEDTIME [facility] Last Admin: 01/24/20 21:53 Dose: 20 mg Sodium Chloride (Saline Flush) 10 ml FLUSH ASDIRECTED PRN PRN Reason: Keep Vein Open Discontinued Medications Bumetanide 16 mg/ Sodium (Chloride) 114 mls @ 228 mls/hr IV ONETIME ONE Stop: 01/24/20 13:59 Bumetanide 4 mg/ Sodium (Chloride) 66 mls @ 132 mls/hr IV ONETIME ONE Stop: 01/24/20 13:59 Last Admin: 01/24/20 13:13 Dose: 132 mls/hr - Exam Quality Assessment: DVT Prophylaxis General: Alert, Oriented, Cooperative, Mild Distress Lungs: Clear to Auscultation, Normal Respiratory Effort, Decreased Breath Sounds Cardiovascular: Regular Rate, Regular Rhythm, No Murmurs GI/Abdominal Exam: Soft, Non-Tender, No Organomegaly, No Distention Extremities: Non-Tender, Pedal Edema Sepsis Event Note - Evaluation Sepsis Screening Result: No Definite Risk - Focused Exam Vital Signs: Vital Signs Temp Pulse Pulse Resp BP BP Pulse Ox 01/25/20 08:24 65 156/69 H 01/25/20 08:21 95.0 F L 74 18 156/68 H 95 01/25/20 03:01 96.4 F L 69 20 137/69 92 L Date Exam was Performed: 01/25/20 Time Exam was Performed: 12:57 - Problem List Review Problem List Initiated/Reviewed/Updated: Yes - My Orders Last 24 Hours: My Active Orders 01/24/20 12:24 Up With Assistance [RC] ASDIRECTED Acetaminophen [Tylenol] 650 mg PO Q4H PRN Ondansetron [Zofran] 4 mg IV Q4H PRN polyethylene glycoL 3350 [MiraLAX] 17 gm PO DAILY PRN Saline Lock Insert [OM.PC] Routine Resuscitation Status Routine 01/24/20 12:25 Patient Status [ADT] Routine Ambulate [RC] QID Cardiac Monitoring [RC] .As Directed Height and Weight [RC] DAILY Intake and Output [RC] Q12H Notify Provider Vital Signs [RC] ASDIRECTED Oxygen Therapy [RC] PRN Up to Chair [RC] QID Vital Signs [RC] Q4H 01/24/20 12:31 PT Evaluation and Treatment [CONS] Routine Sodium Chloride 0.9% [Saline Flush] 10 ml FLUSH ASDIRECTED PRN 01/24/20 12:35 Transfuse Red Blood Cells [COMM] Urgent 01/24/20 16:00 Enoxaparin [Lovenox] 30 mg SUBCUT Q24H 01/24/20 16:30 Pantoprazole [ProTONIX] 40 mg PO BIDAC 01/24/20 Lunch 2 Gram Sodium Diet [DIET] 01/26/20 05:00 BASIC METABOLIC PANEL,BMP [CHEM] Timed CBC WITH AUTO DIFF [HEME] Timed - Plan Plan:: ASSESSMENT AND PLAN DIASTOLIC CONGESTIVE HEART FAILURE-most recent echocardiogram 5 months ago showed normal left ventricular systolic function, evidence of pulmonary hypertension, normal right ventricular function, they were unable to assess specifically for diastolic heart failure. History of 30 pound weight gain over the past few weeks. -2 g sodium diet -Hold diuretic therapy today because of increase in creatinine PULMONARY HYPERTENSION-likely contributing to peripheral edema -Management as above CHRONIC KIDNEY DISEASE STAGE III-with acute exacerbation and decrease in GFR, creatinine at the clinic elevated at 3.2. He now this morning increased to 3.6 , plan to hold diuresis -Closely monitor renal function with diuresis ANEMIA-likely multifactorial, at least some of this is secondary to kidney disease. Iron found to be low, normal MCV. Hemoglobin stable and over 8 following transfusion of 1 unit of red blood cells -Reassess hemoglobin in a.m. -IV iron replacement -Consider EGD and colonoscopy when he is medically stable MAINTENANCE ISSUES -DVT prophylaxis; Lovenox 30 mg subcu daily -GI prophylaxis; Protonix -Pena catheter; not indicated -Nutrition; 2 g sodium diet -Nicotine dependence; not required CODE STATUS-FULL CODE ADMISSION STATUS-patient will be admitted to inpatient status, expect at least a 2 night hospital stay for evaluation and management of problems as outlined above. At the time of this admission I do not reasonably expected evaluation and management of this problem will require more than a 96 hour hospital stay. DISPOSITION-anticipate discharge to home after the hospital stay. PRIMARY CARE PROVIDER-Dr. Kay
[2020-01-25] MEDS ORDERED: Sodium Ferric Gluconate Cmplex 250 MG in Sodium Chloride 0.9% 100 ML IV ONE (14:00)
[2020-01-25] MEDS ORDERED: HYDROmorphone 2 MG Tab PO PRN (14:10)
[2020-01-25] MEDS ORDERED: ClonazePAM 0.5 MG Tab PO PRN (14:10)
[2020-01-25] MEDS ORDERED: Albuterol 8 GM Inhaler INH PRN (14:10)
[2020-01-25] MEDS ORDERED: Nicotine Polacrilex 2 MG Gum CHEW PRN (14:13)
[2020-01-25] MEDS: Nicotine 14 MG/24 Hr Patch TRDERM SCH (15:33)
[2020-01-25] MEDS: Amiodarone 200 MG Tab PO SCH (16:49)
[2020-01-25] MEDS ORDERED: Amiodarone 200 MG Tab PO SCH (17:00)
[2020-01-25] MEDS ORDERED: Rivaroxaban 10 MG Tab PO SCH (17:00)
[2020-01-25] MEDS: Timolol Maleate 0.5% Ophth Soln 5 ML Bottle EYEBOTH SCH ×2 (20:12→20:15)
[2020-01-25] MEDS: Brimonidine 0.2% Ophth Soln 5 ML Bottle EYEBOTH SCH (20:12)
[2020-01-25] MEDS: Melatonin 3 MG Tab PO SCH (20:12)
[2020-01-25] MEDS: Losartan 25 MG Tab PO SCH (20:12)
[2020-01-25] MEDS: Simvastatin 20 MG Tab PO SCH (20:13)
[2020-01-25] MEDS ORDERED: Simvastatin 20 MG Tab PO SCH (21:00)
[2020-01-25] MEDS ORDERED: Latanoprost 0.005% Ophth Soln 2.5 ML Bottle EYEBOTH SCH (21:00)
[2020-01-25] MEDS ORDERED: Losartan 25 MG Tab PO SCH (21:00)
[2020-01-25] MEDS ORDERED: Carvedilol 6.25 MG Tab PO SCH (21:00)
[2020-01-25] MEDS ORDERED: Non-Formulary Medication 1 Each (Melatonin [Melatonin] 5 MG) PO SCH (21:00)
[2020-01-25] MEDS: ClonazePAM 1 MG Tab PO PRN (21:40)
[2020-01-26] MEDS: Pantoprazole 40 MG Tab.CR PO SCH (07:25)
[2020-01-26] MEDS: Carvedilol 6.25 MG Tab PO SCH (07:26)
[2020-01-26] MEDS: Nicotine 14 MG/24 Hr Patch TRDERM SCH (08:55)
[2020-01-26] MEDS: Timolol Maleate 0.5% Ophth Soln 5 ML Bottle EYEBOTH SCH (08:56)
[2020-01-26] MEDS: Brimonidine 0.2% Ophth Soln 5 ML Bottle EYEBOTH SCH (08:56)
[2020-01-26] MEDS ORDERED: Citalopram 20 MG Tab PO SCH (09:00)
[2020-01-26 11:06] VITALS: BP 132/62; PULSE 66
--- NOTE | 2020-01-26 12:20 | PCM.DCSUM1 ---
Discharge Summary - Hospital Course Brief History: Mr. Wilson is a 69-year-old gentleman who was admitted as a direct admission from the clinic for further management of his diastolic heart failure, pulmonary hypertension, increased peripheral edema, acute on chronic kidney disease, and anemia. - Discharge Data Discharge Date: 01/26/20 Discharge Disposition: Home, Self-Care 01 Condition: Poor - Referral to Home Health Primary Care Physician: Sixto Kay MD - Discharge Diagnosis/Problem(s) (1) Anemia SNOMED Code(s): 151663262 ICD Code: D64.9 - ANEMIA, UNSPECIFIED Status: Acute Current Visit: Yes (2) Iron deficiency SNOMED Code(s): 09402913 ICD Code: E61.1 - IRON DEFICIENCY Status: Acute Current Visit: Yes (3) Obstructive sleep apnea SNOMED Code(s): 44028258 ICD Code: G47.33 - OBSTRUCTIVE SLEEP APNEA (ADULT) (PEDIATRIC) Status: Acute Current Visit: No (4) Hypoxia SNOMED Code(s): 554378889 ICD Code: R09.02 - HYPOXEMIA Status: Acute Current Visit: No (5) COPD (chronic obstructive pulmonary disease) SNOMED Code(s): 74793729 ICD Code: J44.9 - CHRONIC OBSTRUCTIVE PULMONARY DISEASE, UNSPECIFIED Status : Chronic Current Visit: No Qualifiers: COPD type: unspecified COPD Qualified Code(s): J44.9 - Chronic obstructive pulmonary disease, unspecified (6) Diastolic congestive heart failure, NYHA class 3 SNOMED Code(s): 305916804, 157882822, 226180242 ICD Code: I50.30 - UNSPECIFIED DIASTOLIC (CONGESTIVE) HEART FAILURE Status : Chronic Current Visit: No Qualifiers: Congestive heart failure chronicity: acute on chronic Qualified Code(s): I50.33 - Acute on chronic diastolic (congestive) heart failure (7) CKD (chronic kidney disease), stage III SNOMED Code(s): 056042180 ICD Code: N18.3 - CHRONIC KIDNEY DISEASE, STAGE 3 (MODERATE) Status: Chronic Current Visit: No - Patient Summary/Data Consults: Consultations 01/24/20 12:31 PT Evaluation and Treatment [CONS] Routine Please Evaluate and Treat. PT Reason for Consult: Weakness This query below is only for informational purposes and is not editable. Hospital Course: Mr. Wilson is a 69-year-old gentleman who was admitted as a direct admission from the clinic with a recent history of increased shortness of breath and increase in peripheral edema. He was also found to have evidence of acute kidney injury and worsening anemia. He has a known history of pulmonary hypertension and underlying COPD. There is a likely component of diastolic congestive heart failure. Most recent echocardiogram obtained in August 2019 showed preserved left ventricular systolic function and right ventricular function. He had significant concentric left ventricular hypertrophy, they were unable to assess diastolic function at that time. He has experienced a 30 pound weight gain over the past several weeks and on evaluation the clinic today was noted to have a hemoglobin of 7.4 with a normal MCV and elevated creatinine from baseline of 3.2. He denies fevers, chills, sweats or chest pain. On admission labs were obtained to evaluate anemia and he was found to have iron deficiency despite his normal MCV. He was transfused 1 unit of red blood cells because of his significant compromise with heart failure and COPD. Following transfusion hemoglobin went up to 8.2 and on the day of discharge was 8.6. He understands that he will need to have further evaluation of his anemia with EGD and colonoscopy once his respiratory status has stabilized. He was given Bumex 4 mg IV on admission and had a very good diuresis, although only modest improvement in peripheral edema. The following day his renal function had worsened with a creatinine up to 3.6 and diuresis was held that day. On the day of discharge patient as well as his Kelsea reported that he had an appointment with dermatology for follow-up of his skin cancer and that he absolutely needed to make it to the appointment because they were unable to get back in for appointment for several months. I did explain to both Nathaniel and Kelsea that we are nowhere near managing the problems that he was admitted with, including his significant fluid overload and acute on chronic kidney injury. I did recommend that he remain hospitalized and we tried to get a sooner follow- up appointment with dermatology at the time of discharge. Both Nathaniel and Kelsea understand that he is leaving the hospital without good resolution of these problems, they are adamant about being discharged so that he can see the baker doughnut in the clinic this afternoon. I have instructed Nathaniel to hold diuretic therapy today and then restart oral diuretics again tomorrow. We will obtain a quick follow-up clinic visit with Dr. Kay on January 28, BMP and CBC should be obtained at the time of follow-up appointment. Because of his iron deficiency he did receive 1 dose of IV iron infusion prior to discharge. Activity will be as tolerated and he will resume a low-sodium diet. He was found to be hypoxic during hospitalization with an oxygen saturation of 88% on room air and will be discharged home with home oxygen 2 L/min via nasal cannula. - Patient Instructions Diet: Low Sodium Activity: As Tolerated Other/Special Instructions: Please arrange for home oxygen 2 L/min via nasal cannula. Please schedule follow-up appointment with Dr. Kay for January 28; BMP and CBC should be obtained at the time of follow-up appointment. - Discharge Plan *PRESCRIPTION DRUG MONITORING PROGRAM REVIEWED*: Not Applicable *COPY OF PRESCRIPTION DRUG MONITORING REPORT IN PATIENT MATILDE: Not Applicable Home Medications: Home Meds Latanoprost [Xalatan 0.005% Ophth Soln] 1 drop EYEBOTH BEDTIME 02/03/14 [History ] Multivitamin [Multivitamins] 1 each PO DAILY 02/03/14 [History] Simvastatin [Zocor] 20 mg PO BEDTIME 02/07/14 [History] ClonazePAM [KlonoPIN] 1 mg PO BEDTIME PRN 08/03/19 [History] Losartan [Cozaar] 25 mg PO BEDTIME 08/03/19 [History] Melatonin 5 mg PO BEDTIME 08/03/19 [History] Rivaroxaban [Xarelto] 20 mg PO QPM 08/03/19 [History] Albuterol/Ipratropium [DuoNeb 3.0-0.5 MG/3 ML] 1 vial INH Q4H PRN 08/25/19 [ History] Bumetanide [Bumex] 2 mg PO BID #60 tab 09/05/19 [Rx] Citalopram Hydrobromide [Celexa] 40 mg PO DAILY #60 tablet 09/05/19 [Rx] Potassium Chloride 20 meq PO DAILY #30 tab.er.prt 09/05/19 [Rx] carvediloL [Coreg] 6.25 mg PO BID #60 tablet 09/05/19 [Rx] HYDROmorphone [Dilaudid] 2 mg PO Q4H PRN #20 tab 09/16/19 [Rx] Albuterol [Ventolin HFA] 2 inh IH Q4H PRN 01/24/20 [History] Amiodarone HCl [Pacerone] 200 mg PO WITHDINNER 01/24/20 [History] Brimonidine/Timolol [Combigan 0.2%/0.5% Ophth Soln] 1 drop EYEBOTH BID 01/24/20 [History] Cyclobenzaprine [Flexeril] 10 mg PO BID PRN 01/24/20 [History] Latanoprost [Xalatan 0.005% Ophth Soln] 1 drop EYEBOTH BEDTIME 01/24/20 [History ] Oxygen Therapy Mode: Nasal Cannula Oxygen Flow Rate (L/min): 2 Maintain SPO2% less than: 93 Maintain SpO2% greater than: 88 Referrals: Sixto Kay MD [Primary Care Provider] - 01/29/20 10:30 am (Please arrive 15 minutes early to register for your appointment.) - Discharge Summary/Plan Comment DC Time >30 min.: No - Patient Data Vitals - Most Recent: Last Vital Signs Temp 95.5 F L 01/26/20 11:05 Pulse 66 01/26/20 11:05 Resp 20 01/26/20 11:05 BP 132/62 01/26/20 11:05 Pulse Ox 88 L 01/26/20 11:58 Weight - Most Recent: 316 lb 12.8 oz I&O - Last 24 hours: Intake & Output 01/25/20 01/26/20 01/26/20 22:59 06:59 14:59 Intake Total 540 1300 Output Total 175 300 Balance 365 1000 Lab Results - Last 24 hrs: Laboratory Results - last 24 hr 01/26/20 01/26/20 Range/Units 04:30 04:30 WBC 8.6 (4.5-11.0) K/uL RBC 3.29 L (4.30-5.90) M/uL Hgb 8.6 L (12.0-15.0) g/dL Hct 30.3 L (40.0-54.0) % MCV 92 (80-98) fL MCH 26 L (27-31) pg MCHC 28 L (32-36) % Plt Count 180 (150-400) K/uL Neut % (Auto) 73 H (36-66) % Lymph % (Auto) 14 L (24-44) % [place] % (Auto) 11 H (2-6) % Eos % (Auto) 2 (2-4) % Baso % (Auto) 0 (0-1) % Sodium 139 L (140-148) mmol/L Potassium 3.9 (3.6-5.2) mmol/L Chloride 103 (100-108) mmol/L Carbon Dioxide 28 (21-32) mmol/L Anion Gap 11.9 (5.0-14.0) mmol/L BUN 70 H (7-18) mg/dL Creatinine 3.4 H (0.8-1.3) mg/dL Est Cr Clr Drug Dosing 23.17 mL/min Estimated GFR (MDRD) 18 L (>60) Glucose 92 (74-106) mg/dL Calcium 8.7 (8.5-10.1) mg/dL Med Orders - Current: Current Medications Acetaminophen (Tylenol) 650 mg PO Q4H PRN PRN Reason: Pain (Mild 1-3)/fever Albuterol (Ventolin Hfa) 0 gm INH Q4H PRN PRN Reason: Dyspnea Amiodarone HCl (Cordarone) 200 mg PO WITHDINNER [facility] Last Admin: 01/25/20 16:49 Dose: 200 mg Brimonidine Tartrate (Alphagan 0.2% Ophth Soln) 0 ml EYEBOTH BID [facility] Last Admin: 01/26/20 08:56 Dose: 1 drop Carvedilol (Coreg) 6.25 mg PO BIDMEALS [facility] Last Admin: 01/26/20 07:26 Dose: 6.25 mg Citalopram Hydrobromide (Celexa) 40 mg PO DAILY [facility] Last Admin: 01/26/20 08:55 Dose: 40 mg Clonazepam (Klonopin) 1 mg PO BEDTIME PRN PRN Reason: Anxiety Last Admin: 01/25/20 21:40 Dose: 1 mg Hydromorphone HCl (Dilaudid) 2 mg PO Q4H PRN PRN Reason: Pain Latanoprost (Xalatan 0.005% Ophth Soln) 0 ml EYEBOTH BEDTIME [facility] Last Admin: 01/25/20 20:13 Dose: 1 drop Losartan Potassium (Cozaar) 25 mg PO BEDTIME [facility] Last Admin: 01/25/20 20:12 Dose: 25 mg Melatonin (Melatonin) 6 mg PO BEDTIME [facility] Last Admin: 01/25/20 20:12 Dose: 6 mg Nicotine (Habitrol) 14 mg TRDERM DAILY [facility] Last Admin: 01/26/20 08:55 Dose: Not Given Nicotine Polacrilex (Nicorelief) 2 mg CHEW Q1H PRN PRN Reason: Other Ondansetron HCl (Zofran) 4 mg IV Q4H PRN PRN Reason: Nausea/Vomiting Pantoprazole Sodium (Protonix) 40 mg PO BIDAC [facility] Last Admin: 01/26/20 07:25 Dose: 40 mg Polyethylene Glycol (Miralax) 17 gm PO DAILY PRN PRN Reason: Constipation Rivaroxaban (Xarelto) 20 mg PO WITHDINNER [facility] Last Admin: 01/25/20 16:49 Dose: 20 mg Simvastatin (Zocor) 20 mg PO BEDTIME [facility] Last Admin: 01/25/20 20:13 Dose: 20 mg Sodium Chloride (Saline Flush) 10 ml FLUSH ASDIRECTED PRN PRN Reason: Keep Vein Open Timolol Maleate (Timoptic 0.5% Ophth Soln) 0 ml EYEBOTH BID [facility] Last Admin: 01/26/20 08:56 Dose: 1 drop Discontinued Medications Enoxaparin Sodium (Lovenox) 30 mg SUBCUT Q24H [facility] Last Admin: 01/24/20 15:08 Dose: 30 mg Bumetanide 16 mg/ Sodium (Chloride) 114 mls @ 228 mls/hr IV ONETIME ONE Stop: 01/24/20 13:59 Bumetanide 4 mg/ Sodium (Chloride) 66 mls @ 132 mls/hr IV ONETIME ONE Stop: 01/24/20 13:59 Last Admin: 01/24/20 13:13 Dose: 132 mls/hr Ferric Sodium Gluconate Complex 250 mg/ Sodium Chloride 120 mls @ 50 mls/hr IV ONETIME ONE Stop: 01/25/20 16:23 Last Admin: 01/25/20 15:35 Dose: 50 mls/hr - Exam General: Reports: Alert, Oriented, Cooperative, Mild Distress Lungs: Reports: Clear to Auscultation, Normal Respiratory Effort, Decreased Breath Sounds Cardiovascular: Reports: Regular Rate, Irregular Rhythm, Murmurs GI/Abdominal Exam: Soft, Non-Tender, No Organomegaly, No Distention Extremities: Non-Tender, Pedal Edema
== END 2020-01-26 15:11 | disposition home or self-care (01) | DRG 291 ==
LOC: JP.MS 12:13
PROVIDERS: ADMIT Hospitalist; ATTEND Hospitalist
PROC: 30233N1 Transfusion of Nonautologous Red Blood Cells into Peripheral Vein, Percutaneous Approach (ICD-10-PCS; principal; 2020-01-24)
DX: I13.0 Hypertensive heart and chronic kidney disease with heart failure and stage 1 through stage 4 chronic kidney disease, or unspecified chronic kidney disease (principal); I50.33 Acute on chronic diastolic (congestive) heart failure; N17.9 Acute kidney failure, unspecified; Z68.41 Body mass index [BMI] 40.0-44.9, adult; I27.20 Pulmonary hypertension, unspecified; D64.9 Anemia, unspecified; G47.33 Obstructive sleep apnea (adult) (pediatric); J44.9 Chronic obstructive pulmonary disease, unspecified; N18.3 Chronic kidney disease, stage 3 (moderate); I25.10 Atherosclerotic heart disease of native coronary artery without angina pectoris; E78.00 Pure hypercholesterolemia, unspecified; I73.9 Peripheral vascular disease, unspecified; F41.9 Anxiety disorder, unspecified; F32.9 Major depressive disorder, single episode, unspecified; E66.9 Obesity, unspecified; E61.1 Iron deficiency; Z79.899 Other long term (current) drug therapy; Z85.828 Personal history of other malignant neoplasm of skin; Z87.891 Personal history of nicotine dependence
CPT/HCPCS: 36415; 36430; 80048; 80053; 82607; 82746; 83550; 83615; 83735; 85025; 85045; 86850; 86900; 86901; 86920; 86922; 97110-GP; 97116-GP; 97162-GP; A9270-GY; J1650; J2916; J3490; J7050; P9016

== ENCOUNTER 2020-01-29 11:43 | Inpatient (IN) | payer MEDICARE, BC ==
[2020-01-29] MEDS ORDERED: Ondansetron 4 MG/2 ML SDV IV PRN (13:09)
[2020-01-29] MEDS ORDERED: Magnesium Hydroxide 400 MG/5 ML Susp 30 ML Cup PO PRN (13:09)
[2020-01-29] MEDS ORDERED: Ondansetron 4 MG Tab.DIS PO PRN (13:09)
[2020-01-29] MEDS ORDERED: Acetaminophen 325 MG Tab PO PRN (13:09)
[2020-01-29] MEDS ORDERED: LORazepam 2 MG/ML SDV IVPUSH PRN (13:09)
[2020-01-29] MEDS ORDERED: Sodium Chloride 0.9% 10 ML Syringe FLUSH PRN (13:09)
[2020-01-29] MEDS ORDERED: Albuterol 0.083% 2.5 MG/3 ML Neb Soln NEB PRN (13:09)
[2020-01-29] MEDS ORDERED: HYDROmorphone 2 MG Tab PO PRN (13:14)
[2020-01-29] MEDS ORDERED: Cyclobenzaprine 10 MG Tab PO PRN (13:16)
--- NOTE | 2020-01-29 13:23 | PCM.HP.2 ---
H&P History of Present Illness - General Date of Service: 01/29/20 Admit Problem/Dx: Admission Diagnosis/Problem Admission Diagnosis/Problem Acute kidney injury Source of Information: Patient, Provider History Limitations: Reports: No Limitations - History of Present Illness Initial Comments - Free Text/Narative: CC: my weight keeps going up HPI: Nathaniel initially went to the clinic for follow-up after a hospital stay last week. Laboratory studies were noted to be abnormal so he was sent to the hospital for further work-up. His creatinine was elevated at 2.7 with a baseline of 1.3. He reports that in general he feels okay. He does report that he gets winded with any activity. He had made strides to the point that he could walk about a half a block but now short of breath with any activity and cannot climb a flight of stairs. His weight is up 2 pounds from 3 days ago and up 30 pounds from several weeks ago. He has not had any chest pain. He does report that his left leg is more swollen than the right and is started to weep some. The legs are not particularly painful at this time. He is not sleeping well at night and has difficulty with consistent use of his CPAP. He has not had any fevers or chills. No change in bowel or bladder habits. No sick contacts. When he was admitted to the hospital last week diuresis was attempted but unfortunately this made his kidney function even worse. Creatinine is slightly better today than it had been but still significantly elevated from his baseline. Hemoglobin is only 8.3 today but this is stable compared to last week. He has not had any hematochezia but he did note one episode of melena about 1 week ago. - Related Data Allergies/Adverse Reactions: Allergies Allergy/AdvReac Type Severity Reaction Status Date / Time cephalexin [From Keflex] Allergy Intermediate Swelling Verified 11/15/19 11:47 Home Medications: Home Meds Latanoprost [Xalatan 0.005% Ophth Soln] 1 drop EYEBOTH BEDTIME 02/03/14 [History ] Multivitamin [Multivitamins] 1 each PO DAILY 02/03/14 [History] Simvastatin [Zocor] 20 mg PO BEDTIME 02/07/14 [History] ClonazePAM [KlonoPIN] 1 mg PO BEDTIME PRN 08/03/19 [History] Losartan [Cozaar] 25 mg PO BEDTIME 08/03/19 [History] Melatonin 5 mg PO BEDTIME 08/03/19 [History] Rivaroxaban [Xarelto] 20 mg PO QPM 08/03/19 [History] Albuterol/Ipratropium [DuoNeb 3.0-0.5 MG/3 ML] 1 vial INH Q4H PRN 08/25/19 [ History] Bumetanide [Bumex] 2 mg PO BID #60 tab 09/05/19 [Rx] Citalopram Hydrobromide [Celexa] 40 mg PO DAILY #60 tablet 09/05/19 [Rx] Potassium Chloride 20 meq PO DAILY #30 tab.er.prt 09/05/19 [Rx] carvediloL [Coreg] 6.25 mg PO BID #60 tablet 09/05/19 [Rx] HYDROmorphone [Dilaudid] 2 mg PO Q4H PRN #20 tab 09/16/19 [Rx] Albuterol [Ventolin HFA] 2 inh IH Q4H PRN 01/24/20 [History] Amiodarone HCl [Pacerone] 200 mg PO WITHDINNER 01/24/20 [History] Brimonidine/Timolol [Combigan 0.2%/0.5% Ophth Soln] 1 drop EYEBOTH BID 01/24/20 [History] Cyclobenzaprine [Flexeril] 10 mg PO BID PRN 01/24/20 [History] Latanoprost [Xalatan 0.005% Ophth Soln] 1 drop EYEBOTH BEDTIME 01/24/20 [History ] Past Medical History HEENT History: Reports: Hard of Hearing, Impaired Vision Cardiovascular History: Reports: CAD, Heart Failure, High Cholesterol, Hypertension, PVD, Stents Respiratory History: Reports: COPD, Sleep Apnea, SOB Musculoskeletal History: Reports: None Psychiatric History: Reports: Anxiety, Depression Endocrine/Metabolic History: Reports: Obesity/BMI 30+ Hematologic History: Reports: Anticoagulation Therapy, Blood Transfusion(s) Immunologic History: Reports: Other (See Below) Other Immunologic History: radiation 2005 Oncologic (Cancer) History: Reports: Basal Cell Carcinoma 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 Dermatologic History: Reports: None - Infectious Disease History Infectious Disease History: Reports: Chicken Pox, Measles, Mumps - Past Surgical History Head Surgeries/Procedures: Reports: None HEENT Surgical History: Reports: None Cardiovascular Surgical History: Reports: Coronary Artery Stent Respiratory Surgical History: Reports: None GI Surgical History: Reports: Colonoscopy Endocrine Surgical History: Reports: None Musculoskeletal Surgical History: Reports: Other (See Below) Other Musculoskeletal Surgeries/Procedures:: right leg, right thumb, knee surgery Oncologic Surgical History: Reports: None Dermatological Surgical History: Reports: Skin Biopsy, Skin Graft Social & Family History - Family History Family Medical History: Noncontributory - Tobacco Use Smoking Status *Q: Current Every Day Smoker Tobacco Use Within Last Twelve Months: Cigarettes - Caffeine Use Caffeine Use: Reports: Coffee, Soda - Alcohol Use Alcohol Use History: No H&P Review of Systems - Review of Systems: Review Of Systems: See Below Free Text/Narrative: A complete 12 point review of systems was obtained. Pertinent positives and negatives are noted in the history of present illness. All other systems were reviewed and were negative except as noted. Exam - Exam Exam: See Below - Vital Signs Vital Signs: Last Vital Signs Temp 35.9 C L 01/29/20 12:03 Pulse 76 01/29/20 12:03 Resp 18 01/29/20 12:03 BP 171/96 H 01/29/20 12:03 Pulse Ox 95 01/29/20 12:03 - Exam Quality Assessment: Supplemental Oxygen General: Alert, Oriented, Cooperative. No: Mild Distress HEENT: Conjunctiva Clear, Mucosa Moist & [place]. No: Scleral Icterus Neck: Supple, Trachea Midline, Lymphadenopathy. No: JVD Lungs: Normal Respiratory Effort, Crackles (rare both bases) Cardiovascular: Regular Rate, Irregular Rhythm. No: Systolic Murmur GI/Abdominal Exam: Normal Bowel Sounds, Soft, Non-Tender, No Distention Extremities: Pedal Edema (massive edema to the knee bilaterally L>R). No: Increased Warmth Skin: Warm, Dry, Rash (mild erythema over the left anterior lin ) Neuro Extensive - Mental Status: Alert, Oriented x3, Nl Response to Commands Neuro Extensive - Motor, Sensory, Reflexes: No: Dysarthria, Abnormal Motor, Tremor Psychiatric: Alert, Normal Affect - Patient Data Lab Results Last 24 hrs: Creatinine 2.7 Hemoglobin 8.3 Sepsis Event Note - Focused Exam Vital Signs: Vital Signs Temp Pulse Resp BP Pulse Ox 01/29/20 12:03 35.9 C L 76 18 171/96 H 95 Date Exam was Performed: 01/29/20 Time Exam was Performed: 15:34 *Q Meaningful Use (ADM) - VTE *Q VTE Mechanical Contraindications *Q: Bilateral Lower Edema - VTE Risk Assess *Q Each Risk Factor Represents 1 Point: Swollen Legs, Current, Obesity ( BMI > 25 kg/m2), Congestive heart failure (CHF), Abnormal Pulmonary Function (COPD) Total Score 1 Point Risk Factors: 4 Each Risk Factor Represents 2 Points: Age 60 - 74 Years, Malignancy (present or previous) Total Score 2 Point Risk Factors: 4 Each Risk Factor Represents 3 Points: None Total Score 3 Point Risk Factors: 0 Each Risk Factor Represents 5 Points: None Total Score 5 Point Risk Factors: 0 Venous Thromboembolism Risk Factor Score *Q: 8 - Problem List (1) Acute kidney injury SNOMED Code(s): 48873023, 45448082 ICD Code: N17.9 - ACUTE KIDNEY FAILURE, UNSPECIFIED Status: Acute Current Visit: Yes (2) Diastolic congestive heart failure, NYHA class 3 SNOMED Code(s): 573085998, 633301064, 223185994 ICD Code: I50.30 - UNSPECIFIED DIASTOLIC (CONGESTIVE) HEART FAILURE Status : Chronic Current Visit: No Qualifiers: Congestive heart failure chronicity: acute on chronic Qualified Code(s): I50.33 - Acute on chronic diastolic (congestive) heart failure (3) Obstructive sleep apnea SNOMED Code(s): 68757132 ICD Code: G47.33 - OBSTRUCTIVE SLEEP APNEA (ADULT) (PEDIATRIC) Status: Chronic Current Visit: No (4) Anemia SNOMED Code(s): 271553269 ICD Code: D64.9 - ANEMIA, UNSPECIFIED Status: Acute Current Visit: No Qualifiers: Anemia type: unspecified type Qualified Code(s): D64.9 - Anemia, unspecified (5) COPD (chronic obstructive pulmonary disease) SNOMED Code(s): 10113033 ICD Code: J44.9 - CHRONIC OBSTRUCTIVE PULMONARY DISEASE, UNSPECIFIED Status : Chronic Current Visit: No Qualifiers: COPD type: unspecified COPD Qualified Code(s): J44.9 - Chronic obstructive pulmonary disease, unspecified (6) Morbid obesity with BMI of 45.0-49.9, adult SNOMED Code(s): 586853745, 01879040692086 ICD Code: E66.01 - MORBID (SEVERE) OBESITY DUE TO EXCESS CALORIES; Z68.42 - BODY MASS INDEX (BMI) 45.0-49.9, ADULT Status: Chronic Current Visit: No Problem List Initiated/Reviewed/Updated: Yes Orders Last 24hrs: Active Orders 24 hr Category Date Time Status Patient Status [ADT] Routine ADT 01/29/20 13:09 Ordered CPAP Adult [RT BiPAP/CPAP] [RC] ASDIRECTED Care 01/29/20 13:18 Ordered Height and Weight [RC] DAILY Care 01/29/20 13:09 Ordered Intake and Output [RC] QSHIFT Care 01/29/20 13:09 Ordered Notify Provider Vital Signs [RC] ASDIRECTED Care 01/29/20 13:09 Ordered Oxygen Therapy [RC] PRN Care 01/29/20 13:09 Ordered Peripheral IV Care [RC] . DIRECTED Care 01/29/20 13:13 Ordered RT Aerosol Therapy [RC] ASDIRECTED Care 01/29/20 13:14 Ordered Up With Assistance [RC] ASDIRECTED Care 01/29/20 13:09 Ordered VTE/DVT Education [RC] Per Unit Routine Care 01/29/20 13:09 Ordered Vital Signs [RC] Q4H Care 01/29/20 13:09 Ordered 2 Gram Sodium Diet [DIET] Diet 01/29/20 Lunch Ordered Echo Comp wo Cont [US] Routine Exams 01/30/20 07:00 Ordered BASIC METABOLIC PANEL,BMP [CHEM] AM Lab 01/30/20 05:11 Ordered CBC W/O DIFF,HEMOGRAM [HEME] AM Lab 01/30/20 05:11 Ordered MAGNESIUM [CHEM] AM Lab 01/30/20 05:11 Ordered Acetaminophen [Tylenol] Med 01/29/20 13:09 Ordered 650 mg PO Q4H PRN Albuterol [Proventil Neb Soln] Med 01/29/20 13:09 Ordered 2.5 mg NEB Q4H PRN Albuterol/Ipratropium [DuoNeb 3.0-0.5 MG/3 ML] Med 01/29/20 16:00 Ordered 3 ml NEB QID Amiodarone [Cordarone] Med 01/29/20 17:00 Ordered 200 mg PO WITHDINNER Brimonidine/Timolol [Combigan 0.2%/0.5% Ophth Soln] Med 01/29/20 21:00 Ordered 1 drop EYEBOTH BID Citalopram Hydrobromide [Celexa] Med 01/30/20 09:00 Ordered 40 mg PO DAILY ClonazePAM [KlonoPIN] Med 01/29/20 13:16 Ordered 1 mg PO BEDTIME PRN Cyclobenzaprine [Flexeril] Med 01/29/20 13:16 Ordered 10 mg PO BID PRN Docusate Sodium/Sennosides [Senna Plus] Med 01/29/20 13:09 Ordered 1 tab PO BID PRN HYDROmorphone [Dilaudid] Med 01/29/20 13:14 Ordered 2 mg PO Q4H PRN LORazepam [Ativan] Med 01/29/20 13:09 Ordered 0.5 mg IVPUSH Q4H PRN Latanoprost [Xalatan 0.005% Ophth Soln] Med 01/29/20 21:00 Ordered 1 drop EYEBOTH BEDTIME Magnesium Hydroxide [Milk of Magnesia] Med 01/29/20 13:09 Ordered 30 ml PO Q12H PRN Melatonin Med 01/29/20 21:00 Ordered 9 mg PO BEDTIME Ondansetron [Zofran ODT] Med 01/29/20 13:09 Ordered 4 mg PO Q6H PRN Ondansetron [Zofran] Med 01/29/20 13:09 Ordered 4 mg IV Q6H PRN Simvastatin [Zocor] Med 01/29/20 21:00 Ordered 20 mg PO BEDTIME Sodium Chloride 0.9% [Normal Saline] 1,000 ml Med 01/29/20 13:15 Ordered IV ASDIRECTED Sodium Chloride 0.9% [Saline Flush] Med 01/29/20 13:09 Ordered 10 ml FLUSH ASDIRECTED PRN carvediloL [Coreg] Med 01/29/20 21:00 Ordered 6.25 mg PO BID Peripheral IV Insertion Adult [OM.PC] Urgent Oth 01/29/20 13:09 Ordered VTE Mechanical Contraindications [AST] Routine Oth 01/29/20 13:09 Ordered Resuscitation Status Routine Resus Stat 01/29/20 13:09 Ordered Medication Orders Acetaminophen (Tylenol) 650 mg PO Q4H PRN PRN Reason: Pain (Mild 1-3)/fever Albuterol (Proventil Neb Soln) 2.5 mg NEB Q4H PRN PRN Reason: Shortness Of Breath/wheezing Albuterol/Ipratropium (Duoneb 3.0-0.5 Mg/3 Ml) 3 ml NEB QID VANESSA Amiodarone HCl (Cordarone) 200 mg PO WITHDINNER [facility] Carvedilol (Coreg) 6.25 mg PO BID VANESSA Clonazepam (Klonopin) 1 mg PO BEDTIME PRN PRN Reason: Anxiety Cyclobenzaprine HCl (Flexeril) 10 mg PO BID PRN PRN Reason: Spasms Hydromorphone HCl (Dilaudid) 2 mg PO Q4H PRN PRN Reason: Pain Sodium Chloride (Normal Saline) 1,000 mls @ 100 mls/hr IV ASDIRECTED VANESSA Latanoprost (Xalatan 0.005% Ophth Soln) ml EYEBOTH BEDTIME [facility]ESSA Lorazepam (Ativan) 0.5 mg IVPUSH Q4H PRN PRN Reason: Nausea/Vomiting Magnesium Hydroxide (Milk Of Magnesia) 30 ml PO Q12H PRN PRN Reason: Constipation Melatonin (Melatonin) 9 mg PO BEDTIME [facility] Non-Formulary Medication (Brimonidine/Timolol [Combigan 0.2%/0.5% Ophth Soln]) 1 drop EYEBOTH BID [facility] Non-Formulary Medication (Citalopram Hydrobromide [Celexa]) 40 mg PO DAILY [facility] Ondansetron HCl (Zofran Odt) 4 mg PO Q6H PRN PRN Reason: Nausea able to take PO Ondansetron HCl (Zofran) 4 mg IV Q6H PRN PRN Reason: Nausea/Vomiting Senna/Docusate Sodium (Senna Plus) 1 tab PO BID PRN PRN Reason: Constipation Simvastatin (Zocor) 20 mg PO BEDTIME [facility]ESSA Sodium Chloride (Saline Flush) 10 ml FLUSH ASDIRECTED PRN PRN Reason: Keep Vein Open Assessment/Plan Comment:: ASSESSMENT AND PLAN - Acute kidney injury-I suspect this is medication related and probably due to overdiuresis and intravascular volume depletion. He does have a total body excess of water but I believe based on examination and bedside ultrasound that he is intravascularly deplete. Kidney function worsened several days ago when diuresis was attempted. Could be contribution from his DEVON inhibitor. -Hold DEVON inhibitor and diuretics -Gentle IV fluids overnight -Repeat labs in the morning Chronic diastolic congestive heart failure-probable contribution from right- sided heart failure with suboptimally treated obstructive sleep apnea. Bedside ultrasound showed good left ventricular function but poor right-sided function and cor pulmonale could be considered. He does have significant edema but appears intravascularly deplete. -Hold diuretics as above -Continue beta-soraida -Repeat echocardiogram tomorrow to assess for change in cardiac function Obstructive sleep apnea-he does have a CPAP machine but unfortunately has had difficulty with compliance due to discomfort and the mask not wanting to stay on while he sleeps. I suspect this contributes significantly to his above issues. -Encourage compliance as much as he can tolerate Multifactorial anemia-likely contribution from his worsening renal function and possibly a component of blood loss. He did require recent transfusion. Hemoglobin currently above 8. Hopefully this will improve further as his renal function improves. -Hemoglobin in the morning -Transfuse to keep hemoglobin greater than 8 -Start iron supplement after hospital discharge History of DVT-chronically anticoagulated with rivaroxaban. He has a significant decline in his kidney function so I am going to hold this medication and consider transition to apixaban when anticoagulation is restarted. -Hold rivaroxaban Oxygen dependent COPD-he had been off oxygen for period of time but is now requiring supplemental oxygen again. -Supplement oxygen to keep oxygen saturations greater than 90% Maintenance issues - - DVT prophylaxis -unable to use mechanical means with the significant edema. We will review systemic anticoagulation tomorrow depending on renal function - GI prophylaxis -PPI - Nutrition -low-sodium - Pena catheter -not indicated CODE STATUS -full code Admission justification -this patient will be admitted for inpatient services and is medically appropriate meeting medical necessity for inpatient admission as outlined in my documentation. I reasonably expect the patient will require inpatient services that span a period time over 2 midnights. I reasonably expect this patient to be discharged or transferred within 96 hours [facility]. Disposition -I would anticipate discharge home with home care after the hospital stay Primary care physician -Dr. Rahul Garcia M.D. - Mortality Measure Prognosis:: Good
[2020-01-29] MEDS: Sodium Chloride 0.9% 1,000 ML IV SCH ×2 (14:22→23:27)
[2020-01-29] MEDS: Albuterol/Ipratropium 3.0-0.5 MG/3 ML Neb Soln NEB SCH ×2 (14:49→21:59)
[2020-01-29] MEDS: Amiodarone 200 MG Tab PO SCH (17:35)
[2020-01-29] MEDS ORDERED: Non-Formulary Medication 1 Each (Brimonidine/Timolol [Combigan 0.2%/0.5% Ophth Soln] 1 DRO EYEBOTH SCH (21:00)
[2020-01-29] MEDS: BRIMONIDINE 0.2% EYEBOTH SCH (21:48)
[2020-01-29] MEDS: Carvedilol 6.25 MG Tab PO SCH (21:49)
[2020-01-29] MEDS: Timolol Maleate 0.5% Ophth Soln 5 ML Bottle EYEBOTH SCH (21:56)
[2020-01-29] MEDS: LATANOPROST 0.005% EYEBOTH SCH (21:57)
[2020-01-29] MEDS: Simvastatin 20 MG Tab PO SCH (21:57)
[2020-01-29] MEDS: Melatonin 3 MG Tab PO SCH (21:59)
[2020-01-29] MEDS: ClonazePAM 1 MG Tab PO PRN (22:12)
[2020-01-30] MEDS: Albuterol/Ipratropium 3.0-0.5 MG/3 ML Neb Soln NEB SCH ×5 (07:04→23:28)
[2020-01-30] MEDS: Citalopram 20 MG Tab PO SCH (08:04)
[2020-01-30] MEDS: Carvedilol 6.25 MG Tab PO SCH ×2 (08:04→21:01)
[2020-01-30] MEDS: Timolol Maleate 0.5% Ophth Soln 5 ML Bottle EYEBOTH SCH ×2 (08:04→21:02)
[2020-01-30] MEDS: BRIMONIDINE 0.2% EYEBOTH SCH ×2 (08:04→21:02)
[2020-01-30] MEDS ORDERED: amLODIPine 5 MG Tab PO ONE ×2 (11:00→13:15)
--- NOTE | 2020-01-30 11:03 | PCM.PN ---
- General Info Date of Service: 01/30/20 Subjective Update: No acute events overnight. Oxygenation has been stable with 2 L of supplemental oxygen. Kidney function stable. Hemoglobin stable with no evidence for bleeding. Lower extremity edema is stable. Overall he is feeling okay but still fatigues easily and gets short of breath with activity. I did talk to the cardiology service at [facility] in [place] regarding his pulmonary hypertension today. Functional Status: Reports: Pain Controlled, Tolerating Diet - Review of Systems General: Reports: Weakness Pulmonary: Reports: Shortness of Breath Cardiovascular: Reports: Edema - Patient Data Vitals - Most Recent: Last Vital Signs Temp 36.1 C 01/30/20 07:47 Pulse 88 01/30/20 11:00 Resp 16 01/30/20 07:47 BP 153/78 H 01/30/20 08:04 Pulse Ox 91 L 01/30/20 07:47 Weight - Most Recent: 147.962 kg I&O - Last 24 Hours: Intake & Output 01/29/20 01/30/20 01/30/20 22:59 06:59 14:59 Intake Total 1112 740 Output Total 900 75 Balance 212 665 Lab Results Last 24 Hours: Laboratory Results - last 24 hr 01/30/20 01/30/20 Range/Units 05:30 05:30 WBC 6.9 (4.5-11.0) K/uL RBC 3.15 L (4.30-5.90) M/uL Hgb 8.3 L (12.0-15.0) g/dL Hct 29.9 L (40.0-54.0) % MCV 95 (80-98) fL MCH 26 L (27-31) pg MCHC 28 L (32-36) % Plt Count 159 (150-400) K/uL Sodium 140 (140-148) mmol/L Potassium 4.4 (3.6-5.2) mmol/L Chloride 105 (100-108) mmol/L Carbon Dioxide 29 (21-32) mmol/L Anion Gap 6.4 (5.0-14.0) mmol/L BUN 56 H (7-18) mg/dL Creatinine 2.9 H (0.8-1.3) mg/dL Est Cr Clr Drug Dosing 25.64 mL/min Estimated GFR (MDRD) 22 L (>60) Glucose 89 (74-106) mg/dL Calcium 8.6 (8.5-10.1) mg/dL Magnesium 1.9 (1.8-2.4) mg/dL Med Orders - Current: Current Medications Acetaminophen (Tylenol) 650 mg PO Q4H PRN PRN Reason: Pain (Mild 1-3)/fever Albuterol (Proventil Neb Soln) 2.5 mg NEB Q4H PRN PRN Reason: Shortness Of Breath/wheezing Albuterol/Ipratropium (Duoneb 3.0-0.5 Mg/3 Ml) 3 ml NEB QIDRT [facility] Last Admin: 01/30/20 11:00 Dose: 3 ml Amiodarone HCl (Cordarone) 200 mg PO WITHDINNER [facility] Last Admin: 01/29/20 17:35 Dose: 200 mg Amlodipine Besylate (Norvasc) 5 mg PO DAILY [facility] Apixaban (Eliquis) 2.5 mg PO BID ONE Stop: 01/31/20 09:01 Brimonidine Tartrate (Alphagan 0.2% Ophth Soln) 0 ml EYEBOTH BID [facility] Last Admin: 01/30/20 08:04 Dose: 1 drop Carvedilol (Coreg) 6.25 mg PO BID [facility] Last Admin: 01/30/20 08:04 Dose: 6.25 mg Citalopram Hydrobromide (Celexa) 40 mg PO DAILY [facility] Last Admin: 01/30/20 08:04 Dose: 40 mg Clonazepam (Klonopin) 1 mg PO BEDTIME PRN PRN Reason: Anxiety Last Admin: 01/29/20 22:12 Dose: 1 mg Cyclobenzaprine HCl (Flexeril) 10 mg PO BID PRN PRN Reason: Spasms Hydromorphone HCl (Dilaudid) 2 mg PO Q4H PRN PRN Reason: Pain Latanoprost (Xalatan 0.005% Ophth Soln) 0 ml EYEBOTH BEDTIME [facility] Last Admin: 01/29/20 21:57 Dose: 1 drop Lorazepam (Ativan) 0.5 mg IVPUSH Q4H PRN PRN Reason: Nausea/Vomiting Magnesium Hydroxide (Milk Of Magnesia) 30 ml PO Q12H PRN PRN Reason: Constipation Melatonin (Melatonin) 9 mg PO BEDTIME [facility] Last Admin: 01/29/20 21:59 Dose: 9 mg Ondansetron HCl (Zofran Odt) 4 mg PO Q6H PRN PRN Reason: Nausea able to take PO Ondansetron HCl (Zofran) 4 mg IV Q6H PRN PRN Reason: Nausea/Vomiting Senna/Docusate Sodium (Senna Plus) 1 tab PO BID PRN PRN Reason: Constipation Simvastatin (Zocor) 20 mg PO BEDTIME [facility] Last Admin: 01/29/20 21:57 Dose: 20 mg Sodium Chloride (Saline Flush) 10 ml FLUSH ASDIRECTED PRN PRN Reason: Keep Vein Open Timolol Maleate (Timoptic 0.5% Ophth Soln) 0 ml EYEBOTH BID [facility] Last Admin: 01/30/20 08:04 Dose: 1 drop Discontinued Medications Amlodipine Besylate (Norvasc) 5 mg PO ONETIME ONE Stop: 01/30/20 11:01 Sodium Chloride (Normal Saline) 1,000 mls @ 100 mls/hr IV ASDIRECTED [facility] Last Admin: 01/29/20 23:27 Dose: 100 mls/hr - Exam Quality Assessment: Supplemental Oxygen General: Alert, Oriented, Cooperative, No Acute Distress Lungs: Normal Respiratory Effort. No: Wheezing Cardiovascular: Regular Rate, Regular Rhythm GI/Abdominal Exam: Soft, Distended Extremities: Pedal Edema (L>R). No: Increased Warmth Skin: Warm, Dry Psy/Mental Status: Alert, Normal Affect Sepsis Event Note - Evaluation Sepsis Screening Result: No Definite Risk - Focused Exam Vital Signs: Vital Signs Temp Pulse Pulse Resp BP BP Pulse Ox 01/30/20 11:00 88 01/30/20 08:04 87 153/78 H 01/30/20 07:47 36.1 C 87 16 153/78 H 91 L 01/30/20 07:05 89 01/30/20 04:00 35.4 C L 84 18 145/89 H 92 L Date Exam was Performed: 01/30/20 Time Exam was Performed: 13:35 - Problem List & Annotations (1) Acute kidney injury SNOMED Code(s): 15010447, 72566460 Code(s): N17.9 - ACUTE KIDNEY FAILURE, UNSPECIFIED Status: Acute Current Visit: Yes (2) Diastolic congestive heart failure, NYHA class 3 SNOMED Code(s): 761006102, 661841739, 591308934 Code(s): I50.30 - UNSPECIFIED DIASTOLIC (CONGESTIVE) HEART FAILURE Status: Chronic Current Visit: No Qualifiers: Congestive heart failure chronicity: acute on chronic Qualified Code(s): I50.33 - Acute on chronic diastolic (congestive) heart failure (3) Obstructive sleep apnea SNOMED Code(s): 93258176 Code(s): G47.33 - OBSTRUCTIVE SLEEP APNEA (ADULT) (PEDIATRIC) Status: Chronic Current Visit: No (4) Anemia SNOMED Code(s): 582871742 Code(s): D64.9 - ANEMIA, UNSPECIFIED Status: Acute Current Visit: No Qualifiers: Anemia type: unspecified type Qualified Code(s): D64.9 - Anemia, unspecified (5) COPD (chronic obstructive pulmonary disease) SNOMED Code(s): 94640628 Code(s): J44.9 - CHRONIC OBSTRUCTIVE PULMONARY DISEASE, UNSPECIFIED Status : Chronic Current Visit: No Qualifiers: COPD type: unspecified COPD Qualified Code(s): J44.9 - Chronic obstructive pulmonary disease, unspecified (6) Morbid obesity with BMI of 45.0-49.9, adult SNOMED Code(s): 443376700, 08052993540536 Code(s): E66.01 - MORBID (SEVERE) OBESITY DUE TO EXCESS CALORIES; Z68.42 - BODY MASS INDEX (BMI) 45.0-49.9, ADULT Status: Chronic Current Visit: No (7) Secondary pulmonary arterial hypertension SNOMED Code(s): 42991067 Code(s): I27.21 - SECONDARY PULMONARY ARTERIAL HYPERTENSION Status: Acute Current Visit: Yes - Problem List Review Problem List Initiated/Reviewed/Updated: Yes - My Orders Last 24 Hours: My Active Orders 01/29/20 13:09 Patient Status [ADT] Routine Height and Weight [RC] 0500 Intake and Output [RC] QSHIFT Notify Provider Vital Signs [RC] ASDIRECTED Oxygen Therapy [RC] PRN Up With Assistance [RC] ASDIRECTED VTE/DVT Education [RC] Per Unit Routine Vital Signs [RC] Q4H Acetaminophen [Tylenol] 650 mg PO Q4H PRN Albuterol [Proventil Neb Soln] 2.5 mg NEB Q4H PRN Docusate Sodium/Sennosides [Senna Plus] 1 tab PO BID PRN LORazepam [Ativan] 0.5 mg IVPUSH Q4H PRN Magnesium Hydroxide [Milk of Magnesia] 30 ml PO Q12H PRN Ondansetron [Zofran ODT] 4 mg PO Q6H PRN Ondansetron [Zofran] 4 mg IV Q6H PRN Sodium Chloride 0.9% [Saline Flush] 10 ml FLUSH ASDIRECTED PRN Peripheral IV Insertion Adult [OM.PC] Urgent VTE Mechanical Contraindications [AST] Routine Resuscitation Status Routine 01/29/20 13:13 Peripheral IV Care [RC] . DIRECTED 01/29/20 13:14 RT Aerosol Therapy [RC] ASDIRECTED HYDROmorphone [Dilaudid] 2 mg PO Q4H PRN 01/29/20 13:16 ClonazePAM [KlonoPIN] 1 mg PO BEDTIME PRN Cyclobenzaprine [Flexeril] 10 mg PO BID PRN 01/29/20 13:18 CPAP Adult [RT BiPAP/CPAP] [RC] ASDIRECTED 01/29/20 15:00 Albuterol/Ipratropium [DuoNeb 3.0-0.5 MG/3 ML] 3 ml NEB QIDRT 01/29/20 17:00 Amiodarone [Cordarone] 200 mg PO WITHDINNER 01/29/20 21:00 Brimonidine [Alphagan 0.2% Ophth Soln] 0 ml EYEBOTH BID Latanoprost [Xalatan 0.005% Ophth Soln] 0 ml EYEBOTH BEDTIME Melatonin 9 mg PO BEDTIME Simvastatin [Zocor] 20 mg PO BEDTIME carvediloL [Coreg] 6.25 mg PO BID timoloL maleate [Timoptic 0.5% Ophth Soln] 0 ml EYEBOTH BID 01/29/20 Lunch 2 Gram Sodium Diet [DIET] 01/30/20 07:00 Echo Comp wo Cont [US] Routine 01/30/20 09:00 Citalopram [Celexa] 40 mg PO DAILY 01/30/20 09:49 Convert IV to Saline Lock [OM.PC] Routine 01/30/20 10:58 PT Evaluation and Treatment [CONS] Routine 05/19/20 10:59 Elastic Wrap [OM.PC] Routine 01/31/20 05:00 BASIC METABOLIC PANEL,BMP [CHEM] Timed HGB [HEMOGLOBIN] [HEME] Timed 01/31/20 09:00 Apixaban [Eliquis] 2.5 mg PO BID ONE amLODIPine [Norvasc] 5 mg PO DAILY - Plan Plan:: ASSESSMENT AND PLAN - Acute kidney injury-I suspect this is medication related and probably due to overdiuresis and intravascular volume depletion. He does have a total body excess of water but I believe based on examination and bedside ultrasound that he is intravascularly deplete. Kidney function worsened several days ago when diuresis was attempted. Could be contribution from his PETR inhibitor. -Hold PETR inhibitor and diuretics -saline lock IV -Repeat labs in the morning Severe secondary pulmonary HTN-contribution from suboptimally treated obstructive sleep apnea, chronic obstructive pulmonary disease, obesity. He is not on any therapy at this time. Repeat echocardiogram showed stable elevation of pulmonary pressures but decreasing right ventricular function. Case was reviewed with cardiology. They recommended considering a trial of either calcium channel blockers or long-acting nitrates. He may benefit from additional studies including right heart catheterization and consideration for more potent medications depending on the results. -Start amlodipine 5 mg daily, Titrate to max dose if tolerated -Consider trial of long-acting nitrates -Outpatient cardiology follow-up Chronic diastolic congestive heart failure-contribution from right-sided heart failure with suboptimally treated obstructive sleep apnea leading to cor pulmonale. He does have significant edema but appears intravascularly deplete and has poor renal perfusion with the cor pulmonale. -Hold diuretics as above -Petr wraps for lower extremities -Continue beta-soraida Obstructive sleep apnea-he does have a CPAP machine but unfortunately has had difficulty with compliance due to discomfort and the mask not wanting to stay on while he sleeps. I suspect this contributes significantly to his above issues. -Encourage compliance as much as he can tolerate Multifactorial anemia-likely contribution from his worsening renal function and possibly a component of blood loss. He did require recent transfusion. Hemoglobin stable. -Hemoglobin in the morning -Transfuse to keep hemoglobin greater than 8 -Start iron supplement after hospital discharge History of DVT-chronically anticoagulated with rivaroxaban. He has a significant decline in his kidney function so I am going to hold this medication and consider transition to apixaban when anticoagulation is restarted. -start apixaban tomorrow Oxygen dependent COPD-he had been off oxygen for period of time but is now requiring supplemental oxygen again. -Supplement oxygen to keep oxygen saturations greater than 90% Maintenance issues - - DVT prophylaxis -start apixaban tomorrow - GI prophylaxis -PPI - Nutrition -low-sodium Disposition -I would anticipate discharge home with home care after the hospital stay Primary care physician -Dr. Rahul Garcia M.D.
[2020-01-30] MEDS: Amiodarone 200 MG Tab PO SCH (17:25)
[2020-01-30] MEDS: Simvastatin 20 MG Tab PO SCH (21:02)
[2020-01-30] MEDS: Melatonin 3 MG Tab PO SCH (21:02)
[2020-01-30] MEDS: LATANOPROST 0.005% EYEBOTH SCH (21:02)
[2020-01-30] MEDS: ClonazePAM 1 MG Tab PO PRN (21:05)
[2020-01-31] MEDS ORDERED: LORazepam 1 MG Tab PO ONE (01:21)
[2020-01-31] MEDS: Albuterol/Ipratropium 3.0-0.5 MG/3 ML Neb Soln NEB SCH ×2 (06:59→11:15)
[2020-01-31] MEDS: BRIMONIDINE 0.2% EYEBOTH SCH (08:33)
[2020-01-31] MEDS: Timolol Maleate 0.5% Ophth Soln 5 ML Bottle EYEBOTH SCH (08:33)
[2020-01-31] MEDS: Citalopram 20 MG Tab PO SCH (08:35)
[2020-01-31] MEDS: Carvedilol 6.25 MG Tab PO SCH (08:37)
[2020-01-31] MEDS ORDERED: amLODIPine 10 MG Tab PO SCH (09:00)
[2020-01-31] MEDS ORDERED: Apixaban 2.5 MG Tab PO ONE (09:00)
[2020-01-31] MEDS ORDERED: amLODIPine 5 MG Tab PO SCH (09:00)
[2020-01-31 11:47] VITALS: PULSE 80
[2020-01-31 11:49] VITALS: BP 135/67
--- NOTE | 2020-01-31 12:31 | PCM.DCSUM1 ---
Discharge Summary - Hospital Course Brief History: 69-year-old male with history of obesity, obstructive sleep apnea , diastolic congestive heart failure, stage III/IV kidney disease, coronary artery disease and oxygen dependent COPD who presented as a direct admission from the clinic for management of acute on chronic kidney injury and concern for decompensation of his heart failure. Diagnosis: Stroke: No - Discharge Data Discharge Date: 01/31/20 Discharge Disposition: Home, Self-Care 01 Condition: Fair - Referral to Home Health Primary Care Physician: Sixto Kay MD - Discharge Diagnosis/Problem(s) (1) Secondary pulmonary arterial hypertension SNOMED Code(s): 63884384 ICD Code: I27.21 - SECONDARY PULMONARY ARTERIAL HYPERTENSION Status: Acute (2) Acute kidney injury SNOMED Code(s): 89590499, 93400638 ICD Code: N17.9 - ACUTE KIDNEY FAILURE, UNSPECIFIED Status: Acute (3) Diastolic congestive heart failure, NYHA class 3 SNOMED Code(s): 386695456, 030162422, 973359610 ICD Code: I50.30 - UNSPECIFIED DIASTOLIC (CONGESTIVE) HEART FAILURE Status : Chronic Qualifiers: Congestive heart failure chronicity: acute on chronic Qualified Code(s): I50.33 - Acute on chronic diastolic (congestive) heart failure (4) Obstructive sleep apnea SNOMED Code(s): 41580946 ICD Code: G47.33 - OBSTRUCTIVE SLEEP APNEA (ADULT) (PEDIATRIC) Status: Chronic (5) Anemia SNOMED Code(s): 890535021 ICD Code: D64.9 - ANEMIA, UNSPECIFIED Status: Acute Qualifiers: Anemia type: unspecified type Qualified Code(s): D64.9 - Anemia, unspecified (6) COPD (chronic obstructive pulmonary disease) SNOMED Code(s): 12045939 ICD Code: J44.9 - CHRONIC OBSTRUCTIVE PULMONARY DISEASE, UNSPECIFIED Status : Chronic Qualifiers: COPD type: unspecified COPD Qualified Code(s): J44.9 - Chronic obstructive pulmonary disease, unspecified (7) Morbid obesity with BMI of 45.0-49.9, adult SNOMED Code(s): 008880517, 38642542281657 ICD Code: E66.01 - MORBID (SEVERE) OBESITY DUE TO EXCESS CALORIES; Z68.42 - BODY MASS INDEX (BMI) 45.0-49.9, ADULT Status: Chronic - Patient Summary/Data Consults: Consultations 01/30/20 10:58 PT Evaluation and Treatment [CONS] Routine Please Evaluate and Treat. PT Reason for Consult: Strengthening This query below is only for informational purposes and is not editable. Admission Diagnosis/Problem: Acute kidney injury Hospital Course: Nathaniel presented as a direct admission from the clinic after follow-up laboratory studies revealed a creatinine level of nearly 3 and a hemoglobin of 8.3. He had recently been admitted for management of acute on chronic kidney disease and anemia thought to be multifactorial with kidney disease and possibly some bleeding. Bedside examination augmented with bedside ultrasound suggested excess total body water but intravascular volume depletion. Diuretics were held and he did receive a small amount of fluids overnight. By the morning after admission his edema was stable. Kidney function was stable. Respiratory status was stable. We did repeat an echocardiogram which showed normal left ventricular function which was stable. He had at least moderate LVH and severe pulmonary hypertension. The most significant new finding was decreased right ventricular function which raise concern for cor pulmonale. I did consult with the cardiology folks at [facility] in [place]. We reviewed all of his comorbid conditions and potential treatment options. For the short-term we elected to utilize a trial of amlodipine to see if we could reduce pulmonary pressures. He did not restart his diuretics because of the cor pulmonale type picture and concerned that this would not provide any benefit for diuresis. We did wrap his legs with Petr wraps to help with a mechanical compression to try to increase venous return. He has remained stable during the hospital stay. We had several long talks about all of the things that are contributing to his current issues. Strongly encouraged him to quit smoking as this can provide some benefit. He will continue to use his supplemental oxygen. He will use the CPAP as much as possible but has been struggling with compliance because of discomfort with the mask. Laboratory studies and vital signs have remained stable. The patient wishes to go home at this point since we are not managing anything acutely and this will likely take several days or maybe several weeks if we are going to see improvement. I think this is reasonable given his relative level of stability. His diuretics will be on hold at least until his follow-up. I am aware that he has significant edema but I do believe that aggressive diuresis will only further worsen his renal function and not provide significant benefit at this time. During discussion with the [facility] cardiology folks they did mention at some point he would benefit from a right heart catheterization and potentially trial of more potent pulmonary hypertension medications if the findings were suggestive of potential benefit. This can be set up as an outpatient. They did also discuss the possible utility of long-acting nitrates that could be added to his calcium channel soraida for additional assistance with managing the pulmonary hypertension and right heart failure. This was not started during the hospital stay but certainly could be considered. New medications- Amlodipine 10 mg daily Apixaban 2.5 mg twice a day Medications that were discontinued- -Losartan -Rivaroxaban -Bumetanide is on hold at this time - Patient Instructions Diet: Low Sodium Activity: As Tolerated Showering/Bathing: May Shower Notify Provider of: Fever, Increased Pain, Nausea and/or Vomiting Other/Special Instructions: 1. You were in the hospital for management of acute kidney injury that I believe was caused by reduced function of the right side of your heart leading to poor function of the left side of your heart. This condition is called cor pulmonale. The repeat echocardiogram showed severe pulmonary hypertension. We are attempting to treat the pulmonary hypertension by starting amlodipine. This medication will help to relax the blood vessels in the chest and hopefully reduce the pressures and improve blood flow through the lungs to the left side of the heart. This will take some time to work. Your kidney function has been stable during the course of the hospital stay. I recommend that you use Petr wraps from your foot all the way up to your knee. You should wrap them as tight as possible and use them as much as possible. Elevating your legs above your pelvis can also help. 2. Stop taking the following medications: --Rivaroxaban (Xarelto). --losartan. --bumetanide. 3. Start taking the following medications: --amlodipine (treatment for pulmonary hypertension). --apixaban (new blood thinner that is safe with your current level of kidney function). 4. Follow up with Dr. Sixto Kay next week as scheduled. You should have kidney function and hemoglobin rechecked at the time of that visit. - Discharge Plan *PRESCRIPTION DRUG MONITORING PROGRAM REVIEWED*: Not Applicable *COPY OF PRESCRIPTION DRUG MONITORING REPORT IN PATIENT MATILDE: Not Applicable Prescriptions/Med Rec: amLODIPine Besylate [Amlodipine Besylate] 10 mg PO DAILY #30 tablet Apixaban [Eliquis] 2.5 mg PO BID #60 tablet Home Medications: Home Meds Latanoprost [Xalatan 0.005% Ophth Soln] 1 drop EYEBOTH BEDTIME 02/03/14 [History ] Multivitamin [Multivitamins] 1 each PO DAILY 02/03/14 [History] Simvastatin [Zocor] 20 mg PO BEDTIME 02/07/14 [History] ClonazePAM [KlonoPIN] 1 mg PO BEDTIME PRN 08/03/19 [History] Melatonin 5 mg PO BEDTIME 08/03/19 [History] Albuterol/Ipratropium [DuoNeb 3.0-0.5 MG/3 ML] 1 vial INH Q4H PRN 08/25/19 [ History] Citalopram Hydrobromide [Celexa] 40 mg PO DAILY #60 tablet 09/05/19 [Rx] Potassium Chloride 20 meq PO DAILY #30 tab.er.prt 09/05/19 [Rx] carvediloL [Coreg] 6.25 mg PO BID #60 tablet 09/05/19 [Rx] HYDROmorphone [Dilaudid] 2 mg PO Q4H PRN #20 tab 09/16/19 [Rx] Albuterol [Ventolin HFA] 2 inh IH Q4H PRN 01/24/20 [History] Amiodarone HCl [Pacerone] 200 mg PO WITHDINNER 01/24/20 [History] Brimonidine/Timolol [Combigan 0.2%/0.5% Ophth Soln] 1 drop EYEBOTH BID 01/24/20 [History] Cyclobenzaprine [Flexeril] 10 mg PO BID PRN 01/24/20 [History] Latanoprost [Xalatan 0.005% Ophth Soln] 1 drop EYEBOTH BEDTIME 01/24/20 [History ] Apixaban [Eliquis] 2.5 mg PO BID #60 tablet 01/31/20 [Rx] amLODIPine Besylate [Amlodipine Besylate] 10 mg PO DAILY #30 tablet 01/31/20 [Rx ] Oxygen Therapy Mode: Nasal Cannula Oxygen Flow Rate (L/min): 2 Patient Handouts: Pulmonary Hypertension, Amlodipine tablets Referrals: Sixto Kay MD [Primary Care Provider] - 02/06/20 11:00 am (f/u as scheduled next Wednesday. Repeat BMP and HGB on the day of the appoitnment.) - Discharge Summary/Plan Comment DC Time >30 min.: Yes (45-coordinating follow-up and counseling ) - Patient Data Vitals - Most Recent: Last Vital Signs Temp 35.9 C L 01/31/20 11:00 Pulse 80 01/31/20 11:00 Resp 18 01/31/20 11:00 BP 135/67 01/31/20 11:48 Pulse Ox 92 L 01/31/20 11:00 Weight - Most Recent: 147.871 kg I&O - Last 24 hours: Intake & Output 01/30/20 01/31/20 01/31/20 22:59 06:59 14:59 Intake Total 1240 500 Output Total 925 400 Balance 315 100 Lab Results - Last 24 hrs: Laboratory Results - last 24 hr 01/31/20 01/31/20 Range/Units 04:30 04:30 Hgb 8.3 L (12.0-15.0) g/dL Sodium 139 L (140-148) mmol/L Potassium 4.5 (3.6-5.2) mmol/L Chloride 105 (100-108) mmol/L Carbon Dioxide 26 (21-32) mmol/L Anion Gap 12.5 (5.0-14.0) mmol/L BUN 56 H (7-18) mg/dL Creatinine 3.0 H (0.8-1.3) mg/dL Est Cr Clr Drug Dosing 26.27 mL/min Estimated GFR (MDRD) 21 L (>60) Glucose 89 (74-106) mg/dL Calcium 8.6 (8.5-10.1) mg/dL Med Orders - Current: Current Medications Acetaminophen (Tylenol) 650 mg PO Q4H PRN PRN Reason: Pain (Mild 1-3)/fever Albuterol (Proventil Neb Soln) 2.5 mg NEB Q4H PRN PRN Reason: Shortness Of Breath/wheezing Albuterol/Ipratropium (Duoneb 3.0-0.5 Mg/3 Ml) 3 ml NEB QIDRT VANESSA Last Admin: 01/31/20 11:15 Dose: 3 ml Amiodarone HCl (Cordarone) 200 mg PO WITHDINNER [facility] Last Admin: 01/30/20 17:25 Dose: 200 mg Amlodipine Besylate (Norvasc) 10 mg PO DAILY [facility] Last Admin: 01/31/20 10:11 Dose: 10 mg Apixaban (Eliquis) 2.5 mg PO BID [facility] Brimonidine Tartrate (Alphagan 0.2% Ophth Soln) 0 ml EYEBOTH BID [facility] Last Admin: 01/31/20 08:33 Dose: 1 drop Carvedilol (Coreg) 6.25 mg PO BID [facility] Last Admin: 01/31/20 08:37 Dose: 6.25 mg Citalopram Hydrobromide (Celexa) 40 mg PO DAILY [facility] Last Admin: 01/31/20 08:35 Dose: 40 mg Clonazepam (Klonopin) 1 mg PO BEDTIME PRN PRN Reason: Anxiety Last Admin: 01/30/20 21:05 Dose: 1 mg Cyclobenzaprine HCl (Flexeril) 10 mg PO BID PRN PRN Reason: Spasms Hydromorphone HCl (Dilaudid) 2 mg PO Q4H PRN PRN Reason: Pain Latanoprost (Xalatan 0.005% Ophth Soln) 0 ml EYEBOTH BEDTIME [facility] Last Admin: 01/30/20 21:02 Dose: 1 drop Lorazepam (Ativan) 0.5 mg IVPUSH Q4H PRN PRN Reason: Nausea/Vomiting Magnesium Hydroxide (Milk Of Magnesia) 30 ml PO Q12H PRN PRN Reason: Constipation Melatonin (Melatonin) 9 mg PO BEDTIME [facility] Last Admin: 01/30/20 21:02 Dose: 9 mg Ondansetron HCl (Zofran Odt) 4 mg PO Q6H PRN PRN Reason: Nausea able to take PO Ondansetron HCl (Zofran) 4 mg IV Q6H PRN PRN Reason: Nausea/Vomiting Senna/Docusate Sodium (Senna Plus) 1 tab PO BID PRN PRN Reason: Constipation Simvastatin (Zocor) 20 mg PO BEDTIME [facility] Last Admin: 01/30/20 21:02 Dose: 20 mg Sodium Chloride (Saline Flush) 10 ml FLUSH ASDIRECTED PRN PRN Reason: Keep Vein Open Timolol Maleate (Timoptic 0.5% Ophth Soln) 0 ml EYEBOTH BID [facility] Last Admin: 01/31/20 08:33 Dose: 1 drop Discontinued Medications Amlodipine Besylate (Norvasc) 5 mg PO DAILY [facility] Amlodipine Besylate (Norvasc) 5 mg PO ONETIME ONE Stop: 01/30/20 13:16 Last Admin: 01/30/20 13:28 Dose: 5 mg Apixaban (Eliquis) 2.5 mg PO BID ONE Stop: 01/31/20 09:01 Last Admin: 01/31/20 08:35 Dose: 2.5 mg Sodium Chloride (Normal Saline) 1,000 mls @ 100 mls/hr IV ASDIRECTED [facility] Last Admin: 01/29/20 23:27 Dose: 100 mls/hr Lorazepam (Ativan) 1 mg PO ONETIME ONE Stop: 01/31/20 01:22 Last Admin: 01/31/20 01:34 Dose: 1 mg - Exam Quality Assessment: Reports: Supplemental Oxygen General: Reports: Alert, Oriented, Cooperative, No Acute Distress Lungs: Reports: Normal Respiratory Effort Cardiovascular: Reports: Regular Rate, Irregular Rhythm GI/Abdominal Exam: Soft, No Distention Extremities: Pedal Edema Psy/Mental Status: Reports: Alert, Normal Affect *Q Meaningful Use (DIS) - VTE *Q VTE Mechanical Contraindications *Q: Bilateral Lower Edema
[2020-01-31] MEDS ORDERED: Apixaban 2.5 MG Tab PO SCH (21:00)
== END 2020-01-31 13:40 | disposition home or self-care (01) | DRG 682 ==
LOC: JP.MS 11:43
PROVIDERS: ADMIT Internal Medicine; ATTEND Internal Medicine
DX: N17.9 Acute kidney failure, unspecified (principal); I50.33 Acute on chronic diastolic (congestive) heart failure; I13.0 Hypertensive heart and chronic kidney disease with heart failure and stage 1 through stage 4 chronic kidney disease, or unspecified chronic kidney disease; Z68.42 Body mass index [BMI] 45.0-49.9, adult; I27.21 Secondary pulmonary arterial hypertension; G47.33 Obstructive sleep apnea (adult) (pediatric); D64.9 Anemia, unspecified; J44.9 Chronic obstructive pulmonary disease, unspecified; E66.01 Morbid (severe) obesity due to excess calories; N18.3 Chronic kidney disease, stage 3 (moderate); I25.10 Atherosclerotic heart disease of native coronary artery without angina pectoris; E78.00 Pure hypercholesterolemia, unspecified; F41.9 Anxiety disorder, unspecified; F32.9 Major depressive disorder, single episode, unspecified; F17.210 Nicotine dependence, cigarettes, uncomplicated; Z88.1 Allergy status to other antibiotic agents; Z79.899 Other long term (current) drug therapy; Z95.5 Presence of coronary angioplasty implant and graft
CPT/HCPCS: 36415; 80048; 83735; 85018; 85027; 93306; 94640; 97110-GP; 97162-GP; 97530-GP; A9270-GY; J7030; J7620-GY

== ENCOUNTER 2020-02-06 11:56 | Emergency (ER) | payer MEDICARE, BC ==
[2020-02-06] MEDS ORDERED: Albuterol 0.083% 2.5 MG/3 ML Neb Soln NEB ONE (12:11)
[2020-02-06] MEDS ORDERED: Furosemide 40 MG/4 ML VIAL IVPUSH ONE (12:13)
--- NOTE | 2020-02-06 12:20 | EDM.PDOC ---
ED HPI GENERAL MEDICAL PROBLEM - General Chief Complaint: Respiratory Problem Stated Complaint: CHF SENT FROM CLINIC Time Seen by Provider: 02/06/20 12:19 Source of Information: Reports: Patient History Limitations: Reports: No Limitations - History of Present Illness INITIAL COMMENTS - FREE TEXT/NARRATIVE: pt was seen by Dr Kay today and he was found to be in more chf. He can be transfered to [place] once he is alittle more stable. he has a history of rt sided chf. He was to go to [place] and perhaps a Heart Cath to assess further. Onset: Gradual, Other (pt has been retaining more and more fluid. ) Duration: Hour(s): Location: Reports: Chest, Lower Extremity, Left, Lower Extremity, Right Associated Symptoms: Reports: Cough, Shortness of Breath, Weakness - Related Data Allergies Allergy/AdvReac Type Severity Reaction Status Date / Time cephalexin [From Keflex] Allergy Intermediate Swelling Verified 02/09/20 19:31 Home Meds: Home Meds Multivitamin [Multivitamins] 1 each PO DAILY 02/03/14 [History] Simvastatin [Zocor] 20 mg PO BEDTIME 02/07/14 [History] ClonazePAM [KlonoPIN] 1 mg PO BEDTIME PRN 08/03/19 [History] Melatonin 5 mg PO BEDTIME 08/03/19 [History] Citalopram Hydrobromide [Celexa] 40 mg PO DAILY #60 tablet 09/05/19 [Rx] Potassium Chloride 20 meq PO DAILY #30 tab.er.prt 09/05/19 [Rx] carvediloL [Coreg] 6.25 mg PO BID #60 tablet 09/05/19 [Rx] HYDROmorphone [Dilaudid] 2 mg PO Q4H PRN #20 tab 09/16/19 [Rx] Albuterol [Ventolin HFA] 2 inh IH Q4H PRN 01/24/20 [History] Amiodarone HCl [Pacerone] 200 mg PO WITHDINNER 01/24/20 [History] Brimonidine/Timolol [Combigan 0.2%/0.5% Ophth Soln] 1 drop EYEBOTH BID 01/24/20 [History] Cyclobenzaprine [Flexeril] 10 mg PO BID PRN 01/24/20 [History] Latanoprost [Xalatan 0.005% Ophth Soln] 1 drop EYEBOTH BEDTIME 01/24/20 [History ] amLODIPine Besylate [Amlodipine Besylate] 10 mg PO DAILY #30 tablet 01/31/20 [Rx ] Ammonium Lactate [Lac-Hydrin 12% Crm] 140 gm .XX BID 02/06/20 [History] Bumetanide [Bumex] 2 mg PO BID 02/06/20 [History] LORazepam [Lorazepam] 0.5 mg PO Q4HR 02/06/20 [History] Losartan [Cozaar] 25 mg PO DAILY 02/06/20 [History] Mupirocin Cream [Bactroban Crm] 1 applic TOP TID 02/06/20 [History] Rivaroxaban [Xarelto] 20 mg PO ACDINNER 02/06/20 [History] Saw [place] 160 mg PO DAILY 02/06/20 [History] Umeclidinium Brm/Vilanterol Tr [Anoro Ellipta 62.5-25 MCG] 1 puff IH DAILY 02/05 [History] carvediloL [Carvedilol] 6.25 mg PO BID 02/06/20 [History] Past Medical History HEENT History: Reports: Hard of Hearing, Impaired Vision Cardiovascular History: Reports: CAD, Heart Failure, High Cholesterol, Hypertension, PVD, Stents Respiratory History: Reports: COPD, Sleep Apnea, SOB Genitourinary History: Reports: Renal Disease, Urinary Incontinence Musculoskeletal History: Reports: None Psychiatric History: Reports: Anxiety, Depression Endocrine/Metabolic History: Reports: Obesity/BMI 30+ Hematologic History: Reports: Anticoagulation Therapy, Blood Transfusion(s) Immunologic History: Reports: Other (See Below) Other Immunologic History: radiation 2004 Oncologic (Cancer) History: Reports: Basal Cell Carcinoma 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 Dermatologic History: Reports: None - Infectious Disease History Infectious Disease History: Reports: Chicken Pox, Measles, Mumps - Past Surgical History Head Surgeries/Procedures: Reports: None HEENT Surgical History: Reports: None Cardiovascular Surgical History: Reports: Coronary Artery Stent Respiratory Surgical History: Reports: None GI Surgical History: Reports: Colonoscopy Endocrine Surgical History: Reports: None Musculoskeletal Surgical History: Reports: Other (See Below) Other Musculoskeletal Surgeries/Procedures:: right leg, right thumb, knee surgery Oncologic Surgical History: Reports: None Dermatological Surgical History: Reports: Skin Biopsy, Skin Graft Social & Family History - Family History Family Medical History: Noncontributory - Caffeine Use Caffeine Use: Reports: Coffee, Soda ED ROS GENERAL - Review of Systems Review Of Systems: See Below Constitutional: Reports: No Symptoms HEENT: Reports: No Symptoms Respiratory: Reports: Shortness of Breath, Cough Cardiovascular: Reports: No Symptoms Endocrine: Reports: No Symptoms GI/Abdominal: Reports: No Symptoms : Reports: No Symptoms Musculoskeletal: Reports: No Symptoms Skin: Reports: No Symptoms ED EXAM, GENERAL - Physical Exam Exam: See Below Free Text/Narrative:: pt was seen by Dr Kay today at the clinic with increased sob. He has gained about 40 lbs. His legs continue to be very swollen. he was recently hospitalized and diuresed and there was consideration of further studies in [place]. He has not done well since the hospitalization. Exam Limited By: No Limitations General Appearance: Alert, Anxious, Moderate Distress Ears: Normal TMs Nose: Normal Inspection Throat/Mouth: Normal Inspection Head: Atraumatic Neck: Normal Inspection Respiratory/Chest: Decreased Breath Sounds, Crackles, Wheezing Cardiovascular: Gallop/S3, Irregularly Irregular GI/Abdominal: Soft, Non-Tender (Male) Exam: Deferred Rectal (Males) Exam: Deferred Back Exam: Normal Inspection Extremities: Pedal Edema, Other (pt has marked ankle swelling. ) Neurological: Alert, Oriented, Normal Cognition Psychiatric: Normal Affect Course - Vital Signs Last Recorded V/S: Last Vital Signs Temp 36.6 C 02/06/20 12:38 Pulse 87 02/06/20 14:00 Resp 21 H 02/06/20 14:00 BP 127/80 02/06/20 13:39 Pulse Ox 95 02/06/20 14:00 - Orders/Labs/Meds Labs: Laboratory Tests 02/06/20 02/06/20 Range/Units 12:13 12:29 Puncture Site Rt brachial ABG pH 7.310 L (7.350-7.450) ABG pCO2 52.8 H (35.0-42.0) mmHg ABG pO2 53.7 L (75.0-100.0) mmHg ABG HCO3 25.8 (22.0-26.0) mmol/L ABG Total CO2 24.9 (23.0-27.0) mmol/L ABG O2 Saturation 83.3 L (95.0-98.0) % ABG O2 Content 9.7 L (15.0-23.0) %vol ABG Base Excess -0.2 mm/L ABG Hemoglobin 8.6 L (13.5-18.0) g/dL ABG Oxyhemoglobin 79.9 % ABG Carboxyhemoglobin 3.2 H (0.0-1.6) % ABG Methemoglobin 0.9 % Santiago Test Not performed O2 Delivery Device Nasal cannula Oxygen Flow Rate 3.0 L NT-Pro-B Natriuret Pep 4115 H (5-125) pg/mL Meds: Medications Discontinued Medications Generic Name Dose Route Start Last Admin Trade Name Freq PRN Reason Stop Dose Admin Albuterol 2.5 mg 02/06/20 12:11 02/06/20 12:18 Proventil Neb Soln NEB 02/06/20 12:12 2.5 mg ONETIME ONE Administration Furosemide 60 mg 02/06/20 12:13 02/06/20 12:35 Lasix IVPUSH 02/06/20 12:14 60 mg ONETIME ONE Administration Morphine Sulfate 2 mg 02/06/20 12:38 02/06/20 13:01 Morphine IVPUSH 02/06/20 12:39 2 mg ONETIME ONE Administration Ondansetron HCl 4 mg 02/06/20 12:33 02/06/20 12:36 Zofran IVPUSH 02/06/20 12:34 4 mg ONETIME ONE Administration - Re-Assessments/Exams Free Text/Narrative Re-Assessment/Exam: 02/06/20 13:02 chest xray shows marked chf and cardiomegoly, he has blood gaes which show poor oxgenation and some co2 retention. 02/06/20 13:43 pt was given lasix 60mg iv, morphine 2 mg. He had a mclaughlin cath inserted. He had bipap placed. He has diuresed, his chest xray shows severe chf and cardiomegoly. His creatine is 2.19. He has known renal issues, He has a history of rt sided failure. Departure - Departure Time of Disposition: 14:00 Disposition: DC/Tfer to Acute Hospital 02 Condition: Fair Clinical Impression: Right-sided heart failure, Anemia, Renal insufficiency - Discharge Information Referrals: Sixto Kay MD [Primary Care Provider] - Forms: ED Department Discharge Care Plan Goals: transfer to [facility]. Sepsis Event Note - Focused Exam Date Exam was Performed: 02/10/20 Time Exam was Performed: 00:41
[2020-02-06] MEDS ORDERED: Ondansetron 4 MG/2 ML SDV IVPUSH ONE (12:33)
[2020-02-06] MEDS ORDERED: Morphine 2 MG/ML Syringe IVPUSH ONE (12:38)
--- NOTE | 2020-02-06 13:51 | CR ---
CHEST: Portable 02/06/2020 at 12:49 PM CLINICAL HISTORY:SOB COMPARISON:2019 FINDINGS: Heart is moderately enlarged. Patient has had previous sternotomy. There is diffuse pulmonary vascular congestion and interstitial edema. No significant effusions are seen Impression: Moderate cardiomegaly with vascular congestion and pulmonary edema from CHF Previous sternotomy.
[2020-02-06 14:00] VITALS: BP 127/80
[2020-02-06 14:06] VITALS: PULSE 87
== END 2020-02-06 14:43 ==
LOC: JP.ED 11:56
DX: I11.0 Hypertensive heart disease with heart failure (principal); I50.810 Right heart failure, unspecified; D64.9 Anemia, unspecified; N28.9 Disorder of kidney and ureter, unspecified; J44.9 Chronic obstructive pulmonary disease, unspecified; E78.00 Pure hypercholesterolemia, unspecified; I25.10 Atherosclerotic heart disease of native coronary artery without angina pectoris; F41.9 Anxiety disorder, unspecified; F32.9 Major depressive disorder, single episode, unspecified; E66.9 Obesity, unspecified; Z68.41 Body mass index [BMI] 40.0-44.9, adult; Z88.1 Allergy status to other antibiotic agents; Z79.899 Other long term (current) drug therapy
CPT/HCPCS: 36415; 36600; 51702; 71045; 82803; 83880; 93005; 94640; 96374; 96375; 99285; J1940; J2270; J2405; 93010

== ENCOUNTER 2020-02-09 19:13 | Emergency (ER) | payer MEDICARE, BC ==
[2020-02-09 19:35] VITALS: BP 141/70; PULSE 77
--- NOTE | 2020-02-09 20:25 | EDM.PDOC ---
ED HPI GENERAL MEDICAL PROBLEM - General Chief Complaint: Genitourinary Problem Stated Complaint: CATHETER ISSUES Time Seen by Provider: 02/09/20 20:20 Source of Information: Reports: Patient History Limitations: Reports: No Limitations - History of Present Illness INITIAL COMMENTS - FREE TEXT/NARRATIVE: pt arrived because his urine looks bloody. he is on xarelto and he has been cathed three times since he left for [facility] on wednesday. Onset: Gradual Duration: Hour(s): Location: Reports: Other ( blood in the urine. ) Associated Symptoms: Reports: No Other Symptoms - Related Data Allergies Allergy/AdvReac Type Severity Reaction Status Date / Time cephalexin [From Keflex] Allergy Intermediate Swelling Verified 02/09/20 19:31 Home Meds: Home Meds Multivitamin [Multivitamins] 1 each PO DAILY 02/03/14 [History] Simvastatin [Zocor] 20 mg PO BEDTIME 02/07/14 [History] ClonazePAM [KlonoPIN] 1 mg PO BEDTIME PRN 08/03/19 [History] Melatonin 5 mg PO BEDTIME 08/03/19 [History] Citalopram Hydrobromide [Celexa] 40 mg PO DAILY #60 tablet 09/05/19 [Rx] Potassium Chloride 20 meq PO DAILY #30 tab.er.prt 09/05/19 [Rx] carvediloL [Coreg] 6.25 mg PO BID #60 tablet 09/05/19 [Rx] HYDROmorphone [Dilaudid] 2 mg PO Q4H PRN #20 tab 09/16/19 [Rx] Albuterol [Ventolin HFA] 2 inh IH Q4H PRN 01/24/20 [History] Amiodarone HCl [Pacerone] 200 mg PO WITHDINNER 01/24/20 [History] Brimonidine/Timolol [Combigan 0.2%/0.5% Ophth Soln] 1 drop EYEBOTH BID 01/24/20 [History] Cyclobenzaprine [Flexeril] 10 mg PO BID PRN 01/24/20 [History] Latanoprost [Xalatan 0.005% Ophth Soln] 1 drop EYEBOTH BEDTIME 01/24/20 [History ] amLODIPine Besylate [Amlodipine Besylate] 10 mg PO DAILY #30 tablet 01/31/20 [Rx ] Ammonium Lactate [Lac-Hydrin 12% Crm] 140 gm .XX BID 02/06/20 [History] Bumetanide [Bumex] 2 mg PO BID 02/06/20 [History] LORazepam [Lorazepam] 0.5 mg PO Q4HR 02/06/20 [History] Losartan [Cozaar] 25 mg PO DAILY 02/06/20 [History] Mupirocin Cream [Bactroban Crm] 1 applic TOP TID 02/06/20 [History] Rivaroxaban [Xarelto] 20 mg PO ACDINNER 02/06/20 [History] [place] 160 mg PO DAILY 02/06/20 [History] Umeclidinium Brm/Vilanterol Tr [Anoro Ellipta 62.5-25 MCG] 1 puff IH DAILY 02/05 [History] carvediloL [Carvedilol] 6.25 mg PO BID 02/06/20 [History] Past Medical History HEENT History: Reports: Hard of Hearing, Impaired Vision Cardiovascular History: Reports: CAD, Heart Failure, High Cholesterol, Hypertension, PVD, Stents Respiratory History: Reports: COPD, Sleep Apnea, SOB Genitourinary History: Reports: Renal Disease, Urinary Incontinence Musculoskeletal History: Reports: None Psychiatric History: Reports: Anxiety, Depression Endocrine/Metabolic History: Reports: Obesity/BMI 30+ Hematologic History: Reports: Anticoagulation Therapy, Blood Transfusion(s) Immunologic History: Reports: Other (See Below) Other Immunologic History: radiation 2005 Oncologic (Cancer) History: Reports: Basal Cell Carcinoma 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 Dermatologic History: Reports: None - Infectious Disease History Infectious Disease History: Reports: Chicken Pox, Measles, Mumps - Past Surgical History Head Surgeries/Procedures: Reports: None HEENT Surgical History: Reports: None Cardiovascular Surgical History: Reports: Coronary Artery Stent Respiratory Surgical History: Reports: None GI Surgical History: Reports: Colonoscopy Endocrine Surgical History: Reports: None Musculoskeletal Surgical History: Reports: Other (See Below) Other Musculoskeletal Surgeries/Procedures:: right leg, right thumb, knee surgery Oncologic Surgical History: Reports: None Dermatological Surgical History: Reports: Skin Biopsy, Skin Graft Social & Family History - Family History Family Medical History: Noncontributory - Tobacco Use Smoking Status *Q: Never Smoker - Caffeine Use Caffeine Use: Reports: Coffee - Recreational Drug Use Recreational Drug Use: No ED ROS GENERAL - Review of Systems Review Of Systems: See Below Constitutional: Reports: No Symptoms HEENT: Reports: No Symptoms Respiratory: Reports: No Symptoms Endocrine: Reports: No Symptoms GI/Abdominal: Reports: No Symptoms : Reports: Other ( blood in the urine) Musculoskeletal: Reports: No Symptoms Skin: Reports: No Symptoms Neurological: Reports: No Symptoms Psychiatric: Reports: No Symptoms Hematologic/Lymphatic: Reports: No Symptoms ED EXAM, RENAL/ - Physical Exam Exam: See Below Text/Narrative:: pt was discharged from [facility] recently. He has a mclaughlin cath and there is blood in the urine. He is on xarelto. Exam Limited By: No Limitations General Appearance: Alert, No Apparent Distress, Anxious, Other (pt has stable bereathing. ) Ears: Normal TMs Nose: Normal Inspection Throat/Mouth: Normal Inspection Head: Atraumatic Neck: Normal Inspection Respiratory/Chest: No Respiratory Distress Cardiovascular: Regular Rate, Rhythm (Male) Exam: Other (pt has a mclaughlin that is draining well. He has urine that has lite red staining no clots present. ) Rectal (Males) Exam: Deferred Back Exam: Normal Inspection Extremities: Normal Inspection Neurological: Alert, Oriented, Normal Cognition Psychiatric: Anxious Course - Vital Signs Last Recorded V/S: Last Vital Signs Temp 37.2 C 02/09/20 19:41 Pulse 77 02/09/20 19:41 Resp 16 02/09/20 19:41 BP 141/70 H 02/09/20 19:41 Pulse Ox 94 L 02/09/20 19:41 - Orders/Labs/Meds Labs: Laboratory Tests 02/09/20 Range/Units 19:57 Urine Color Red A (YELLOW) Urine Appearance Slightly cloudy A (CLEAR) Urine pH 7.5 (5.0-8.0) Ur Specific [place] 1.025 (1.008-1.030) Urine Protein >=300 H (NEGATIVE) mg/dL Urine Glucose (UA) Negative (NEGATIVE) mg/dL Urine Ketones Negative (NEGATIVE) mg/dL Urine Occult Blood Large H (NEGATIVE) Urine Nitrite Negative (NEGATIVE) Urine Bilirubin Small H (NEGATIVE) Urine Urobilinogen >=8.0 H (0.2-1.0) EU/dL Ur Leukocyte Esterase Trace H (NEGATIVE) Urine RBC >100 H (0-5) Urine WBC Not seen (0-5) Ur Epithelial Cells Not seen Urine Bacteria Not seen - Re-Assessments/Exams Free Text/Narrative Re-Assessment/Exam: 02/09/20 20:25 ua shows rbcs, no wbcs and no bacteria. Pt is on xarelto. Departure - Departure Time of Disposition: 20:25 Disposition: Home, Self-Care 01 Condition: Fair Clinical Impression: Hematuria - Discharge Information Referrals: Sixto Kay MD [Primary Care Provider] - Care Plan Goals: rtc if pt starts passing clots or having difficulty with drainage of cath Sepsis Event Note - Evaluation Sepsis Screening Result: No Definite Risk - Focused Exam Vital Signs: Vital Signs Temp Pulse Resp BP Pulse Ox 02/09/20 19:41 37.2 C 77 16 141/70 H 94 L 02/09/20 19:33 37.2 C 77 16 141/70 H 94 L Date Exam was Performed: 02/09/20 Time Exam was Performed: 20:20
== END 2020-02-09 21:02 | disposition home or self-care (01) ==
LOC: JP.ED 19:13
DX: R31.9 Hematuria, unspecified (principal); I25.10 Atherosclerotic heart disease of native coronary artery without angina pectoris; I11.0 Hypertensive heart disease with heart failure; I50.9 Heart failure, unspecified; J44.9 Chronic obstructive pulmonary disease, unspecified; F41.9 Anxiety disorder, unspecified; F32.9 Major depressive disorder, single episode, unspecified; E66.9 Obesity, unspecified; Z68.41 Body mass index [BMI] 40.0-44.9, adult; Z95.5 Presence of coronary angioplasty implant and graft
CPT/HCPCS: 81001; 99283

== ENCOUNTER 2021-06-09 21:10 | Emergency (ER) | payer MEDICARE, BC ==
[2021-06-09 21:42] VITALS: BP 133/65; PULSE 62
[2021-06-09] MEDS ORDERED: HYDROmorphone 1 MG/ML Syringe IM ONE (22:03)
--- NOTE | 2021-06-09 22:40 | EDM.PDOC ---
ED HPI GENERAL MEDICAL PROBLEM - General Chief Complaint: General Stated Complaint: FALL, PAIN IN RIBS L SIDE Time Seen by Provider: 06/09/21 21:45 Source of Information: Reports: Patient, Family History Limitations: Reports: No Limitations - History of Present Illness INITIAL COMMENTS - FREE TEXT/NARRATIVE: 70-year-old male stumbled earlier tonight landing on an exercise machine at home injuring his left flank area of his chest. He has pain with movement and breathing but no shortness of breath. Some friends of his called a medical relative and he was advised to come in and get checked out because he was on blood thinners. He has some pleuritic pain but no shortness of breath on arrival, some difficulty moving and getting out of the car due to the pain. He denies any abdominal pain or low back pain. No extremity injury. Onset: Sudden Duration: Hour(s): (About 2 hours ago) Location: Reports: Chest (Posterior left chest, flank area) Severity: Moderate Improves with: Reports: Other (Sitting still is helpful) Worsens with: Reports: Breathing, Movement Associated Symptoms: Reports: Chest Pain (No anterior chest pain). Denies: Cough, Fever/Chills, Nausea/Vomiting, Shortness of Breath Left Generalized Pain Score (Numeric/FACES): 7 - Related Data Allergies Allergy/AdvReac Type Severity Reaction Status Date / Time cephalexin [From Keflex] Allergy Intermediate Swelling Verified 06/09/21 21:38 Home Meds: Home Meds Simvastatin [Zocor] 20 mg PO BEDTIME 02/07/14 [History] ClonazePAM [KlonoPIN] 1 mg PO BEDTIME PRN 08/03/19 [History] Citalopram Hydrobromide [Celexa] 40 mg PO DAILY #60 tablet 09/05/19 [Rx] carvediloL [Coreg] 6.25 mg PO BID #60 tablet 09/05/19 [Rx] HYDROmorphone [Dilaudid] 2 mg PO Q4H PRN #20 tab 09/16/19 [Rx] Amiodarone HCl [Pacerone] 200 mg PO WITHDINNER 01/24/20 [History] Brimonidine/Timolol [Combigan 0.2%/0.5% Ophth Soln] 1 drop EYEBOTH BID 01/24/20 [History] Latanoprost [Xalatan 0.005% Ophth Soln] 1 drop EYEBOTH BEDTIME 01/24/20 [History] amLODIPine Besylate [Amlodipine Besylate] 10 mg PO DAILY #30 tablet 01/31/20 [Rx] Bumetanide [Bumex] 2 mg PO TID 02/06/20 [History] LORazepam [Lorazepam] 0.5 mg PO Q4HR PRN 02/06/20 [History] Losartan [Cozaar] 25 mg PO DAILY 02/06/20 [History] Apixaban [Eliquis] 1 tab PO BID 06/09/21 [History] Isosorbide Dinitrate [Isordil] 5 mg PO BID 06/09/21 [History] Magnesium Oxide 0.5 tab PO DAILY 06/09/21 [History] Oxybutynin [Oxybutynin ER] 5 mg PO DAILY 06/09/21 [History] Potassium Chloride 20 meq PO QID 06/09/21 [History] amLODIPine Besylate [Amlodipine Besylate] 10 mg PO DAILY 06/09/21 [History] Past Medical History HEENT History: Reports: Hard of Hearing, Impaired Vision Cardiovascular History: Reports: Afib, Blood Clots/VTE/DVT, CAD, Heart Failure, High Cholesterol, Hypertension, PVD, Stents, Other (See Below) Other Cardiovascular History: cor pulmonale Respiratory History: Reports: COPD, Sleep Apnea, SOB, Other (See Below) Other Respiratory History: chronic respiratory failure Gastrointestinal History: Reports: Chronic Constipation Genitourinary History: Reports: Chronic Renal Insuffiency, Renal Disease, Uri nary Incontinence Musculoskeletal History: Reports: None, Arthritis, Fracture Psychiatric History: Reports: Anxiety, Depression Endocrine/Metabolic History: Reports: Obesity/BMI 30+ Hematologic History: Reports: Anticoagulation Therapy, Blood Transfusion(s) Immunologic History: Reports: Other (See Below) Other Immunologic History: radiation 2005 Oncologic (Cancer) History: Reports: Basal Cell Carcinoma 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 Dermatologic History: Reports: None - Infectious Disease History Infectious Disease History: Reports: Chicken Pox, Measles, Mumps - Past Surgical History Head Surgeries/Procedures: Reports: None HEENT Surgical History: Reports: None Other HEENT Surgeries/Procedures: cancer removed from the top of his head Cardiovascular Surgical History: Reports: Coronary Artery Stent Respiratory Surgical History: Reports: None GI Surgical History: Reports: Colonoscopy Endocrine Surgical History: Reports: None Musculoskeletal Surgical History: Reports: Other (See Below) Other Musculoskeletal Surgeries/Procedures:: right leg, right thumb, knee surgery Oncologic Surgical History: Reports: None Dermatological Surgical History: Reports: Skin Biopsy, Skin Graft Social & Family History - Family History Family Medical History: No Pertinent Family History - Tobacco Use Tobacco Use Status *Q: Current Every Day Tobacco User Years of Tobacco use: 50 Packs/Tins Daily: 0.3 - Caffeine Use Caffeine Use: Reports: Coffee - Recreational Drug Use Recreational Drug Use: No ED ROS GENERAL - Review of Systems Review Of Systems: See Below Constitutional: Denies: Fever, Chills HEENT: Reports: No Symptoms Respiratory: Reports: Pleuritic Chest Pain. Denies: Shortness of Breath, Cough Cardiovascular: Reports: Chest Pain. Denies: Palpitations GI/Abdominal: Denies: Abdominal Pain, Nausea, Vomiting : Reports: No Symptoms Skin: Reports: Bruising (Some bruising is developing over the injured area on the left lateral chest and flank) Neurological: Reports: No Symptoms Psychiatric: Reports: No Symptoms ED EXAM, GENERAL - Physical Exam Exam: See Below Exam Limited By: No Limitations General Appearance: Alert, No Apparent Distress (Patient looks uncomfortable ashley ecially when trying to move but he is in no distress) Head: Atraumatic Neck: Supple, Non-Tender Respiratory/Chest: Lungs Clear, Other (Some overlying bruising is seen on the posterior left lateral chest, no hematoma palpable but very tender to palpation and one spot of crepitus was felt) Cardiovascular: Regular Rate, Rhythm GI/Abdominal: Soft, Non-Tender Back Exam: Normal Inspection. No: Paraspinal Tenderness, Vertebral Tenderness Neurological: Alert, Oriented Psychiatric: Flat Affect Skin Exam: Warm, Dry Course - Vital Signs Last Recorded V/S: Last Vital Signs Temp 98.3 F 06/09/21 21:43 Pulse 62 06/09/21 21:43 Resp 18 06/09/21 21:43 BP 133/65 06/09/21 21:43 Pulse Ox 96 06/09/21 21:43 - Orders/Labs/Meds Meds: Medications Discontinued Medications Generic Name Dose Route Start Last Admin Trade Name Freq PRN Reason Stop Dose Admin Hydromorphone HCl 1 mg 06/09/21 22:03 06/09/21 22:28 Hydromorphone 1 Mg/Ml Syringe IM 06/09/21 22:04 1 mg ONETIME ONE Administration - Re-Assessments/Exams Free Text/Narrative Re-Assessment/Exam: 06/09/21 22:40 Patient was given 1 mg of IM Dilaudid and sent back for a CT of his chest without contrast. 06/09/21 23:19 Patient had good pain relief from the Dilaudid, CT results are as follows IMPRESSION: 1. Acute left 6th and 7th rib fractures with mild displacement. No evidence of pneumothorax. 2. Mild panlobular emphysema with old granulomatous disease. 3. Status post coronary artery bypass grafting with left ventricular dilatation. 4. Incidental right renal atrophy with moderate to severe left hydronephrosis noted. Hydronephrosis extends beyond the lower margin of the scan, unknown etiology. This was discussed with the patient, he is very stable. He was discharged with 20 doses of hydrocodone for extra pain control and can follow-up with his regular doctor as needed if not improving satisfactorily. He should return to the emergency room if he has difficulty breathing. Departure - Departure Time of Disposition: 23:29 Disposition: Home, Self-Care 01 Clinical Impression: Left rib fracture Qualifiers: Encounter type: initial encounter Rib fracture type: multiple ribs Fracture type: closed Qualified Code(s): S22.42XA - Multiple fractures of ribs, left side, initial encounter for closed fracture - Discharge Information Instructions: Rib Fracture, [id number] Referrals: Sixto Kay MD [Primary Care Provider] - Forms: ED Department Discharge Care Plan Goals: Continue your current medications and add stronger pain medication as directed if needed. Concentrate on taking deep breaths occasionally and a stool softener and extra water will be helpful if taking the stronger pain medications. Recheck with your regular doctor at any time if you do not feel you are improving satisfactorily, or return to the emergency room if worsening such as difficulty breathing. Sepsis Event Note (ED) - Evaluation Sepsis Screening Result: No Definite Risk - Focused Exam Vital Signs: Vital Signs Temp Pulse Resp BP Pulse Ox 06/09/21 21:43 98.3 F 62 18 133/65 96 06/09/21 21:40 98.3 F 62 18 133/65 96
--- NOTE | 2021-06-09 23:17 | CRLCT ---
For Patients: As a result of the Century Cures Act, medical imaging exams and procedure reports are released immediately into your electronic medical record. You may view this report before your referring provider. If you have questions, please contact your health care provider. INDICATION: Fall, left-sided trauma TECHNIQUE: Axial images were obtained from the thoracic inlet to the diaphragm. Reformats: Coronal and sagittal IV Contrast: None COMPARISON: None. FINDINGS: Mediastinum: Prominent atherosclerosis with left-sided aortic arch. Coronary atherosclerosis status post coronary bypass grafting. Left ventricular dilatation. Calcified mediastinal left hilar lymph nodes. Other separate subcentimeter lymph nodes. Lungs and Pleural Space: Mild panlobular emphysema. Calcified granuloma within the lingula mild areas of discoid atelectasis. No evidence of pneumothorax or pleural effusion. Chest wall: No masses. Upper abdomen: Right renal atrophy with moderate to severe left hydronephrosis, partially included on the examination. Colonic diverticulosis. Exophytic left renal mildly hyperdense lesion measuring 2.7 centimeters. Bones: Status post median sternotomy. Advanced right glenohumeral osteoarthritis. Moderate left glenohumeral osteoarthritis. Left 6th rib fracture anterolaterally with 3 millimeters displacement. Left 7th rib fracture anterolaterally with 3 millimeters displacement. IMPRESSION: 1. Acute left 6th and 7th rib fractures with mild displacement. No evidence of pneumothorax. 2. Mild panlobular emphysema with old granulomatous disease. 3. Status post coronary artery bypass grafting with left ventricular dilatation. 4. Incidental right renal atrophy with moderate to severe left hydronephrosis noted. Hydronephrosis extends beyond the lower margin of the scan, unknown etiology. Please note that all CT scans at this facility use dose modulation, iterative reconstruction, and/or weight-based dosing when appropriate to reduce radiation dose to as low as reasonably achievable. Dictated by Dakotah Fernandez MD @ 06/09/2021 11:16:49 PM (Electronically Signed)
== END 2021-06-09 23:42 | disposition home or self-care (01) ==
LOC: JP.ED 21:10
DX: S22.42XA Multiple fractures of ribs, left side, initial encounter for closed fracture (principal); I48.91 Unspecified atrial fibrillation; I25.10 Atherosclerotic heart disease of native coronary artery without angina pectoris; I13.0 Hypertensive heart and chronic kidney disease with heart failure and stage 1 through stage 4 chronic kidney disease, or unspecified chronic kidney disease; N18.9 Chronic kidney disease, unspecified; I50.9 Heart failure, unspecified; J44.9 Chronic obstructive pulmonary disease, unspecified; E78.00 Pure hypercholesterolemia, unspecified; E66.9 Obesity, unspecified; Z95.5 Presence of coronary angioplasty implant and graft; Z88.1 Allergy status to other antibiotic agents; Z79.01 Long term (current) use of anticoagulants; Z68.28 Body mass index [BMI] 28.0-28.9, adult; Z79.899 Other long term (current) drug therapy; W01.0XXA Fall on same level from slipping, tripping and stumbling without subsequent striking against object, initial encounter
CPT/HCPCS: 71250; 96372; 99283; J1170

== ENCOUNTER 2021-06-14 23:04 | Emergency (ER) | payer MEDICARE, BC ==
--- NOTE | 2021-06-14 23:12 | EDM.PDOC ---
ED HPI GENERAL MEDICAL PROBLEM - General Chief Complaint: Respiratory Problem Stated Complaint: FELL/BROKEN RIBS Time Seen by Provider: 06/14/21 23:04 Source of Information: Reports: Patient, EMS History Limitations: Reports: No Limitations - History of Present Illness INITIAL COMMENTS - FREE TEXT/NARRATIVE: 70-year-old male who was seen 5 days ago when he stumbled striking his left flank on a piece of exercise machine and breaking 2 ribs. He does have COPD. He has been struggling at home and slowly becoming more short of breath. He has gotten much worse in the last 48 hours after his fell on top of him. Over the last 2 days he has been unable to get in and out of bed, he cannot get up and down the stairs. EMS was called sameer and found his O2 saturations were in the 80s but he did not act short of breath. His health looks much worse today than it did 5 days ago, I did see him at that time and he was much more alert and talkative. Denies fevers or chills, denies nausea or vomiting. Pain is on the left side of his chest extending into the left abdomen. Onset: Gradual Location: Reports: Chest, Abdomen Worsens with: Reports: Movement Associated Symptoms: Reports: Malaise, Shortness of Breath, Weakness left rib pain Pain Score (Numeric/FACES): 6 - Related Data Allergies Allergy/AdvReac Type Severity Reaction Status Date / Time cephalexin [From Keflex] Allergy Intermediate Swelling Verified 06/14/21 23:08 Home Meds: Home Meds Simvastatin [Zocor] 20 mg PO BEDTIME 02/07/14 [History] ClonazePAM [KlonoPIN] 1 mg PO BEDTIME PRN 08/03/19 [History] Citalopram Hydrobromide [Celexa] 40 mg PO DAILY #60 tablet 09/05/19 [Rx] carvediloL [Coreg] 6.25 mg PO BID #60 tablet 09/05/19 [Rx] Amiodarone HCl [Pacerone] 200 mg PO WITHDINNER 01/24/20 [History] amLODIPine Besylate [Amlodipine Besylate] 10 mg PO DAILY #30 tablet 01/31/20 [Rx] Bumetanide [Bumex] 2 mg PO DAILY 02/06/20 [History] Losartan [Cozaar] 25 mg PO DAILY 02/06/20 [History] Apixaban [Eliquis] 1 tab PO BID 06/09/21 [History] Isosorbide Dinitrate [Isordil] 5 mg PO BID 06/09/21 [History] Magnesium Oxide 0.5 tab PO DAILY 06/09/21 [History] Oxybutynin [Oxybutynin ER] 5 mg PO DAILY 06/09/21 [History] Potassium Chloride 20 meq PO QID 06/09/21 [History] Hydrocodone/Acetaminophen [Lorcet 5-325 mg Tablet] 1 - 2 tab PO Q6H PRN 06/14/21 [History] Past Medical History HEENT History: Reports: Hard of Hearing, Impaired Vision Cardiovascular History: Reports: Afib, Blood Clots/VTE/DVT, CAD, Heart Failure, High Cholesterol, Hypertension, PVD, Stents, Other (See Below) Other Cardiovascular History: cor pulmonale Respiratory History: Reports: COPD, Sleep Apnea, SOB, Other (See Below) Other Respiratory History: chronic respiratory failure Gastrointestinal History: Reports: Chronic Constipation Genitourinary History: Reports: Chronic Renal Insuffiency, Renal Disease, Urinary Incontinence Musculoskeletal History: Reports: None, Arthritis, Fracture Psychiatric History: Reports: Anxiety, Depression Endocrine/Metabolic History: Reports: Obesity/BMI 30+ Hematologic History: Reports: Anticoagulation Therapy, Blood Transfusion(s) Immunologic History: Reports: Other (See Below) Other Immunologic History: radiation 2005 Oncologic (Cancer) History: Reports: Basal Cell Carcinoma 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 Dermatologic History: Reports: None - Infectious Disease History Infectious Disease History: Reports: Chicken Pox, Measles, Mumps - Past Surgical History Head Surgeries/Procedures: Reports: None HEENT Surgical History: Reports: None Other HEENT Surgeries/Procedures: cancer removed from the top of his head Cardiovascular Surgical History: Reports: Coronary Artery Stent Respiratory Surgical History: Reports: None GI Surgical History: Reports: Colonoscopy Endocrine Surgical History: Reports: None Musculoskeletal Surgical History: Reports: Other (See Below) Other Musculoskeletal Surgeries/Procedures:: right leg, right thumb, knee surgery Oncologic Surgical History: Reports: None Dermatological Surgical History: Reports: Skin Biopsy, Skin Graft Social & Family History - Family History Family Medical History: No Pertinent Family History - Caffeine Use Caffeine Use: Reports: Coffee ED ROS GENERAL - Review of Systems Review Of Systems: See Below Constitutional: Reports: Malaise, Decreased Appetite, Weight Loss. Denies: Fever, Chills HEENT: Reports: No Symptoms Respiratory: Reports: Shortness of Breath, Pleuritic Chest Pain (Left-sided), Cough Cardiovascular: Reports: Chest Pain (Left-sided), Lightheadedness. Denies: Palpitations GI/Abdominal: Reports: Abdominal Pain (Left upper abdomen). Denies: Diarrhea, Nausea, Vomiting : Reports: No Symptoms, Other (Making urine normally) Musculoskeletal: Reports: Other (Posterior left chest and back pain) Skin: Reports: Pallor, Bruising (Bruises somewhat easily) Neurological: Reports: Difficulty Walking, Weakness. Denies: Confusion ED EXAM, GENERAL - Physical Exam Exam: See Below Exam Limited By: Other (Patient has significant O2 desaturation into the low 80s but does not appear short of breath) General Appearance: Alert, Mild Distress Eye Exam: Bilateral Eye: Other (Pale conjunctiva) Head: Atraumatic, Other (Pitted scars on the scalp from previous skin cancer removal) Neck: Supple, Non-Tender Respiratory/Chest: Respiratory Distress (Mild to moderate respiratory distress, diffuse expiratory rales especially on the left) Cardiovascular: Regular Rate, Rhythm, Bradycardia GI/Abdominal: Soft, Non-Tender Extremities: Other (Significant lower extremity edema, somewhat worse on the left than the right) Neurological: Alert, Oriented, No Motor/Sensory Deficits, Other (Diffuse weakness but no asymmetry) Psychiatric: Flat Affect Skin Exam: Warm, Dry, Other (Scattered extremity bruises) Course - Vital Signs Last Recorded V/S: Last Vital Signs Temp 95.2 F L 06/14/21 23:08 Pulse 44 L 06/15/21 00:04 Resp 15 06/15/21 00:04 BP 135/57 L 06/15/21 00:04 Pulse Ox 99 06/15/21 00:05 - Orders/Labs/Meds Orders: Active Orders 24 hr Category Date Time Status Insert Pena Catheter [Insert Urinary Catheter] [OM.PC] Care 06/15/21 00:45 Ordered Q24H EKG 12 Lead [EK] Routine Ther 06/15/21 00:31 Ordered Labs: Laboratory Tests 06/14/21 06/14/21 06/15/21 Range/Units 23:24 23:24 00:00 WBC 4.8 (4.5-11.0) K/uL RBC 2.58 L (4.30-5.90) M/uL Hgb 6.8 L* (12.0-15.0) g/dL Hct 22.7 L (40.0-54.0) % MCV 88 (80-98) fL MCH 26 L (27-31) pg MCHC 30 L (32-36) % Plt Count 193 (150-400) K/uL Neut % (Auto) 64.3 (36-66) % Lymph % (Auto) 13.9 L (24-44) % Dickson % (Auto) 18.7 H (2-6) % Eos % (Auto) 2.7 (2-4) % Baso % (Auto) 0.4 (0-1) % Sodium 136 L (140-148) mmol/L Potassium 7.0 H* (3.6-5.2) mmol/L Chloride 105 (100-108) mmol/L Carbon Dioxide 19 L (21-32) mmol/L Anion Gap 19.0 H (5.0-14.0) mmol/L BUN 104 H* D (7-18) mg/dL Creatinine 9.1 H* D (0.8-1.3) mg/dL Est Cr Clr Drug Dosing 8.06 mL/min Estimated GFR (MDRD) 6 L (>60) Glucose 86 (74-106) mg/dL Calcium 8.3 L (8.5-10.1) mg/dL Total Bilirubin 0.4 D (0.2-1.0) mg/dL AST 8 L (15-37) U/L ALT 17 (12-78) U/L Alkaline Phosphatase 67 (46-116) U/L Creatine Kinase (39-308) U/L Total Protein 6.8 (6.4-8.2) g/dL Albumin 3.1 L (3.4-5.0) g/dL Globulin 3.7 H (2.3-3.5) g/dL Albumin/Globulin Ratio 0.8 L (1.2-2.2) Urine Color (YELLOW) Urine Appearance (CLEAR) Urine pH (5.0-8.0) Ur Specific [place] (1.008-1.030) Urine Protein (NEGATIVE) mg/dL Urine Glucose (UA) (NEGATIVE) mg/dL Urine Ketones (NEGATIVE) mg/dL Urine Occult Blood (NEGATIVE) Urine Nitrite (NEGATIVE) Urine Bilirubin (NEGATIVE) Urine Urobilinogen (0.2-1.0) EU/dL Ur Leukocyte Esterase (NEGATIVE) Urine RBC (0-5) Urine WBC (0-5) Ur Epithelial Cells Amorphous Sediment Urine Bacteria Urine Mucus Blood Type A POSITIVE Gel Antibody Screen Negative Crossmatch See Detail 06/15/21 06/15/21 Range/Units 00:01 01:05 WBC (4.5-11.0) K/uL RBC (4.30-5.90) M/uL Hgb (12.0-15.0) g/dL Hct (40.0-54.0) % MCV (80-98) fL MCH (27-31) pg MCHC (32-36) % Plt Count (150-400) K/uL Neut % (Auto) (36-66) % Lymph % (Auto) (24-44) % Dickson % (Auto) (2-6) % Eos % (Auto) (2-4) % Baso % (Auto) (0-1) % Sodium (140-148) mmol/L Potassium (3.6-5.2) mmol/L Chloride (100-108) mmol/L Carbon Dioxide (21-32) mmol/L Anion Gap (5.0-14.0) mmol/L BUN (7-18) mg/dL Creatinine (0.8-1.3) mg/dL Est Cr Clr Drug Dosing mL/min Estimated GFR (MDRD) (>60) Glucose (74-106) mg/dL Calcium (8.5-10.1) mg/dL Total Bilirubin (0.2-1.0) mg/dL AST (15-37) U/L ALT (12-78) U/L Alkaline Phosphatase (46-116) U/L Creatine Kinase 40 (39-308) U/L Total Protein (6.4-8.2) g/dL Albumin (3.4-5.0) g/dL Globulin (2.3-3.5) g/dL Albumin/Globulin Ratio (1.2-2.2) Urine Color Yellow (YELLOW) Urine Appearance Cloudy A (CLEAR) Urine pH 6.0 (5.0-8.0) Ur Specific [place] 1.015 (1.008-1.030) Urine Protein 30 H (NEGATIVE) mg/dL Urine Glucose (UA) Negative (NEGATIVE) mg/dL Urine Ketones Negative (NEGATIVE) mg/dL Urine Occult Blood Large H (NEGATIVE) Urine Nitrite Negative (NEGATIVE) Urine Bilirubin Negative (NEGATIVE) Urine Urobilinogen 0.2 (0.2-1.0) EU/dL Ur Leukocyte Esterase Large H (NEGATIVE) Urine RBC 10-20 H (0-5) Urine WBC Semi-packed H (0-5) Ur Epithelial Cells Rare Amorphous Sediment Not seen Urine Bacteria Many Urine Mucus Not seen Blood Type Gel Antibody Screen Crossmatch Meds: Medications Discontinued Medications Generic Name Dose Route Start Last Admin Trade Name Freq PRN Reason Stop Dose Admin Calcium Gluconate 1 gm 06/15/21 00:22 06/15/21 00:35 Calcium Gluconate 10% 1 Gm/10 Ml Sdv IVPUSH 06/15/21 00:23 1 gm ONETIME ONE Administration Dextrose/Water 50 ml 06/15/21 00:17 06/15/21 00:43 50% Dextrose In Water 50 Ml Syringe IVPUSH 06/15/21 00:18 50 ml ONETIME ONE Administration Dextrose/Water 50 ml 06/15/21 00:30 50% Dextrose In Water 50 Ml Syringe IVPUSH ASDIRECTED PRN Hypoglycemia Furosemide 100 mg 06/15/21 00:27 06/15/21 01:05 Furosemide 100 Mg/10 Ml Sdv IVPUSH 06/15/21 00:28 100 mg NOW ONE Administration Glucagon 1 mg 06/15/21 00:30 Glucagon,Human Recombinant 1 Mg Vial IM ASDIRECTED PRN Hypoglycemia Sodium Chloride 1,000 mls @ 0 mls/hr 06/14/21 23:30 06/15/21 00:34 Normal Saline IV 50 mls/hr ASDIRECTED VANESSA Administration KVO Insulin Human Regular 10 unit 06/15/21 00:30 06/15/21 00:48 Insulin Regular, Human 100 Units/Ml 3 Ml Vial IVPUSH 06/15/21 00:31 10 units ONETIME ONE Administration - Re-Assessments/Exams Free Text/Narrative Re-Assessment/Exam: 06/15/21 00:35 A chest x-ray was obtained that showed diffuse mild congestive failure. An IV was started and a CMP, CBC was obtained. This revealed a hemoglobin of only 6.8, potassium of 7.0, creatinine of 9 and GFR of only 6. Reviewing the clinic records this patient has not had labs for the last year and at that time his hemoglobin was 10. He did have acute kidney injury a year ago when his creatinine reached 3.6. He is not diabetic, and he claims to be making urine. His admits she has been pushing fluids and encouraged him to drink a lot of water. Phone consultation was made with [place], and urgent treatment to reverse hyperkalemia was done which included 1 g of calcium carbonate IV, 1 amp of D50 followed by 10 units of IV insulin. EKG was done and a Pena was placed. Patient will be flown to [place] to be placed in intensive care, he will need fairly urgent dialysis. He was also given 100 mg of IV Lasix. 1 unit of packed RBCs was typed and screened, if this is available by discharge it will be given in route. 06/15/21 01:40 Pena was placed, yellow urine was released up to a full liter, with significant sediment present in the later expelled urine. CK was 40. He became more stable, less hypoxic and distressed with time. EKG showed sinus bradycardia, no peak T waves or widening QRS. 06/15/21 01:51 Patient was transferred to [place] at 1:50 AM. 1 unit of packed red blood cells was running, patient was still producing urine. 06/15/21 01:52 Total critical care time was 45 minutes. Departure - Departure Time of Disposition: 01:50 Disposition: DC/Tfer to Other Clinical Impression: Severe anemia, Congestive heart failure of unknown etiology, Hyperkalemia Acute renal failure Qualifiers: Acute renal failure type: unspecified Qualified Code(s): N17.9 - Acute kidney failure, unspecified - Discharge Information Referrals: Sixto Kay MD [Primary Care Provider] - Forms: ED Department Discharge Care Plan Goals: Patient was accepted to [facility] in [place], direct admit to critical care. He will likely need dialysis unless the Pena catheter takes care of his outlet obstruction and acute renal injury. Critical Care Note - Critical Care Note Total Time (mins): 45 Sepsis Event Note (ED) - Evaluation Sepsis Screening Result: No Definite Risk - Focused Exam Vital Signs: Vital Signs Temp Pulse Resp BP Pulse Ox Pulse Ox 06/15/21 00:05 99 06/15/21 00:04 44 L 15 135/57 L 99 06/14/21 23:08 95.2 F L 47 L 14 125/47 L 79 L 06/14/21 23:07 95.2 F L 47 L 14 125/47 L 79 L - My Orders Last 24 Hours: My Active Orders 06/15/21 00:31 EKG 12 Lead [EK] Routine 06/15/21 00:45 Insert Pena Catheter [Insert Urinary Catheter] [OM.PC] Q24H - Assessment/Plan Last 24 Hours: My Active Orders 06/15/21 00:31 EKG 12 Lead [EK] Routine 06/15/21 00:45 Insert Pena Catheter [Insert Urinary Catheter] [OM.PC] Q24H
[2021-06-14] MEDS ORDERED: Sodium Chloride 0.9% 1,000 ML IV SCH (23:30)
[2021-06-15 00:05] VITALS: BP 135/57; PULSE 44
[2021-06-15] MEDS ORDERED: 50% Dextrose in Water 50 ML Syringe IVPUSH ONE (00:17)
[2021-06-15] MEDS ORDERED: Insulin Regular, Human 100 Units/ML 3 ML Vial IVPUSH ONE ×2 (00:19→00:30)
[2021-06-15] MEDS ORDERED: Calcium Gluconate 10% 1 GM/10 ML SDV IVPUSH ONE (00:22)
[2021-06-15] MEDS ORDERED: Furosemide 100 MG/10 ML SDV IVPUSH ONE (00:27)
[2021-06-15] MEDS ORDERED: Glucagon,Human Recombinant 1 MG Vial IM PRN (00:30)
[2021-06-15] MEDS ORDERED: 50% Dextrose in Water 50 ML Syringe IVPUSH PRN (00:30)
--- NOTE | 2021-06-15 01:31 | CRLCR ---
For Patients: As a result of the Century Cures Act, medical imaging exams and procedure reports are released immediately into your electronic medical record. You may view this report before your referring provider. If you have questions, please contact your health care provider. INDICATION: Hypoxia, chest trauma 5 days ago. TECHNIQUE: Chest 1 view(s) COMPARISON: CT chest dated 06/09/2021. FINDINGS: Cardiomegaly. Diffuse patchy airspace opacities in the left lower lung, which were not present on prior CT, worrisome for development of pulmonary contusions. Prominent interstitial markings bilaterally, may reflect component of senescent changes versus pulmonary edema. Left costophrenic angle is not well visualized. No large right pleural effusion. No definite pneumothorax is identified. Post median sternotomy. Acute and chronic left rib fractures are noted. IMPRESSION: 1. Diffuse patchy airspace opacities in the left lower lung, worrisome for interval development of pulmonary contusions. No definite pneumothorax identified. 2. Prominent interstitial markings bilaterally, may reflect component of senescent changes versus pulmonary edema. 3. Acute and chronic left rib fractures are noted. Dictated by Bakari Avila MD @ 06/15/2021 1:29:06 AM (Electronically Signed)
== END 2021-06-15 01:50 | disposition other institution (70) ==
LOC: JP.ED 23:04
DX: I11.0 Hypertensive heart disease with heart failure (principal); I50.9 Heart failure, unspecified; D64.9 Anemia, unspecified; E87.5 Hyperkalemia; N17.9 Acute kidney failure, unspecified; E78.00 Pure hypercholesterolemia, unspecified; J44.9 Chronic obstructive pulmonary disease, unspecified; E66.9 Obesity, unspecified; Z68.41 Body mass index [BMI] 40.0-44.9, adult; Z79.01 Long term (current) use of anticoagulants; Z79.899 Other long term (current) drug therapy; Z88.1 Allergy status to other antibiotic agents
CPT/HCPCS: 36415; 36430; 51702; 71045; 80053; 81001; 82550; 85025; 86850; 86900; 86901; 86920; 86922; 87086; 87088; 87186; 93005; 96374; 96375; 99285; J0610; J1940; J7030; P9016; J1815-GY

== ENCOUNTER 2022-04-08 14:59 | Emergency (ER) | payer MEDICARE, BC ==
[2022-04-08] MEDS ORDERED: Sodium Chloride 0.9% 10 ML Syringe FLUSH PRN (15:11)
[2022-04-08] MEDS ORDERED: Ondansetron 4 MG/2 ML SDV IVPUSH ONE (15:23)
[2022-04-08] MEDS ORDERED: Ticagrelor 90 MG Tab PO ONE (15:23)
[2022-04-08] MEDS ORDERED: Aspirin 81 MG Tab.Chew PO ONE (15:23)
[2022-04-08] MEDS ORDERED: Heparin Sodium 5,000 Units/ML Vial IVPUSH ONE (15:23)
[2022-04-08] MEDS ORDERED: Heparin Sodium/D5W 25,000 UNITS/500 ML BAG IV SCH (15:30)
[2022-04-08 15:36] LABS: ESTIMATED GFR 15 mL/min (>60); TROPONIN I HIGH SENSITIVITY 41.2 pg/mL (<=60.3)
[2022-04-08] MEDS ORDERED: Metoprolol Succinate 50 MG Tab.ER PO ONE (15:54)
[2022-04-08] MEDS ORDERED: Metoprolol Tartrate 25 MG Tab PO ONE (16:15)
[2022-04-08 16:17] VITALS: BP 158/64; PULSE 78
== END 2022-04-08 15:55 ==
LOC: JP.ED 14:59
DX: I21.29 ST elevation (STEMI) myocardial infarction involving other sites (principal); I48.91 Unspecified atrial fibrillation; I25.10 Atherosclerotic heart disease of native coronary artery without angina pectoris; E78.00 Pure hypercholesterolemia, unspecified; I12.9 Hypertensive chronic kidney disease with stage 1 through stage 4 chronic kidney disease, or unspecified chronic kidney disease; N18.9 Chronic kidney disease, unspecified; F17.210 Nicotine dependence, cigarettes, uncomplicated; Z95.1 Presence of aortocoronary bypass graft; Z88.1 Allergy status to other antibiotic agents; Z79.899 Other long term (current) drug therapy; Z79.01 Long term (current) use of anticoagulants
CPT/HCPCS: 36415; 71045; 80053; 84484; 85025; 85610; 85730; 93005; 96365; 96375; 96376; 99285; A9270; J1644; J2405; J3490; 93010; 99291

== ENCOUNTER 2022-04-12 12:37 | Emergency (ER) | payer MEDICARE, BC | END 2022-04-12 13:05 | disposition left against medical advice (07) | LOC: JP.ED 12:37 | DX: Z53.21 Procedure and treatment not carried out due to patient leaving prior to being seen by health care provider (principal) ==

== ENCOUNTER 2022-05-06 11:32 | Emergency (ER) | payer MEDICARE, BC ==
[2022-05-06] MEDS ORDERED: Sodium Chloride 0.9% 10 ML Syringe FLUSH PRN (11:49)
[2022-05-06] MEDS ORDERED: Furosemide 20 MG/2 ML VIAL IVPUSH ONE (19:00)
[2022-05-06 21:35] VITALS: BP 150/97; PULSE 84
== END 2022-05-06 21:00 | disposition home or self-care (01) ==
LOC: JP.ED 11:32
DX: I25.10 Atherosclerotic heart disease of native coronary artery without angina pectoris (principal); I13.0 Hypertensive heart and chronic kidney disease with heart failure and stage 1 through stage 4 chronic kidney disease, or unspecified chronic kidney disease; I50.9 Heart failure, unspecified; N18.4 Chronic kidney disease, stage 4 (severe); D63.1 Anemia in chronic kidney disease; J44.9 Chronic obstructive pulmonary disease, unspecified; E66.9 Obesity, unspecified; Z68.29 Body mass index [BMI] 29.0-29.9, adult; Z79.899 Other long term (current) drug therapy; Z79.01 Long term (current) use of anticoagulants; Z88.1 Allergy status to other antibiotic agents
CPT/HCPCS: 36415; 36430; 80048; 85014; 85018; 85025; 86850; 86900; 86901; 86920; 86922; 96374; 99284; J1940; J3490; P9016

== ENCOUNTER 2022-06-12 07:59 | Day surgery (SDC) | payer MEDICARE, BC ==
[~2022-06-12 07:59] MED LIST: Propofol 200 MG/20 ML SDV ONE; fentaNYL 100 MCG/2 ML SDV ONE
[2022-06-12] MEDS ORDERED: Dextrose 5%-Lactated Ringers 1,000 ML IV SCH (08:30)
[2022-06-12] MEDS ORDERED: Pantoprazole 40 MG Vial IVPUSH ONE (10:30)
[2022-06-12] MEDS ORDERED: Pantoprazole 40 MG Vial ONE (10:33)
[2022-06-12 11:26] VITALS: BP 111/66; PULSE 79
== END 2022-06-12 11:42 | disposition home or self-care (01) ==
LOC: JP.SDS 07:59
PROVIDERS: ATTEND Surgery
DX: K22.10 Ulcer of esophagus without bleeding (principal); K44.9 Diaphragmatic hernia without obstruction or gangrene; F17.200 Nicotine dependence, unspecified, uncomplicated; J44.9 Chronic obstructive pulmonary disease, unspecified; I25.10 Atherosclerotic heart disease of native coronary artery without angina pectoris; Z88.1 Allergy status to other antibiotic agents
CPT/HCPCS: 36415; 43239; 82607; 82728; 82746; 85027; 87081; C9113; J2704; J3010; J7121

== ENCOUNTER 2022-06-14 12:11 | Emergency (ER) | payer MEDICARE, BC ==
[2022-06-14] MEDS: Sodium Chloride 0.9% 10 ML Syringe FLUSH PRN (12:49)
[2022-06-14] MEDS: Lactated Ringers 1,000 ML IV SCH (12:55)
[2022-06-14] MEDS: Tranexamic Acid 1,000 MG in Sodium Chloride 0.9% 500 ML IV ONE (13:39)
[2022-06-14] MEDS: Coagulation Factor VIIa Recombinant (per MCG) 2 MG Vial IVPUSH ONE (13:55)
[2022-06-14 15:28] VITALS: PULSE 83
[2022-06-14 16:03] VITALS: BP 125/63
== END 2022-06-14 16:27 ==
LOC: JP.ED 12:11
DX: K92.2 Gastrointestinal hemorrhage, unspecified (principal); I05.0 Rheumatic mitral stenosis; I13.0 Hypertensive heart and chronic kidney disease with heart failure and stage 1 through stage 4 chronic kidney disease, or unspecified chronic kidney disease; I50.33 Acute on chronic diastolic (congestive) heart failure; N18.4 Chronic kidney disease, stage 4 (severe); I25.10 Atherosclerotic heart disease of native coronary artery without angina pectoris; I21.A1 Myocardial infarction type 2; J44.9 Chronic obstructive pulmonary disease, unspecified; F17.210 Nicotine dependence, cigarettes, uncomplicated; E66.9 Obesity, unspecified; Z68.27 Body mass index [BMI] 27.0-27.9, adult; Z88.1 Allergy status to other antibiotic agents; Z79.899 Other long term (current) drug therapy; Z79.01 Long term (current) use of anticoagulants
CPT/HCPCS: 36415; 36430; 80048; 82040; 83735; 84100; 84484; 85025; 85610; 85730; 86850; 86900; 86901; 86920; 86922; 93005; 93010; 96361; 96365; 96366; 96375; 99285; 99285-25; J3490; J7040; J7120; J7189; P9016

== ENCOUNTER 2022-07-21 21:11 | Emergency (ER) | payer MEDICARE, BC ==
[2022-07-21 21:39] VITALS: BP 105/59; PULSE 75
[2022-07-21] MEDS ORDERED: Lidocaine 1% 5 ML VIAL INJECT ONE (21:43)
== END 2022-07-21 22:38 | disposition home or self-care (01) ==
LOC: JP.ED 21:11
DX: L76.21 Postprocedural hemorrhage of skin and subcutaneous tissue following a dermatologic procedure (principal); I13.0 Hypertensive heart and chronic kidney disease with heart failure and stage 1 through stage 4 chronic kidney disease, or unspecified chronic kidney disease; N18.4 Chronic kidney disease, stage 4 (severe); I50.9 Heart failure, unspecified; I48.91 Unspecified atrial fibrillation; E78.00 Pure hypercholesterolemia, unspecified; I25.2 Old myocardial infarction; J44.9 Chronic obstructive pulmonary disease, unspecified; E66.9 Obesity, unspecified; F17.210 Nicotine dependence, cigarettes, uncomplicated; Z99.2 Dependence on renal dialysis; Z79.02 Long term (current) use of antithrombotics/antiplatelets; Z79.899 Other long term (current) drug therapy; Z68.27 Body mass index [BMI] 27.0-27.9, adult
CPT/HCPCS: 12001; 99282